=== PATIENT | female | born 1940 | race Two or more races ===

== ENCOUNTER 2023-06-12 10:10 | Emergency (ER) | payer OTHER ==
[~2023-06-12] VITALS: Ht 162.6 cm; Wt 44.0 kg
[2023-06-12 10:46] LABS: Basophils # (auto) 0 10 ^3/uL (0-0.2); Basophils % (auto) 0.6 % (0.0-2.0); Eosinophils # (auto) 0.2 10 ^3/uL (0-0.8); Eosinophils % (auto) 3.2 % (0.0-7.0); Hematocrit 37.7 % (36.0-46.0); Hemoglobin 12.4 g/dL (12.2-16.2); Lymphocytes # (auto) 1.5 10 ^3/uL (0.4-5.4); Lymphocytes % (auto) 26.4 % (10.0-50.0); Mean Corpuscular Hemoglobin 28.2 pg (28.0-32.0); Mean Corpuscular Hgb Conc. 32.8 g/dL (32.0-36.0); Mean Corpuscular Volume 86.1 fL (80.0-100.0); Monocytes # (auto) 0.7 10 ^3/uL (0-1.3); Monocytes % (auto) 12.5 % (0.0-12.0); Neutrophils # (auto) 3.3 10 ^3/uL (1.6-8.6); Neutrophils % (auto) 57.3 % (37.0-80.0); Red Blood Cells 4.38 10^6/uL (4.0-5.20); Red Cell Distribution Width 15.2 % (11.8-14.3); White Blood Cell 5.7 10^3/uL (4.4-10.8)
[2023-06-12] MEDS ORDERED: hydrALAZINE HCL 20 MG/ML VL IV ONE (11:00)
[2023-06-12 11:13] VITALS: TEMP 97.2; O2SAT 98
[2023-06-12 11:19] LABS: Alanine Aminotransferase 11 U/L (7-40); Albumin 4.5 g/dL (3.2-4.8); Alkaline Phosphatase 78 U/L (46-116); Aspartate Aminotransferase 15 U/L (13-40); BUN/Creatinine Ratio 20.5 (10.0-20.0); Bilirubin, Total 0.5 mg/dL (0.2-1.0); Blood Urea Nitrogen 15 mg/dL (9-23); Calcium 9.5 mg/dL (8.5-10.1); Carbon Dioxide 30 mmol/L (20-30); Glucose 81 mg/dL (74-106); Total Protein 7.2 g/dL (5.7-8.2)
[2023-06-12] MEDS ORDERED: cloNIDine 0.1 mg/24hr 7 DAY PATCH TD ONE (11:30)
[2023-06-12] MEDS ORDERED: ACETAMINOPHEN 500 MG TAB PO ONE (11:30)
[2023-06-12 11:31] LABS: Urine Bacteria FEW /hpf (None Seen); Urine Blood Negative /uL (Negative); Urine Clarity Clear (Clear); Urine Color Colorless (Yellow); Urine Hyaline Cast FEW /lpf (0 - 2); Urine Protein, UAD TRACE (Negative); Urine Specific Gravity 1.009 (1.001-1.035); Urine Urobilinogen Normal (Negative); Urine WBC <1 /hpf (0 - 5); Urine pH 6.5 (5.0-8.0)
[2023-06-12] MEDS ORDERED: VANCOMYCIN HCL 1000 MG VL ONE (11:43)
[2023-06-12] MEDS ORDERED: cloNIDine HCL 0.1 MG TAB PO ONE (11:45)
[2023-06-12 11:57] LABS: Anion Gap 5 (5-15); Chloride 103 mmol/L (98-107); Potassium 4.2 mmol/L (3.5-5.1); Sodium 138 mmol/L (136-145)
[2023-06-12 12:37] VITALS: BP 176/75; PULSE 50; RESP 17
== END 2023-06-12 17:28 | disposition home or self-care (01) ==
LOC: ER 10:10
DX: S22.32XA Fracture of one rib, left side, initial encounter for closed fracture (principal); J44.9 Chronic obstructive pulmonary disease, unspecified; I11.0 Hypertensive heart disease with heart failure; I50.9 Heart failure, unspecified; F17.210 Nicotine dependence, cigarettes, uncomplicated; W19.XXXA Unspecified fall, initial encounter; Y93.89 Activity, other specified; Y92.89 Other specified places as the place of occurrence of the external cause; Y99.8 Other external cause status
CPT/HCPCS: 36415; 71045; 73030; 80053; 81001; 83735; 83880; 84484; 85025; 93005; 99285; J3370

== ENCOUNTER 2023-06-27 12:03 | Inpatient (IN) | payer OTHER ==
[~2023-06-27] VITALS: Ht 162.6 cm; Wt 41.0 kg
[2023-06-27] MEDS ORDERED: LABETALOL HCL 5 MG/ML 4ML SYRINGE IV ONE ×4 (12:30→23:00)
[2023-06-27 12:45] VITALS: PULSE 55; RESP 22; O2SAT 98
[2023-06-27 13:06] LABS: Basophils # (auto) 0 10 ^3/uL (0-0.2); Basophils % (auto) 0.5 % (0.0-2.0); Eosinophils # (auto) 0.1 10 ^3/uL (0-0.8); Eosinophils % (auto) 2.1 % (0.0-7.0); Hematocrit 39.1 % (36.0-46.0); Hemoglobin 12.8 g/dL (12.2-16.2); Lymphocytes # (auto) 1.7 10 ^3/uL (0.4-5.4); Lymphocytes % (auto) 25.1 % (10.0-50.0); Mean Corpuscular Hemoglobin 28.3 pg (28.0-32.0); Mean Corpuscular Hgb Conc. 32.8 g/dL (32.0-36.0); Mean Corpuscular Volume 86.5 fL (80.0-100.0); Monocytes # (auto) 0.7 10 ^3/uL (0-1.3); Monocytes % (auto) 9.9 % (0.0-12.0); Neutrophils # (auto) 4.2 10 ^3/uL (1.6-8.6); Neutrophils % (auto) 62.4 % (37.0-80.0); Nucleated Red Blood Cells % 0.1 %; Red Blood Cells 4.52 10^6/uL (4.0-5.20); Red Cell Distribution Width 15.3 % (11.8-14.3); White Blood Cell 6.7 10^3/uL (4.4-10.8)
[2023-06-27 13:30] LABS: Alanine Aminotransferase 14 U/L (7-40); Albumin 4.8 g/dL (3.2-4.8); Alkaline Phosphatase 81 U/L (46-116); Anion Gap 7 (5-15); Aspartate Aminotransferase 27 U/L (13-40); BUN/Creatinine Ratio 15.9 (10.0-20.0); Bilirubin, Total 0.7 mg/dL (0.2-1.0); Blood Urea Nitrogen 10 mg/dL (9-23); Calcium 9.5 mg/dL (8.5-10.1); Carbon Dioxide 26 mmol/L (20-30); Chloride 101 mmol/L (98-107); Glucose 90 mg/dL (74-106); Potassium 4.1 mmol/L (3.5-5.1); Sodium 134 mmol/L (136-145); Total Protein 7.8 g/dL (5.7-8.2)
[2023-06-27] MEDS ORDERED: HYDROcodone-ACET 5/325MG TAB PO ONE ×2 (13:45→21:45)
[2023-06-27 19:21] LABS: Urine Bacteria NONE SEEN /hpf (None Seen); Urine Blood Negative /uL (Negative); Urine Clarity Clear (Clear); Urine Color Colorless (Yellow); Urine Protein, UAD Negative (Negative); Urine Specific Gravity 1.008 (1.001-1.035); Urine Urobilinogen Normal (Negative); Urine WBC <1 /hpf (0 - 5)
[2023-06-27 22:10] VITALS: PULSE 59; RESP 16; O2SAT 96
[2023-06-28] MEDS ORDERED: ACETAMINOPHEN 325 MG TAB PO PRN
[2023-06-28] MEDS ORDERED: ONDANSETRON HCL 4 MG/2 ML VIAL IV PRN
[2023-06-28 05:48] LABS: Basophils # (auto) 0 10 ^3/uL (0-0.2); Basophils % (auto) 0.6 % (0.0-2.0); Eosinophils # (auto) 0.2 10 ^3/uL (0-0.8); Eosinophils % (auto) 3.7 % (0.0-7.0); Hematocrit 36.9 % (36.0-46.0); Hemoglobin 12.3 g/dL (12.2-16.2); Lymphocytes # (auto) 1.5 10 ^3/uL (0.4-5.4); Lymphocytes % (auto) 27.8 % (10.0-50.0); Mean Corpuscular Hemoglobin 28.7 pg (28.0-32.0); Mean Corpuscular Hgb Conc. 33.5 g/dL (32.0-36.0); Mean Corpuscular Volume 85.6 fL (80.0-100.0); Monocytes # (auto) 0.7 10 ^3/uL (0-1.3); Monocytes % (auto) 13.1 % (0.0-12.0); Neutrophils % (auto) 54.8 % (37.0-80.0); Red Cell Distribution Width 15.2 % (11.8-14.3); White Blood Cell 5.4 10^3/uL (4.4-10.8)
[2023-06-28] MEDS: hydrALAZINE HCL 20 MG/ML VL IV PRN (06:02)
[2023-06-28 06:03] LABS: Alanine Aminotransferase 12 U/L (7-40); Albumin 4.3 g/dL (3.2-4.8); Alkaline Phosphatase 69 U/L (46-116); Anion Gap 8 (5-15); Aspartate Aminotransferase 20 U/L (13-40); BUN/Creatinine Ratio 13.6 (10.0-20.0); Blood Urea Nitrogen 9 mg/dL (9-23); Calcium 9.5 mg/dL (8.5-10.1); Carbon Dioxide 28 mmol/L (20-30); Chloride 104 mmol/L (98-107); Glucose 89 mg/dL (74-106); Sodium 140 mmol/L (136-145)
[2023-06-28 06:04] LABS: Bilirubin, Total 0.7 mg/dL (0.2-1.0); Total Protein 7.1 g/dL (5.7-8.2)
[2023-06-28 07:38] VITALS: RESP 16; O2SAT 96
[2023-06-28] MEDS: LISINOPRIL 20 MG TAB PO SCH (09:52)
[2023-06-28] MEDS: CLOPIDOGREL BISULFATE 75 MG TAB PO SCH (09:52)
[2023-06-28] MEDS: ENOXAPARIN SOD 40 MG/0.4 ML SYRINGE SC SCH (09:53)
[2023-06-28] MEDS: ASPirin 81 mg TAB PO SCH (09:56)
[2023-06-28] MEDS: HYDROcodone-ACET 5/325MG TAB PO PRN (10:05)
[2023-06-28] MEDS ORDERED: IOHEXOL 350 MG/ML 100ML IJ ONE (14:40)
[2023-06-28] MEDS ORDERED: PANT40T PO (16:22)
[2023-06-28] MEDS ORDERED: CLOP75TA70 PO (16:22)
[2023-06-28 16:30] VITALS: PULSE 75; RESP 17; O2SAT 98
[2023-06-28 17:29] VITALS: BP 121/60; PULSE 76; RESP 20; TEMP 98.4; O2SAT 99
[2023-06-28 20:00] VITALS: PULSE 102; PULSE 68; RESP 17; O2SAT 89
[2023-06-28 21:49] VITALS: BP 112/67; PULSE 75; RESP 17; TEMP 98.2; O2SAT 98
[2023-06-29 04:56] VITALS: BP 160/64; PULSE 75; RESP 19; TEMP 97.7; O2SAT 95
[2023-06-29] MEDS: HYDROcodone-ACET 5/325MG TAB PO PRN ×2 (05:08→09:58)
[2023-06-29] MEDS: hydrALAZINE HCL 20 MG/ML VL IV PRN (05:26)
[2023-06-29 05:55] LABS: Basophils # (auto) 0 10 ^3/uL (0-0.2); Basophils % (auto) 0.5 % (0.0-2.0); Eosinophils # (auto) 0.1 10 ^3/uL (0-0.8); Hematocrit 35.8 % (36.0-46.0); Hemoglobin 11.9 g/dL (12.2-16.2); Lymphocytes # (auto) 1.2 10 ^3/uL (0.4-5.4); Lymphocytes % (auto) 21.5 % (10.0-50.0); Mean Corpuscular Hemoglobin 28.7 pg (28.0-32.0); Mean Corpuscular Hgb Conc. 33.2 g/dL (32.0-36.0); Mean Corpuscular Volume 86.4 fL (80.0-100.0); Monocytes # (auto) 0.7 10 ^3/uL (0-1.3); Monocytes % (auto) 11.7 % (0.0-12.0); Neutrophils # (auto) 3.7 10 ^3/uL (1.6-8.6); Neutrophils % (auto) 64.3 % (37.0-80.0); Red Blood Cells 4.14 10^6/uL (4.0-5.20); Red Cell Distribution Width 15.4 % (11.8-14.3); White Blood Cell 5.8 10^3/uL (4.4-10.8)
[2023-06-29 06:04] LABS: Anion Gap 7 (5-15); Carbon Dioxide 25 mmol/L (20-30); Chloride 106 mmol/L (98-107); Potassium 3.8 mmol/L (3.5-5.1); Sodium 138 mmol/L (136-145)
[2023-06-29 06:05] LABS: Calcium 9.2 mg/dL (8.7-10.4)
[2023-06-29 06:10] LABS: BUN/Creatinine Ratio 14.8 (10.0-20.0); Blood Urea Nitrogen 9 mg/dL (9-23); Glucose 104 mg/dL (74-106)
[2023-06-29 08:00] VITALS: BP 116/51; PULSE 77; PULSE 84; RESP 19; O2SAT 98
[2023-06-29 09:00] VITALS: BP 104/39; PULSE 82; RESP 17; TEMP 97.7; O2SAT 99
[2023-06-29] MEDS: CLOPIDOGREL BISULFATE 75 MG TAB PO SCH (09:57)
[2023-06-29] MEDS: LISINOPRIL 20 MG TAB PO SCH (09:57)
[2023-06-29] MEDS: ASPirin 81 mg TAB PO SCH (09:58)
[2023-06-29] MEDS: ENOXAPARIN SOD 40 MG/0.4 ML SYRINGE SC SCH (09:59)
[2023-06-29 13:00] VITALS: BP 142/67; PULSE 81; RESP 18; TEMP 97.4; O2SAT 97
[2023-06-29 16:17] VITALS: BP 116/51; PULSE 70; TEMP 36.3
== END 2023-06-29 18:20 | disposition home or self-care (01) | DRG 305 ==
LOC: ER 12:03 → TELE 23:50 → TELE-WESTW 06-28 16:16
PROVIDERS: ADMIT Nurse Practitioner; ATTEND Nurse Practitioner Acute Care
DX: I16.1 Hypertensive emergency (principal); Z68.1 Body mass index [BMI] 19.9 or less, adult; R64 Cachexia; I73.9 Peripheral vascular disease, unspecified; I25.10 Atherosclerotic heart disease of native coronary artery without angina pectoris; E78.5 Hyperlipidemia, unspecified; F17.210 Nicotine dependence, cigarettes, uncomplicated; I11.0 Hypertensive heart disease with heart failure; I50.9 Heart failure, unspecified; I65.23 Occlusion and stenosis of bilateral carotid arteries; J44.9 Chronic obstructive pulmonary disease, unspecified; R29.6 Repeated falls; Z95.5 Presence of coronary angioplasty implant and graft; Z95.1 Presence of aortocoronary bypass graft
CPT/HCPCS: 36415; 70450; 71045; 75635; 80048; 80053; 81001; 84484; 85025; 87081; 93005; 93306; 93886; 96374; 96376; G0378; J3490

== ENCOUNTER 2024-04-05 16:29 | Emergency (ER) | payer OTHER ==
[~2024-04-05] VITALS: Ht 162.6 cm; Wt 45.4 kg
[~2024-04-05 16:29] MED LIST: CLOP75TA70 PO; PANT40T PO
[2024-04-05 16:38] VITALS: BP 118/71; RESP 15; O2SAT 96
[2024-04-05 16:58] VITALS: PULSE 61
[2024-04-05 17:02] LABS: Basophils # (auto) 0.1 10 ^3/uL (0-0.2); Basophils % (auto) 0.8 % (0.0-2.0); Eosinophils # (auto) 0.2 10 ^3/uL (0-0.8); Eosinophils % (auto) 2.6 % (0.0-7.0); Hematocrit 36.2 % (36.0-46.0); Hemoglobin 11.9 g/dL (12.2-16.2); Lymphocytes # (auto) 1.7 10 ^3/uL (0.4-5.4); Lymphocytes % (auto) 21.2 % (10.0-50.0); Mean Corpuscular Hemoglobin 28.8 pg (28.0-32.0); Mean Corpuscular Hgb Conc. 32.9 g/dL (32.0-36.0); Mean Corpuscular Volume 87.5 fL (80.0-100.0); Monocytes # (auto) 0.7 10 ^3/uL (0-1.3); Neutrophils # (auto) 5.2 10 ^3/uL (1.6-8.6); Neutrophils % (auto) 66.4 % (37.0-80.0); Nucleated Red Blood Cells % 0.1 %; Red Blood Cells 4.14 10^6/uL (4.0-5.20); Red Cell Distribution Width 15.4 % (11.8-14.3); White Blood Cell 7.8 10^3/uL (4.4-10.8)
[2024-04-05 17:25] LABS: Alanine Aminotransferase 11 U/L (7-40); Alkaline Phosphatase 101 U/L (46-116); Calcium 9.6 mg/dL (8.7-10.4); Carbon Dioxide 25 mmol/L (20-30); Chloride 107 mmol/L (98-107); Glucose 117 mg/dL (74-106); Potassium 3.8 mmol/L (3.5-5.1)
[2024-04-05 17:26] LABS: Anion Gap 8 (5-15); Aspartate Aminotransferase 18 U/L (13-40); BUN/Creatinine Ratio 13.6 (10.0-20.0); Bilirubin, Total 0.2 mg/dL (0.2-1.0); Blood Urea Nitrogen 11 mg/dL (9-23); Sodium 140 mmol/L (136-145); Total Protein 6.3 g/dL (5.7-8.2)
== END 2024-04-05 19:04 | disposition left against medical advice (07) ==
LOC: ER 16:29
DX: R51.9 Headache, unspecified (principal); R42 Dizziness and giddiness; M54.2 Cervicalgia; F17.210 Nicotine dependence, cigarettes, uncomplicated
CPT/HCPCS: 36415; 70450; 80053; 82962; 84484; 85025; 93005

== ENCOUNTER 2024-07-19 19:25 | Inpatient (IN) | payer OTHER ==
[~2024-07-19] VITALS: Ht 157.5 cm; Wt 44.4 kg
[2024-07-19 20:40] VITALS: BP 114/64; PULSE 77; RESP 18; TEMP 97.8; O2SAT 99
[2024-07-19 20:48] VITALS: BP 114/64; PULSE 77; RESP 18; TEMP 97.8; O2SAT 98
[2024-07-19 21:00] VITALS: BP 114/64; PULSE 77; RESP 18; TEMP 97.8; O2SAT 98
[2024-07-19] MEDS ORDERED: NITROGLYCERIN 0.4 MG SL TAB SL PRN (23:45)
[2024-07-19] MEDS ORDERED: HYDROcodone-ACET 5/325MG TAB PO PRN (23:45)
[2024-07-19] MEDS ORDERED: MORPHINE SULFATE INJ 2 MG/ml SYRG IV PRN (23:45)
[2024-07-19] MEDS ORDERED: DOCUSATE SOD 100 MG CAP PO PRN (23:45)
[2024-07-19] MEDS ORDERED: ACETAMINOPHEN 325 MG TAB PO PRN (23:45)
[2024-07-19] MEDS ORDERED: ONDANSETRON HCL 4 MG/2 ML VIAL IV PRN (23:45)
[2024-07-19] MEDS ORDERED: METO25TA93 PO (23:55)
[2024-07-19] MEDS ORDERED: AMLO1TAB23 PO (23:55)
[2024-07-19] MEDS ORDERED: AMLO1TAB22 PO (23:55)
[2024-07-19] MEDS ORDERED: LISI10TA34 PO (23:55)
[2024-07-19] MEDS ORDERED: MET25T PO (23:55)
[2024-07-19] MEDS ORDERED: ASPI-628 PO (23:55)
[2024-07-20] VITALS (8 sets, daily range): BP systolic 125–168; BP diastolic 52–76; PULSE 61–79; RESP 17–18; TEMP 97.7–98.2; O2SAT 96–98
[2024-07-20] MEDS: D5W/SOD CHLO 0.9% 1,000 ML IV SCH (00:08)
[2024-07-20] MEDS: LEVOTHYROXINE SODIUM 50 MCG TAB PO SCH (05:54)
[2024-07-20 07:29] LABS: Basophils # (auto) 0.1 10 ^3/uL (0-0.2); Basophils % (auto) 0.9 % (0.0-2.0); Eosinophils # (auto) 0.2 10 ^3/uL (0-0.8); Eosinophils % (auto) 4.1 % (0.0-7.0); Hematocrit 30.1 % (36.0-46.0); Lymphocytes # (auto) 1.5 10 ^3/uL (0.4-5.4); Lymphocytes % (auto) 24.5 % (10.0-50.0); Mean Corpuscular Hemoglobin 29.3 pg (28.0-32.0); Mean Corpuscular Hgb Conc. 33.3 g/dL (32.0-36.0); Mean Corpuscular Volume 87.9 fL (80.0-100.0); Monocytes # (auto) 0.5 10 ^3/uL (0-1.3); Monocytes % (auto) 7.6 % (0.0-12.0); Neutrophils # (auto) 3.8 10 ^3/uL (1.6-8.6); Neutrophils % (auto) 62.9 % (37.0-80.0); Nucleated Red Blood Cells % 0.2 %; Platelet Count (auto) 384 10^3/uL (140-450); Red Blood Cells 3.42 10^6/uL (4.0-5.20); Red Cell Distribution Width 14.7 % (11.8-14.3)
[2024-07-20 07:38] LABS: Albumin 3.9 g/dL (3.2-4.8); Alkaline Phosphatase 69 U/L (46-116); Anion Gap 8 (5-15); Aspartate Aminotransferase 12 U/L (13-40); Bilirubin, Total 0.4 mg/dL (0.2-1.0); Blood Urea Nitrogen 8 mg/dL (9-23); Calcium 9.2 mg/dL (8.7-10.4); Carbon Dioxide 24 mmol/L (20-31); Chloride 107 mmol/L (98-107); Glucose 105 mg/dL (74-106); Potassium 3.9 mmol/L (3.5-5.1); Sodium 139 mmol/L (136-145)
[2024-07-20 07:39] LABS: Total Protein 6.3 g/dL (5.7-8.2)
[2024-07-20 07:45] LABS: Alanine Aminotransferase < 9 U/L (7-40)
[2024-07-20] MEDS: PANTOPRAZOLE 40 MG/10 ML VIAL INJ IV SCH (12:08)
[2024-07-20] MEDS: METOPROLOL TARTRATE 25 MG TAB PO SCH (12:08)
[2024-07-20] MEDS: TAMSULOSIN HYDROCHLORIDE 0.4 MG CAP PO SCH (18:00)
[2024-07-20] MEDS: hydrALAZINE HCL 20 MG/ML VL IV PRN (18:16)
[2024-07-20] MEDS: ATORVASTATIN 20 MG TAB PO SCH (21:48)
[2024-07-20] MEDS: amLODIPine BESYLATE 5 MG TAB PO SCH (21:48)
[2024-07-21] VITALS (8 sets, daily range): BP systolic 114–150; BP diastolic 54–71; PULSE 62–97; RESP 17–18; TEMP 97.4–98.4; O2SAT 96–99
[2024-07-21 07:51] LABS: Basophils # (auto) 0 10 ^3/uL (0-0.2); Basophils % (auto) 0.3 % (0.0-2.0); Eosinophils # (auto) 0 10 ^3/uL (0-0.8); Eosinophils % (auto) 0.5 % (0.0-7.0); Hematocrit 32.7 % (36.0-46.0); Hemoglobin 10.7 g/dL (12.2-16.2); Lymphocytes # (auto) 1.3 10 ^3/uL (0.4-5.4); Lymphocytes % (auto) 15.6 % (10.0-50.0); Mean Corpuscular Hemoglobin 29.1 pg (28.0-32.0); Mean Corpuscular Hgb Conc. 32.8 g/dL (32.0-36.0); Mean Corpuscular Volume 88.7 fL (80.0-100.0); Monocytes # (auto) 0.5 10 ^3/uL (0-1.3); Monocytes % (auto) 6.3 % (0.0-12.0); Neutrophils # (auto) 6.3 10 ^3/uL (1.6-8.6); Neutrophils % (auto) 77.3 % (37.0-80.0); Nucleated Red Blood Cells % 0.1 %; Platelet Count (auto) 391 10^3/uL (140-450); Red Blood Cells 3.69 10^6/uL (4.0-5.20); Red Cell Distribution Width 15.1 % (11.8-14.3); White Blood Cell 8.1 10^3/uL (4.4-10.8)
[2024-07-21 08:03] LABS: Alkaline Phosphatase 73 U/L (46-116); Anion Gap 9 (5-15); Calcium 9.7 mg/dL (8.7-10.4); Carbon Dioxide 23 mmol/L (20-31); Chloride 105 mmol/L (98-107); Glucose 110 mg/dL (74-106); Potassium 3.6 mmol/L (3.5-5.1); Sodium 137 mmol/L (136-145)
[2024-07-21 08:04] LABS: Albumin 4.2 g/dL (3.2-4.8); Aspartate Aminotransferase 16 U/L (13-40); Bilirubin, Total 0.4 mg/dL (0.2-1.0); Total Protein 6.8 g/dL (5.7-8.2)
[2024-07-21 08:14] LABS: Alanine Aminotransferase < 9 U/L (7-40); BUN/Creatinine Ratio 9.4 (10.0-20.0); Blood Urea Nitrogen < 5 mg/dL (9-23)
[2024-07-21 08:26] LABS: INR 1.05 (0.9-1.15); Partial Thromboplastin Time 26.1 SEC (24.5-34.5); Prothrombin Time 11.1 sec (9.3-11.8)
[2024-07-22 05:00] VITALS: BP 150/67; PULSE 69; RESP 18; TEMP 98.4; O2SAT 98
[2024-07-22 06:59] LABS: Chloride 106 mmol/L (98-107); Potassium 3.7 mmol/L (3.5-5.1); Sodium 138 mmol/L (136-145)
[2024-07-22 07:00] LABS: Anion Gap 7 (5-15); Carbon Dioxide 25 mmol/L (20-31)
[2024-07-22 07:01] LABS: Calcium 9.4 mg/dL (8.7-10.4)
[2024-07-22 07:05] LABS: BUN/Creatinine Ratio 10.3 (10.0-20.0); Blood Urea Nitrogen 7 mg/dL (9-23); Glucose 103 mg/dL (74-106)
[2024-07-22 07:09] LABS: Basophils # (auto) 0 10 ^3/uL (0-0.2); Basophils % (auto) 0.5 % (0.0-2.0); Eosinophils # (auto) 0.1 10 ^3/uL (0-0.8); Eosinophils % (auto) 2.1 % (0.0-7.0); Hematocrit 29.8 % (36.0-46.0); Lymphocytes # (auto) 1.5 10 ^3/uL (0.4-5.4); Mean Corpuscular Hgb Conc. 33.6 g/dL (32.0-36.0); Mean Corpuscular Volume 86.4 fL (80.0-100.0); Monocytes # (auto) 0.6 10 ^3/uL (0-1.3); Monocytes % (auto) 9.3 % (0.0-12.0); Neutrophils # (auto) 4.6 10 ^3/uL (1.6-8.6); Neutrophils % (auto) 67.1 % (37.0-80.0); Nucleated Red Blood Cells % 0.1 %; Platelet Count (auto) 387 10^3/uL (140-450); Red Blood Cells 3.45 10^6/uL (4.0-5.20); Red Cell Distribution Width 14.8 % (11.8-14.3); White Blood Cell 6.9 10^3/uL (4.4-10.8)
[2024-07-22 08:30] VITALS: PULSE 91; RESP 18; O2SAT 99
[2024-07-22 09:00] VITALS: BP 124/57; PULSE 85; RESP 16; TEMP 98; O2SAT 93
[2024-07-22] MEDS: PANTOPRAZOLE 40 MG TAB PO SCH (10:06)
[2024-07-22] MEDS ORDERED: PANT40T PO (10:44)
[2024-07-22 13:00] VITALS: BP 127/67; PULSE 75; RESP 18; TEMP 97.6; O2SAT 98
[2024-07-22 13:59] VITALS: BP 134/91; PULSE 91; RESP 18; TEMP 98.1; O2SAT 99
== END 2024-07-22 15:52 | disposition home or self-care (01) | DRG 377 ==
LOC: TELE-CENTR 20:40 → CENTRAL 07-21 03:36
PROVIDERS: ADMIT Internal Medicine; ATTEND Internal Medicine
DX: K92.2 Gastrointestinal hemorrhage, unspecified (principal); E43 Unspecified severe protein-calorie malnutrition; Z68.1 Body mass index [BMI] 19.9 or less, adult; I50.30 Unspecified diastolic (congestive) heart failure; D64.9 Anemia, unspecified; I11.0 Hypertensive heart disease with heart failure; I25.10 Atherosclerotic heart disease of native coronary artery without angina pectoris; E78.5 Hyperlipidemia, unspecified; I73.9 Peripheral vascular disease, unspecified; K21.9 Gastro-esophageal reflux disease without esophagitis; E03.9 Hypothyroidism, unspecified; H91.93 Unspecified hearing loss, bilateral; F17.210 Nicotine dependence, cigarettes, uncomplicated; I65.23 Occlusion and stenosis of bilateral carotid arteries; Z98.61 Coronary angioplasty status; T39.015A Adverse effect of aspirin, initial encounter; T45.525A Adverse effect of antithrombotic drugs, initial encounter
CPT/HCPCS: 36415; 80048; 80053; 82270; 84443; 85025; 85610; 85730; 97110; 97116; 97163; 97530; G0378; J2470

== ENCOUNTER 2024-10-31 11:42 | Emergency (ER) | payer OTHER ==
[~2024-10-31] VITALS: Ht 162.6 cm; Wt 47.5 kg
[~2024-10-31 11:42] MED LIST changes: +AMLO1TAB23 PO; -CLOP75TA70 PO; +LISI10TA34 PO; +MET25T PO; +METO25TA93 PO
[2024-10-31] MEDS: CLINDAMYCIN 600MG IV 50 ML IV ONE (12:00)
--- NOTE | 2024-10-31 12:10 | ED.PDOC ---
Musculoskeletal HPI Comments 84y F who presents to the ED for chief complaint of lower extremity swelling. Per pt son, pt has been having R lower extremity swelling for the past 1 month. Pt son states pt does not like hospitals and did not want to been evaluated for her symptoms. Pt for the past 1 week has noted L lower extremity swelling and pain with noted multiple sores and states the pain became severe pt son brought pt to the local urgent. Urgent care staff referred pt to the ED due to pt history of CHF for further evaluation. Pt now in the ED, otherwise denies fever, cough, chills, shortness of breath or chest pain. Pt denies any other symptoms at this time. Chief Complaint: Lower Extremity Time Seen by MD: 12:04 Primary Care Provider: ADRIANA Reviewed Notes: Nurses Notes, Clinic Receptionist Notes, Medications, Allergies (NKDA ) Allergies: Coded Allergies: No Known Drug Allergy (Verified Allergy, Unknown, 09/28/23) Home Meds Active Scripts Pantoprazole Sodium Sesquihydr (Pantoprazole Sodium) 40 Mg Tab, 1 TAB PO BID for 14 Days, #28 TAB Prov:CASSI PHAM RESIDENT 07/22/24 Reported Medications Metoprolol Tartrate (Lopressor) 25 Mg Tb, 1 TAB PO BID 07/19/24 Lisinopril (Lisinopril) 10 Mg Tab, 1 TAB PO DAILY 07/19/24 Amlodipine Besylate (Amlodipine Besylate) 10 Mg Tab, 1 TAB PO DAILY 07/19/24 Metoprolol Succinate (Metoprolol Succinate Er) 25 Mg Tab, 1 TAB PO DAILY 07/19/24 Information Source: Patient, Relative Mode of Arrival: Ambulatory Brought in by: pt son Location: Bilateral Extremity Location: Foot, Leg Timing: Weeks, Months Prehospital treatment: None Severity: Moderate Able to Move Extremity: Yes Bear Weight: Limited Pain: Moderate Mechanism: Spontaneous Circumstances: Spontaneous Onset of Symptoms: Spontaneous Symptoms: Swelling, Pain DVT Risk Factors: CHF Last Tetanus: Unknown Associated signs and symptoms: Swelling, Leg pain, Foot pain Past Medical History PAST MEDICAL HISTORY: CHF, High Lipids, HTN Surgical History: PTCA Surgical History (Other): L leg surgery PETROLEUM ENGINEER History: Denies all PETROLEUM ENGINEER Hx Family History Family History: Reviewed,noncontributory to illness Social History Smoker: Cigarettes Alcohol: Occasionally Drugs: Denies Drug Use Lives In: Home Constitutional: denies: chills, diaphoresis, fatigue, fever, malaise, sweats, weakness, others EENTM: denies: blurred vision, double vision, ear bleeding, ear discharge, ear drainage, ear pain, ear ringing, eye pain, eye redness, hearing loss, mouth pain, mouth swelling, nasal discharge, nose bleeding, nose congestion, nose pa in, photophobia, tearing, throat pain, throat swelling, voice changes, others Respiratory: denies: cough, hemoptysis, orthopnea, SOB at rest, shortness of breath, SOB with excertion, stridor, wheezing, others Cardiovascular: denies: chest pain, dizzy spells, diaphoresis, Dyspnea on exertion, edema, irregular heart beat, left arm pain, lightheadedness, palpitations, PND, syncope, others Gastrointestinal: denies: abdomen distended, abdominal pain, blood streaked bowels, constipated, diarrhea, dysphagia, difficulty swallowing, hematemesis, melena, nausea, poor appetite, poor fluid intake, rectal bleeding, rectal pain, vomiting, others Genitourinary: denies: abnormal vagina bleeding, burning, dyspareunia, dysuria, flank pain, frequency, hematuria, incontinence, pain, , vagina discharge, urgency, others Neurological: denies: dizziness, fainting, headache, left sided numbness, left sided weakness, numbness, paresthesia, pre-existing deficit, right sided numbness, right sided weakness, seizure, speech problems, tingling, tremors, weakness, others Musculoskeletal: reports: joint pain (b/l), joint swelling (b/l); denies: back pain, gout, muscle pain, muscle stiffness, neck pain, others Integumetry: denies: bruises, change in color, change in hair/nails, dryness, laceration, lesions, lumps, rash, wounds, others Allergic/Immunocompromised: denies: Difficulty Healing, Frequent Infections, Hives, Itching, others Hematologic/Lymphatic: denies: anemia, blood clots, easy bleeding, easy bruising, swollen glands, others Endocrine: denies: excessive hunger, excessive sweating, excessive thirst, excessive urination, flushing, intolerance to cold, intolerance to heat, unexplained weight gain, unexplained weight loss, others Psychiatric: denies: anxiety, bipolar disorder, depression, hopeless, panic disorder, schizophrenia, sleepless, suicidal, others All Other Systems: Reviewed and Negative Physical Exam General Appearance: Moderate Distress HEENT: Normal ENT Inspection, Pharynx Normal, TMs Normal Neck: Full Range of Motion, Non-Tender, Normal, Normal Inspection Respiratory: Chest Non-Tender, Lungs Clear, No Accessory Muscle Use, No Respiratory Distress, Normal Breath Sounds Cardiovascular: No Edema, No JVD, No Murmur, No Gallop, Normal Peripheral Pulses, Regular Rate/Rhythm Breast Exam: Deferred Gastrointestinal: No Organomegaly, Non Tender, No Pulsatile Mass, Normal Bowel Sounds, Soft Genitalia: Deferred Pelvic: Deferred Rectal: Deferred Extremities: No calf tenderness, Normal capillary refill, Normal inspection, Normal range of motion, Non-tender, No pedal edema Musculoskeletal : Apperance: Normal Neurologic: Alert, wafer machine operator II-XII nml as Tested, No Motor Deficits, Normal Affect, Normal Mood, No Sensory Deficits Cerebellar Function: Normal Reflexes: Normal Skin: Dry, Normal Color, Warm Lymphatic: No Adenopathy Was a procedure done? Was a procedure done?: No Differential Diagnosis EXT Differential Diagnosis: Cellulitis, CHF, Deep Vein Thrombosis, Gout, Arthritis Other Differential Diagnosis cellulitis, X-Ray, Labs, Meds, VS Vital Signs Date Time Temp Pulse Resp B/P (MAP) Pulse Ox O2 Delivery O2 Flow Rate FiO2 10/31/24 14:18 98.3 65 18 135/42 (73) 95 98.3 10/31/24 12:30 69 16 95 Room Air 10/31/24 12:30 69 18 140/53 (82) 95 10/31/24 12:02 65 10/31/24 11:55 97.6 65 18 155/60 (91) 93 Lab Test 10/31/24 12:12 Range/Units White Blood Count 7.0 4.4-10.8 10^3/uL Red Blood Count 4.27 4.0-5.20 10^6/uL Hemoglobin 9.8 L 12.2-16.2 g/dL Hematocrit 31.1 L 36.0-46.0 % Mean Corpuscular Volume 72.9 L 80.0-100.0 fL Mean Corpuscular Hemoglobin 23.0 L 28.0-32.0 pg Mean Corpuscular Hemoglobin Concent 31.5 L 32.0-36.0 g/dL Red Cell Distribution Width 16.9 H 11.8-14.3 % Platelet Count 477 H 140-450 10^3/uL Mean Platelet Volume 7.1 6.9-10.8 fL Neutrophils (%) (Auto) 64.5 37.0-80.0 % Lymphocytes (%) (Auto) 21.7 10.0-50.0 % Monocytes (%) (Auto) 11.6 0.0-12.0 % Eosinophils (%) (Auto) 1.2 0.0-7.0 % Basophils (%) (Auto) 1.0 0.0-2.0 % Neutrophils # (Auto) 4.5 1.6-8.6 10 ^3/uL Lymphocytes # (Auto) 1.5 0.4-5.4 10 ^3/uL Monocytes # (Auto) 0.8 0-1.3 10 ^3/uL Eosinophils # (Auto) 0.1 0-0.8 10 ^3/uL Basophils # (Auto) 0.1 0-0.2 10 ^3/uL Nucleated Red Blood Cells 0.0 % Erythrocyte Sedimentation Rate 17 0-20 mm/hr Sodium Level 131 L 136-145 mmol/L Potassium Level 4.4 3.5-5.1 mmol/L Chloride Level 100 98-107 mmol/L Carbon Dioxide Level 22 20-31 mmol/L Anion Gap 9 5-15 Blood Urea Nitrogen 9 9-23 mg/dL Creatinine 0.73 0.550-1.02 mg/dL Glomerular Filtration Rate Calc 82 >90 mL/min BUN/Creatinine Ratio 12.3 10.0-20.0 Serum Glucose 107 H 74-106 mg/dL Uric Acid 5.6 3.1-7.8 mg/dL Calcium Level 10.1 8.7-10.4 mg/dL B-Type Natriuretic Peptide 541.09 0-100 pg/mL Current Medications Medications (Trade) Dose Ordered Sig/Felipe Route Start Time Stop Time Status Last Admin Clindamycin Phosphate 50 ml @ 50 mls/hr ONCE ONCE IV 10/31/24 12:00 10/31/24 12:59 DC 10/31/24 13:26 The patient's CBC shows anemia with a hemoglobin of 9.8 hematocrit of 31.1 The patient's platelets are within normal limits The uric acid is within normal limits The BNP is 541 The patient was started on clindamycin IV piggyback The patient was being admitted with a diagnosis of bilateral lower extremity cellulitis The patient understands and agrees with the management. Images Reviewed?: Images reviewed and evaluated by me Time of 1ST Reevaluation: 12:35 Reevaluation 1ST: Unchanged Patient Education/Counseling: Diagnosis, Treatment, Prognosis Family Education/Counseling: Diagnosis, Treatment, Prognosis Additional Information - I reviewed the following notes from patient's past medical encounters: - The following tests were ordered, and results were reviewed by me: (Labs, X- Ray, EKG): cbc, cmp, ESR, uric acid, b/l lower extremity US, BNP - Additional information was gathered from interviewing the following independen t Historian: (Family, Other Providers, EMT): pt son, - I reviewed and agreed with the following test results read by other provider: (X-ray, CT, US): radiologist - I discussed treatments and results with medical personnel and: (consultants, family): none Departure 1 Departure Time of Disposition: 14:28 Impression: Primary Impression: Bilateral lower leg cellulitis Disposition: ADMITTED INPATIENT Admit to: Med Surg Condition: Fair Critical Care Note Critical Care Time?: No Stability Stability form required: Yes Unstable for transfer: ED Physician Assesment (Clinical assesment) Heart Score Heart Score: Heart Score Response (Comments) Value History N/A 0 EKG N/A 0 Age N/A 0 Risk Factors N/A 0 Troponin N/A 0 Total 0 I personally scribed for FAMILIA JAMES MD ([email or web address]) on 10/31/24 at 12:10. Electronically submitted by Carl Robbins ([email or web address]). FAMILIA JAMES MD Oct 31, 2024 12:10
[2024-10-31 12:29] LABS: Basophils # (auto) 0.1 10 ^3/uL (0-0.2); Eosinophils # (auto) 0.1 10 ^3/uL (0-0.8); Hemoglobin 9.8 g/dL (12.2-16.2); Lymphocytes # (auto) 1.5 10 ^3/uL (0.4-5.4); Monocytes # (auto) 0.8 10 ^3/uL (0-1.3); Neutrophils # (auto) 4.5 10 ^3/uL (1.6-8.6)
[2024-10-31 12:30] LABS: Eosinophils % (auto) 1.2 % (0.0-7.0); Hematocrit 31.1 % (36.0-46.0); Lymphocytes % (auto) 21.7 % (10.0-50.0); Mean Corpuscular Hgb Conc. 31.5 g/dL (32.0-36.0); Mean Corpuscular Volume 72.9 fL (80.0-100.0); Monocytes % (auto) 11.6 % (0.0-12.0); Neutrophils % (auto) 64.5 % (37.0-80.0); Platelet Count (auto) 477 10^3/uL (140-450); Red Blood Cells 4.27 10^6/uL (4.0-5.20); Red Cell Distribution Width 16.9 % (11.8-14.3)
[2024-10-31 12:33] LABS: Chloride 100 mmol/L (98-107); Potassium 4.4 mmol/L (3.5-5.1)
[2024-10-31 12:34] LABS: Anion Gap 9 (5-15); Carbon Dioxide 22 mmol/L (20-31)
[2024-10-31 12:35] LABS: Calcium 10.1 mg/dL (8.7-10.4); Sodium 131 mmol/L (136-145)
[2024-10-31 12:38] LABS: Uric Acid 5.6 mg/dL (3.1-7.8)
[2024-10-31 12:39] LABS: BUN/Creatinine Ratio 12.3 (10.0-20.0)
[2024-10-31 12:40] LABS: Blood Urea Nitrogen 9 mg/dL (9-23); Glucose 107 mg/dL (74-106)
[2024-10-31 13:07] LABS: Erythrocyte Sedimentation Rate 17 mm/hr (0-20)
--- NOTE | 2024-10-31 13:40 | DVH ---
BILATERAL LOWER EXTREMITY VENOUS DOPPLER CLINICAL HISTORY: swelling Technique: Duplex Doppler evaluation of the deep venous systems of both lower extremities from the co mmon femoral veins to the popliteal veins including color Doppler and spectral/pulsed waveform analys is was performed. COMPARISON: None FINDINGS: The right and left common femoral, superficial femoral, popliteal, posterior tibial veins and trifur cations appear patent with normal augmentation, phasicity, compressibility and color-flow. There is a 3.4 cm umanzor's cyst in the left popliteal fossa. IMPRESSION: 1. There is no sonographic evidence for DVT in the lower extremities. HS:Y
[2024-10-31 14:18] VITALS: BP 135/42; PULSE 65; RESP 18; TEMP 98.3; O2SAT 95
== END 2024-10-31 17:20 | disposition left against medical advice (07) ==
LOC: ER 11:49
DX: L03.115 Cellulitis of right lower limb (principal); L03.116 Cellulitis of left lower limb; I11.0 Hypertensive heart disease with heart failure; I50.9 Heart failure, unspecified; E78.5 Hyperlipidemia, unspecified; F17.210 Nicotine dependence, cigarettes, uncomplicated; Z79.899 Other long term (current) drug therapy; Z98.890 Other specified postprocedural states
CPT/HCPCS: 36415; 80048; 83880; 84550; 85025; 85652; 93970; 96365; 99285; J3490

== ENCOUNTER 2024-12-05 00:23 | Inpatient (IN) | payer OTHER ==
[~2024-12-05] VITALS: Ht 162.6 cm; Wt 44.2 kg
[~2024-12-05 00:23] MED LIST changes: +CLOP75TA70 PO; +FURO20TA3 PO; +HYDR-4798 PO; +MECL-126 PO; +PANT40TA2 PO; +POTA-228 PO
--- NOTE | 2024-12-05 00:33 | ED.PDOC ---
History of Present Illness HPI Comments 84 year old female brought in by EMS presents to the ED with a chief complaint of a-fib/RVR onset yesterday (12/04/24). Patient was transferred from [facility] due to A-fib/RVR, sepsis secondary to Pneumonia, patient is currently on Cardizem. Per EMS, patient was treated with IV fluids, Azithromycin, Rocephin, O2 sat 91% on 5L. Patient is a poor historian, complains of LT shoulder pain. PMHx a-fib, CHF, HLD, HTN. No other symptoms or modifying factors present at this time. Time Seen by MD: 01:35 Primary Care Provider: WRIGHT Reviewed Notes: Medications, Allergies Allergies: Coded Allergies: No Known Drug Allergy (Verified Allergy, Unknown, 09/28/23) Home Meds Active Scripts Pantoprazole Sodium Sesquihydr (Pantoprazole Sodium) 40 Mg Tab, 1 TAB PO BID for 14 Days, #28 TAB Prov:CASSI PHAM RESIDENT 07/22/24 Reported Medications Metoprolol Tartrate (Lopressor) 25 Mg Tb, 1 TAB PO BID 07/19/24 Lisinopril (Lisinopril) 10 Mg Tab, 1 TAB PO DAILY 07/19/24 Amlodipine Besylate (Amlodipine Besylate) 10 Mg Tab, 1 TAB PO DAILY 07/19/24 Metoprolol Succinate (Metoprolol Succinate Er) 25 Mg Tab, 1 TAB PO DAILY 07/19/24 Information Source: Patient, Emergency Med Personnel Mode of Arrival: EMS Severity: Moderate Timing: Days Duration: Since onset Prehospital treatment: None Vital Signs Vital Signs Date Time Temp Pulse Resp B/P (MAP) Pulse Ox O2 Delivery O2 Flow Rate FiO2 12/05/24 01:00 82 12/05/24 00:49 98.3 16 105/45 (65) 30 98.3 Physical Exam General: Awake, alert and oriented. No acute distress. Skin: Skin in warm, dry and intact. Appropriate color for ethnicity. HEENT: The head is normocephalic and atraumatic. Conjunctivae are clear without exudates or hemorrhage. Sclera is non-icteric. EOM are intact. No signs of nystagmus. Eyelids are normal in appearance without swelling or lesions. Oral mucosa is pink and moist Neck: The neck is supple with normal range of motion. No JVD. Cardiac: Heart rate and rhythm are normal. No murmurs, gallops, or rubs are auscultated. Respiratory: No signs of respiratory distress. Lung sounds are clear in all lobes bilaterally without rales, ronchi, or wheezes. Abdominal: Abdomen is soft, non-tender without distention. Bowel sounds are present and normoactive in all four quadrants. Extremities: Upper and lower extremities are atraumatic in appearance without deformity or edema. Neurological: The patient is awake, alert and oriented to person, place, and time with normal speech. Speech is clear. There is no facial asymmetry. Psychiatric: Appropriate mood and affect. Good judgement and insight. No visual or auditory hallucinations. Review of Systems: REVIEW OF SYSTEMS: No fever, no chills, or fatigue HEENT: No sore throat, no earache, no congestion, no neck pain. Cardiac: No chest pain. No palpitations. Lungs: No shortness of breath, no cough. GI: No nausea, no vomiting, no diarrhea, no constipation, no abdominal pain : No dysuria, frequency, or urgency. No hematuria. Musculoskeletal: No joint pain , no joint swelling, no extremity edema. Skin: No rash, no itching. Neuro: No headache, no dizziness, no weakness Past Medical History PAST MEDICAL HISTORY: AFIB, CHF, High Lipids, HTN Surgical History: PTCA CLOTH HAND History: Denies all CLOTH HAND Hx Family History Family History: Reviewed,noncontributory to illness Social History Smoker: Cigarettes Alcohol: Occasionally Drugs: Denies Drug Use Lives In: Home Was a procedure done? Was a procedure done?: No Differential Dx Considerations may include: Sepsis, urinary tract infection, atrial fibrillation, ACS, pneumonia, pulmonary edema, he will congestive heart failure with X-Ray, Labs, Meds, VS Vital Signs Date Time Temp Pulse Resp B/P (MAP) Pulse Ox O2 Delivery O2 Flow Rate FiO2 12/05/24 01:00 82 12/05/24 00:49 98.3 111 16 105/45 (65) 30 98.3 12/05/24 00:44 109 12/05/24 00:41 98.3 102 16 115/82 (93) 100 Lab Test 12/05/24 02:30 12/05/24 00:35 Range/Units Haptoglobin Pending Lactic Acid Level Pending 5.4 *H 0.4-2.0 mmol/L White Blood Count 14.1 H 4.4-10.8 10^3/uL Red Blood Count 3.86 L 4.0-5.20 10^6/uL Hemoglobin 8.9 L 12.2-16.2 g/dL Hematocrit 29.0 L 36.0-46.0 % Mean Corpuscular Volume 75.2 L 80.0-100.0 fL Mean Corpuscular Hemoglobin 23.2 L 28.0-32.0 pg Mean Corpuscular Hemoglobin Concent 30.8 L 32.0-36.0 g/dL Red Cell Distribution Width 19.0 H 11.8-14.3 % Platelet Count 300 140-450 10^3/uL Mean Platelet Volume 7.7 6.9-10.8 fL Neutrophils (%) (Auto) 37.0-80.0 % Lymphocytes (%) (Auto) 10.0-50.0 % Monocytes (%) (Auto) 0.0-12.0 % Basophils (%) (Auto) 0.0-2.0 % Neutrophils # (Auto) 1.6-8.6 10 ^3/uL Lymphocytes # (Auto) 0.4-5.4 10 ^3/uL Monocytes # (Auto) 0-1.3 10 ^3/uL Differential Total Cells Counted Pending Neutrophils % (Manual) Pending Band Neutrophils % (Manual) Pending Lymphocytes % (Manual) Pending Monocytes % (Manual) Pending Eosinophils % (Manual) Pending Basophils % (Manual) Pending Metamyelocytes % (manual) Pending Myelocytes % (Manual) Pending Promyelocytes % (Manual) Pending Blast Cells % (Manual) Pending Reactive Lymphocytes Pending Platelet Estimate Pending Reticulocyte Count (auto) 0.82 0.5-1.5 % Sodium Level 137 136-145 mmol/L Potassium Level 4.0 3.5-5.1 mmol/L Chloride Level 103 98-107 mmol/L Carbon Dioxide Level 20 20-31 mmol/L Anion Gap 14 5-15 Blood Urea Nitrogen 36 H 9-23 mg/dL Creatinine 1.41 H 0.550-1.02 mg/dL Glomerular Filtration Rate Calc 37 >90 mL/min BUN/Creatinine Ratio 25.5 H 10.0-20.0 Serum Glucose 109 H 74-106 mg/dL Calcium Level 9.6 8.7-10.4 mg/dL Iron Level Pending Total Iron Binding Capacity Pending Percent Iron Saturation Pending Ferritin Pending Total Bilirubin 0.3 0.2-1.0 mg/dL Aspartate Amino Transferase (AST) 37 13-40 U/L Alanine Aminotransferase (ALT) 15 7-40 U/L Alkaline Phosphatase 72 46-116 U/L Troponin I High Sensitivity 148 *H </=34 ng/L B-Type Natriuretic Peptide 651.16 0-100 pg/mL Total Protein 6.4 5.7-8.2 g/dL Albumin 3.9 3.2-4.8 g/dL Folic Acid Pending Current Medications Medications (Trade) Dose Ordered Sig/Felipe Route Start Time Stop Time Status Last Admin Pantoprazole Sodium (Protonix) 40 mg ONCE ONCE IV 12/05/24 02:15 12/05/24 02:16 DC 12/05/24 02:23 Sodium Chloride 500 ml @ 500 mls/hr Q1H ONCE IV 12/05/24 02:15 12/05/24 03:14 12/05/24 02:16 Time of 1ST Reevaluation: 02:05 Reevaluation 1ST: Unchanged Patient Education/Counseling: Diagnosis, Treatment, Prognosis Family Education/Counseling: No Family Present Departure 1 Departure Time of Disposition: 00:54 Impression: Primary Impression: Sepsis Additional Impressions: Pneumonia Atrial fibrillation with RVR Hypoxia Chronic HFrEF (heart failure with reduced ejection fraction) Disposition: ADMITTED INPATIENT Condition: Serious Comments 84-year-old female transferred from [facility] for admission for sepsis se condary to urinary tract infection, AFib with RVR. Patient currently remains on Cardizem drip. IV fluids administered carefully secondary to history of heart failure with reduced ejection fraction. Extensive evaluation was performed in attempt to identify or rule out: (See differential diagnosis section) The following tests were ordered, and results were reviewed by me: (See diagnostic results section) The following test were independently interpreted by me: N/A I reviewed and agreed with the following test results read by other providers: N/A I reviewed the following notes from the pt's past medical encounters: N/A Additional information was gathered from interviewing the following independent historians: N/A Discussion of management or test interpretation with external physician/other qualified health property caretaker: Dr. Echeverria, ED Physician [facility] @ 2037 Addressed an acute or chronic illness that poses a threat to life or bodily function: Sepsis, atrial fibrillation with RVR Decision regarding hospitalization or escalation of hospital level of care: Risk and benefits of admission for further treatment of patient's condition was considered. Due to patient's current clinical condition, high risk of decline and poor outcome if discharged and need for further inpatient management and monitoring, patient will be admitted to the hospital. Drug therapy requiring intensive monitoring for toxicity: IV Cardizem Parenteral controlled substances: N/A Decision regarding elective major surgery with identified patient or procedure risk factors: N/A Decision regarding emergency major surgery: N/A Decision not to resuscitate or to de-escalate care because of poor prognosis: N/A Diagnosis or treatment significantly limited by social determinants of health: N/A Critical Care Note Critical Care Time?: No Stability Stability form required: No I personally scribed for NARINDER MARTINEZ MD ([email or web address]) on 12/05/24 at 00:33. Electronically submitted by Brenda Wang ([email or web address]). I personally scribed for NARINDER MARTINEZ MD ([email or web address]) on 12/05/24 at 01:17. Electronically submitted by Brenda Wang ([email or web address]). NARINDER MARTINEZ MD Dec 05, 2024 00:33
[2024-12-05 01:00] VITALS: RESP 20; O2SAT 96
[2024-12-05] MEDS ORDERED: dilTIAZem 125mg/125ml BAG KIT 100 ML IV SCH (01:15)
--- NOTE | 2024-12-05 01:26 | DVH ---
CHEST RADIOGRAPH Indication: Sepsis Technique: Single frontal view of the chest was obtained Comparison: XY CHEST PORTABLE on DOS: 06/27/23, XY CHEST PORTABLE on DOS: 06/12/23 Findings/ IMPRESSION: Left lower lung zone opacification concerning for pneumonia. Small left-sided pleural effusion. Mil d cardiomegaly. Recommend follow-up until resolution
[2024-12-05 01:35] LABS: Alanine Aminotransferase 15 U/L (7-40); Albumin 3.9 g/dL (3.2-4.8); Alkaline Phosphatase 72 U/L (46-116); Anion Gap 14 (5-15); Aspartate Aminotransferase 37 U/L (13-40); BUN/Creatinine Ratio 25.5 (10.0-20.0); Bilirubin, Total 0.3 mg/dL (0.2-1.0); Calcium 9.6 mg/dL (8.7-10.4); Carbon Dioxide 20 mmol/L (20-31); Chloride 103 mmol/L (98-107); Sodium 137 mmol/L (136-145); Total Protein 6.4 g/dL (5.7-8.2)
[2024-12-05 01:39] LABS: Blood Urea Nitrogen 36 mg/dL (9-23); Glucose 109 mg/dL (74-106)
[2024-12-05 01:40] LABS: Lactic Acid w/Reflex 5.4 mmol/L (0.4-2.0)
[2024-12-05] MEDS ORDERED: VANCOMYCIN PER PHARMACY 0 MG IV SCH (02:00)
[2024-12-05 02:11] LABS: Hemoglobin 8.9 g/dL (12.2-16.2); White Blood Cell 14.1 10^3/uL (4.4-10.8)
[2024-12-05 02:13] LABS: Mean Corpuscular Hemoglobin 23.2 pg (28.0-32.0); Mean Corpuscular Hgb Conc. 30.8 g/dL (32.0-36.0); Mean Corpuscular Volume 75.2 fL (80.0-100.0); Platelet Count (auto) 300 10^3/uL (140-450); Red Blood Cells 3.86 10^6/uL (4.0-5.20)
[2024-12-05] MEDS: SODIUM CHLORIDE 0.9% 500 ML IV ONE (02:16)
[2024-12-05 02:19] LABS: Basophils % (manual) 0 (0.0-2.0); Blast Cells 0; Eosinophils % (manual) 0 (0-7); Metamyelocytes % 0; Myelocytes % 0; Promyelocytes % 0; Reactive Lymphocytes 0
[2024-12-05] MEDS: PANTOPRAZOLE 40 MG/10 ML VIAL INJ IV ONE (02:23)
--- NOTE | 2024-12-05 02:27 | DVHHPRES ---
History of Present Illness Resident Creating Document: FARRAH SUH Reason for Visit: pneumonia History of Present Illness Patient is a 84-year-old female transferred from [facility]. Patient is a poor history. Patient presented to [facility] due to left sided pleuritic chest pain. At [facility] she was noted to be Afib RVR and septic. Patient was stabilized and transferred to [facility] on Cardizem. At [facility], patient continued to have low blood pressure. She denied nausea, vomiting, fever or cough, but has leukocytosis and elevated lactic acid. Chest x-ray showed Left lower lung zone opacification concerning for pneumonia. Small left-sided pleural effusion. Given her recent hospital admission(06/2024), antibiotics switched to Cefepime and vancomycin, fluid resuscitation, and Diltazem stopped. Recent Echo on Nov 12 shows EF 60%. PMHx: hypertension, hyperlipidemia, coronary artery disease, peripheral vascular disease, chronic smoker, History of vascular bypass and femoral artery, history of GERD, hypothyroidism, recent GI bleed for which Plavix was discontinued PShx: Stent placement x3, most recent in 2022, Femoral bypass, AV fistula repair. FHx: Noncontributory Social Hx: lives at home with daughter and grandson Past Medical History See HPI Family History see HPI Review of Systems Constitutional: Yes: Chills Eyes: No: Pain, Vision change, Conjunctivae inflammation, Eyelid inflammation, Other, Redness ENT: Other (difficulty hearing); No: Ear pain, Ear discharge, Nose pain, Nose discharge, Nose congestion, Mouth pain, Mouth swelling, Throat pain, Throat swelling Respiratory: No: Cough, Dry, Shortness of breath, SOB with excertion, Wheezing, Hemoptysis, Pleuritic Pain, Sputum, Wheezing, Other Gastrointestinal: No: Nausea, Vomiting, Abdominal Pain, Diarrhea, Constipation, Melena, Hematochezia, Other Genitourinary: No Dysuria, No Frequency, No Incontinence, No Hematuria, No Retention, No Other Musculoskeletal: back pain Skin: No: Rash, Lesions, Jaundice, Bruising, Other Neurological: Weakness Allergies: Coded Allergies: No Known Drug Allergy (Verified Allergy, Unknown, 09/28/23) Medications Current Medications Medications Dose Ordered Sig/Felipe Route Start Time Stop Time Status Last Admin Dose Admin Cefepime HCl 50 ml @ 12.5 mls/hr Q12HR IV 12/05/24 10:00 UNV Vancomycin HCl 0 ml @ 0 mls/hr UD IV 12/05/24 02:00 UNV Lactated Ringer's 500 ml @ 125 mls/hr Q4H IV 12/05/24 02:00 UNV Morphine Sulfate 1 mg Q6HP PRN IV 12/05/24 02:15 UNV Enoxaparin Sodium 40 mg DAILY SC 12/05/24 10:00 UNV Pantoprazole Sodium 40 mg BID IV 12/05/24 10:00 UNV Exam Vital Signs Vital Signs Date Time Temp Pulse Resp B/P (MAP) Pulse Ox O2 Delivery O2 Flow Rate FiO2 12/05/24 01:00 82 12/05/24 00:49 98.3 16 105/45 (65) 30 98.3 Exam General Appearance: Alert, Oriented X3, Cooperative, Moderate acute distress, cachetic HEENT: Atraumatic, PERRLA, EOMI, Mucous membrane moist/pink Respiratory: Reduced air entry left lung Cardiovascular: Irregular irregular rate, No murmurs, no chest wall tenderness Abdominal: NO distention, no tenderness, bowel sounds present, no scars noted Extremities: Cold upper and lower, No clubbing, No cyanosis, No edema, Normal pulses, No tenderness/swelling Skin: No rashes, No breakdown, No significant lesion Neuro: Normal speech, Strength at 5/5 X4 ext, Normal tone, Sensation intact, Cranial nerves 3-12 NL, Reflexes 2+ Psych/Mental Status: Mental status NL, Mood NL Labs/Xrays Labs Test 12/05/24 00:35 Range/Units Sodium Level 137 136-145 mmol/L Potassium Level 4.0 3.5-5.1 mmol/L Chloride Level 103 98-107 mmol/L Carbon Dioxide Level 20 20-31 mmol/L Anion Gap 14 5-15 Blood Urea Nitrogen 36 H 9-23 mg/dL Creatinine 1.41 H 0.550-1.02 mg/dL Glomerular Filtration Rate Calc 37 >90 mL/min BUN/Creatinine Ratio 25.5 H 10.0-20.0 Serum Glucose 109 H 74-106 mg/dL Lactic Acid Level 5.4 *H 0.4-2.0 mmol/L Calcium Level 9.6 8.7-10.4 mg/dL Total Bilirubin 0.3 0.2-1.0 mg/dL Aspartate Amino Transferase (AST) 37 13-40 U/L Alanine Aminotransferase (ALT) 15 7-40 U/L Alkaline Phosphatase 72 46-116 U/L Troponin I High Sensitivity 148 *H </=34 ng/L B-Type Natriuretic Peptide 651.16 0-100 pg/mL Total Protein 6.4 5.7-8.2 g/dL Albumin 3.9 3.2-4.8 g/dL Assessment/Plan Assessment/Plan Assessment Septic shock Sepsis due to pneumonia Pneumonia AFib with RVR Cachexia, BMI: 18.9 CKD Severe malnutrition, NSTEMI type 2 Microcytic anemia Recent GI bleed for which Plavix was discontinued (06/2024) History of hypertension Hyperlipidemia Coronary artery disease S/P PCI X3 Peripheral vascular disease, History of vascular bypass and femoral artery History of GERD Hypothyroidism Plan Antibiotic: Cefepime and Vancomycin IV fluid bolus, judicious use of fluid Iron panel Pain control: Morphine and Tylenol Lovenox therapeutic Continue home medications Monitor closely PUD prophylaxis: pantoprazole Diet: clear liquid diet, ensure as she can tolerate Goal of care discussed for more than 30 minute, full code Case and plan discussed with Dr. Judd Plan discussed with: Patient My Orders Orders - FARRAH SUH Procedure Category Date Status Time Complete Blood Count LAB 12/05/24 In Process 01:[address] 12/05/24 Taken 01:55 Cefepime 1gm/ 50ml PHA 12/05/24 Logged (Maxipime 1gm/50ml) 02:00 Cefepime 1gm/ 50ml PHA 12/05/24 Logged (Maxipime 1gm/50ml) 10:00 Vancomycin Per PHA 12/05/24 Logged Pharmacy 02:00 Lactated Ringer's PHA 12/05/24 Logged 02:00 Acetaminophen Tablet PHA 12/05/24 Logged (Tylenol Tablet) 02:15 Morphine Sulfate PHA 12/05/24 Logged Injection 02:15 Morphine Sulfate PHA 12/05/24 Logged Injection 02:15 Date of Service: Dec 05, 2024 Billing Provider: DAISY JUDD MD Common Visit Codes: [id number] INP/OBS CARE (HIGH) Secondary Visit Codes: [id number] CARE PLAN 30 MINUTES FARRAH SUH RESIDENT Dec 05, 2024 02:27 DAISY JUDD MD Dec 05, 2024 11:30
[2024-12-05 02:41] LABS: % Iron Saturation 3.1 % (15-50)
[2024-12-05] MEDS: CEFEPIME 1GM/ 50ML 50 ML IV ONE (02:55)
[2024-12-05] MEDS: MORPHINE SULFATE INJ 2 MG/ml SYRG IM ONE (02:56)
[2024-12-05] MEDS: ACETAMINOPHEN 325 MG TAB PO ONE (02:57)
[2024-12-05 02:59] LABS: Ferritin 56.2 ng/mL (10-291); Folate (Folic Acid) 6.04 ng/mL (>5.38)
[2024-12-05] MEDS ORDERED: VANCOMYCIN 1GM/250ML KIT 250 ML IV ONE (03:00)
[2024-12-05] MEDS ORDERED: NITROGLYCERIN 0.4 MG SL TAB SL PRN (03:15)
--- NOTE | 2024-12-05 03:22 | DVH ---
Procedure: CT CHEST WITHOUT CONTRAST Reason for study/Clinical History: RULE OUT PNEUMONIA Comparison Study: Chest x-ray 12/05/2024 Exam Date: 12/05/2024 02:07 AM TECHNIQUE: Multidetector CT of the chest was performed from the lung apices to the upper abdomen with out the use of intravenous contract. Axial, coronal and sagittal multiplanar reformats were performed . Radiation optimization: All CT scans at this facility use at least one of these dose optimization t echniques: automated exposure control mA and/or kV adjustment per patient size (includes targeted ex ams where dose is matched to clinical indication) or iterative reconstruction. Radiation Dose Information: CT Dose: CTDI volume is 5.3 mGy. Dose-length product is 209.3 mGy*cm The dose indicators for CT are the volume Computed Tomography (CT) Dose Index (CTDIvol) and the Dose Length Product (DLP), and are measured in units of mGy and mGy-cm, respectively. These indicators are not patient dose, but values generated from the CT scanner acquisition factors. The report includes radiation exposure data for exposures received during this examination. FINDINGS: Proximal airway appears patent. There is dense consolidation and near complete opacification of the l ower left upper lobe and left lower lobe. Small bilateral pleural effusions. Prominent mediastinal ly mph nodes. There is biatrial enlargement more pronounced on the right. Severe coronary artery calcifi cations. The esophagus is mildly distended with debris in the distal portion. Visualized portions of the upper abdomen appear unremarkable. No suspicious osseous lesion. IMPRESSION: 1. Dense consolidation and near complete opacification of the inferior left upper lobe and entire lef t lower lobe, favors infectious process 2. Given mildly dilated esophagus with debris distally, findings may be on the basis of aspiration 3. Small bilateral pleural effusions.
[2024-12-05 03:36] LABS: Band Neutrophils % (manual) 22; Lymphocytes % (manual) 6 (10.0-50.0); Monocytes % (manual) 5 (0-12)
[2024-12-05 03:37] LABS: Platelet Estimate Adequate
[2024-12-05] MEDS: DOXYCYCLINE 100MG/100ML 100 ML IV ONE (03:55)
[2024-12-05 04:30] LABS: COVID19 ANTIGEN SOFIA FIA NEGATIVE (NEGATIVE); Rapid Influenza A Negative (Negative); Rapid Influenza B Negative (Negative)
[2024-12-05] MEDS: LACTATED RINGER'S 500 ML IV SCH (05:00)
[2024-12-05 07:36] LABS: Lactic Acid w/Reflex 3.6 mmol/L (0.4-2.0)
[2024-12-05] MEDS: Ensure HIGH Protein Chocolate 8oz Bottle PO SCH (08:00)
[2024-12-05 08:40] VITALS: PULSE 107; RESP 21; O2SAT 93
[2024-12-05] MEDS: ENOXAPARIN SOD 100 MG/1 ML SYRINGE SC SCH (09:50)
[2024-12-05] MEDS: CEFEPIME 1GM/ 50ML 50 ML IV SCH (09:50)
[2024-12-05] MEDS: PANTOPRAZOLE 40 MG/10 ML VIAL INJ IV SCH (09:50)
[2024-12-05] MEDS: METOPROLOL TARTRATE 1MG/1ML-5ML VIAL IV ONE (10:19)
[2024-12-05 11:17] LABS: Hematocrit 26.3 % (36.0-46.0); Hemoglobin 8.4 g/dL (12.2-16.2)
[2024-12-05 11:32] LABS: Alanine Aminotransferase 17 U/L (7-40); Albumin 3.7 g/dL (3.2-4.8); Alkaline Phosphatase 77 U/L (46-116); Anion Gap 11 (5-15); Calcium 9.7 mg/dL (8.7-10.4); Carbon Dioxide 23 mmol/L (20-31); Chloride 104 mmol/L (98-107); Glucose 100 mg/dL (74-106); Potassium 4.1 mmol/L (3.5-5.1); Sodium 138 mmol/L (136-145); Total Protein 6.2 g/dL (5.7-8.2)
[2024-12-05 11:34] LABS: Bilirubin, Total 0.3 mg/dL (0.2-1.0)
[2024-12-05 11:35] LABS: BUN/Creatinine Ratio 27.8 (10.0-20.0)
[2024-12-05 11:38] LABS: Aspartate Aminotransferase 42 U/L (13-40); Blood Urea Nitrogen 40 mg/dL (9-23)
[2024-12-05 11:49] LABS: INR 1.19 (0.9-1.15); Prothrombin Time 12.4 sec (9.3-11.8)
[2024-12-05 12:08] LABS: Lactic Acid w/Reflex 2.8 mmol/L (0.4-2.0)
--- NOTE | 2024-12-05 13:27 | ECG ---
[facility] Test Date: 2024-12-05 Test Time: 00:44:15 Pat Name: JAVIER KOHLI Department: ER Room: 0265D Gender: F Credit Underwriter: ER : 1940 Requested By: NARINDER MARTINEZ Order Number: [id number] Reading MD: Reuben Alanis Measurements Intervals [place] Rate: 109 P: 0 DC: 0 QRS: 84 QRSD: 103 T: 85 QT: 388 QTc: 523 Interpretive Statements Atrial fibrillation Borderline right axis deviation Nonspecific T abnormalities, anterior leads Prolonged QT interval Electronically Signed On 12-07-2024 19:05:31 PDT by Reuben Alanis Please click the below link to view image of tracing.
[2024-12-05] MEDS: AMIODARONE BOLUS KIT 100 ML IV ONE (13:35)
[2024-12-05] MEDS: AMIODARONE 360mg/200mL PREMIX 200 ML IV ONE ×2 (13:56→20:00)
[2024-12-05] MEDS: ERGOCALCIFEROL 50,000 UNIT(1.25MG) CAP PO SCH (14:34)
[2024-12-05] MEDS: IRON SUCROSE COMPLEX 110 ML IV SCH (14:34)
[2024-12-05] MEDS: MORPHINE SULFATE INJ 2 MG/ml SYRG IV PRN (14:58)
[2024-12-05] MEDS: DOXYCYCLINE 100MG/100ML 100 ML IV SCH (17:45)
--- NOTE | 2024-12-05 20:30 | DVHPNRES ---
Progress Note Date Seen: Dec 05, 2024 Resident Creating Document: MELIZA GUZMÁN RESIDENT Medical Necessity Reason Pt with a Central, PICC or Fol: Yes The following are medically ne: Issa Catheter Subjective Review of Systems This is a 84-year-old female transferred from [facility]. Patient is a poor historian. She presented to [place] due to left sided pleuritic chest pain. PMHx: hypertension, hyperlipidemia, coronary artery disease, peripheral vascular disease, chronic smoker, History of vascular bypass and femoral artery, history of GERD, hypothyroidism, recent GI bleed for which Plavix was discontinued PShx: Stent placement x3, most recent in 2022, Femoral bypass, AV fistula repair. FHx: Noncontributory Social Hx: lives at home with daughter and grandson At [facility] she was noted to be Afib RVR and septic shock. Patient was stabilized and transferred to [facility] on Cardizem drip. At [facility], patient continued to have low blood pressure. She denied nausea, vomiting, fever or cough, but has leukocytosis and elevated lactic acid. Chest x-ray showed Left lower lung zone opacification concerning for pneumonia. Small left-sided pleural effusion. She was given fluid resuscitation, and Diltazem stopped. Recent Echo on Nov 12 shows EF 60%. On my assessment, patient only complain of shortness of breath. We had a discussion with her daughter and grandson, they stated that the patient began having left-sided chest pain most prominent on deep inspiration, she was also having cough, chills, having low appetite, and they noted that she was having altered mental status. In the ED, patient was placed on board spectrum antibiotics, she was given IV fluids, blood pressure responded to the fluids. Objective vital signs Vital Sign Date Time Temp Pulse Resp B/P (MAP) Pulse Ox O2 Delivery O2 Flow Rate FiO2 12/05/24 19:30 98.1 109 21 126/60 (82) 94 98.1 12/05/24 08:40 Room Air* 0 21 Total Intake and Output 12/04/24 12/04/24 12/05/24 15:00 23:00 07:00 Intake Total 387.5 ml Balance 387.5 ml medications Current Medications Medications Dose Ordered Sig/Felipe Route Start Time Stop Time Status Last Admin Dose Admin Lactated Ringer's 500 ml @ 125 mls/hr Q4H IV 12/05/24 02:00 12/05/24 18:00 125 MLS/HR Morphine Sulfate 1 mg Q6HP PRN IV 12/05/24 02:15 12/05/24 14:58 1 MG Enoxaparin Sodium 40 mg DAILY SC 12/05/24 10:00 12/05/24 09:50 40 MG Pantoprazole Sodium 40 mg BID IV 12/05/24 10:00 12/05/24 09:50 40 MG Enteral Nutritional Formula 240 ml BIDWM PO 12/05/24 08:00 Nitroglycerin 0.4 mg Q5MINP PRN SL 12/05/24 03:15 Doxycycline Hyclate 100 ml @ 50 mls/hr Q12H IV 12/05/24 16:00 12/05/24 17:45 50 MLS/HR Iron Sucrose 110 ml @ 110 mls/hr DAILY@1200 IV 12/05/24 12:00 12/09/24 12:59 12/05/24 14:34 110 MLS/HR Piperacillin Sod/ Tazobactam Sod 100 ml @ 25 mls/hr Q12HR IV 12/05/24 22:00 Ergocalciferol 50,000 unit Q7D PO 12/05/24 11:00 12/05/24 14:34 50,000 UNIT Enoxaparin Sodium 30 mg DAILY SC 12/06/24 10:00 Examination General: Awake, A&Ox2 in moderate distress due to SOB HEENT: Head is normocephalic and atraumatic. Pupils are equal, round, and reactive to light. Neck: Supple with no cervical lymphadenopathy Heart: iregular rate without murmur, rub, or gallop. Lungs: diffuse crackles Abdomen: No external sign of injury. Bowel sounds are present. Abdomen is soft, nontender. No rebound, no guarding, no rigidity. There are no palpable masses. There is no flank pain on exam. Extremities: Strong peripheral pulses. There is no clubbing, no cyanosis, and no edema. Skin: No rash. Neurologic: Cranial nerves II-XII intact without motor, sensory, deficits. laboratory and microbiology Laboratory Tests 12/05/24 06:40 12/05/24 00:35 Test 12/05/24 06:40 Range/Units Serum Glucose 100 74-106 mg/dL Microbiology Date/Time Source Procedure Growth Status 12/05/24 02:35 Nose MRSA Screen - Final Complete Labs and/or images reviewed: Labs reviewed by me, Image(s) reviewed by me Problem List/Assessment/Plan Problem List/Assessment/Plan #Sepsis due to pneumonia gram (+) vs gram (-), vs atypicals #Lactic acidosis #AFib with RVR #MARQUISE due to VMN #NSTEMI type 2 #Microcytic anemia #Recent GI bleed for which Plavix was discontinued (06/2024) #History of hypertension #Hyperlipidemia #Coronary artery disease S/P PCI X3 #Peripheral vascular disease, History of vascular bypass and femoral artery #History of GERD #Hypothyroidism #Cachexia, BMI: 18.9 #Current smoker #Vitamin D deficiency Plan: Continue Zosyn and doxycycline IV IV fluid given Therapeutic Lovenox Started amiodarone drip with bolus Started vitamin D 50,000 qweek Ordered am labs, CXR pending urine cx, blood cx, sputum cx PUD prophylaxis: pantoprazole Goal of care discussed for more than 30 minute, full code Case and plan discussed with Dr. Judd critical care time 45 mins Plan discussed with: Patient, Daughter, Other (Grandson, RN) My Orders My Orders Orders - MELIZA GUZMÁN Procedure Category Date Status Time Insert Issa Catheter ELIA 12/05/24 In Process 10:51 Piperacillin-Tazob PHA 12/05/24 In Process 3.375gm (Zosyn 3.375g 22:00 Ergocalciferol PHA 12/05/24 In Process (Vitamin D 50,000 11:00 Enoxaparin Sodium PHA 12/06/24 In Process (Lovenox) 10:00 Complete Blood Count LAB 12/06/24 Verified 04:00 Comprehensive LAB 12/06/24 Verified Metabolic Panel 04:00 Magnesium LAB 12/06/24 Verified 04:00 Lactic Acid W/ Reflex LAB 12/06/24 Verified Order 04:00 Date of Service: Dec 05, 2024 Billing Provider: DAISY JUDD MD Common Visit Codes: [id number] CARE 30-74 MIN MELIZA GUZMÁN RESIDENT Dec 05, 2024 20:30 DAISY JUDD MD Dec 06, 2024 12:31
[2024-12-05 20:53] LABS: Urine Bacteria None Seen /hpf (None Seen)
--- NOTE | 2024-12-05 21:32 | DVH ---
CHEST RADIOGRAPH Indication: REASSESS Technique: Single frontal view of the chest was obtained COMPARISON: XY CHEST XRAY 1 VIEW on DOS: 12/05/24, XY CHEST PORTABLE on DOS: 06/27/23, XY CHEST PORTABL E on DOS: 06/12/23 FINDINGS: Lines and Tubes: None Lungs: Unchanged mid lung airspace disease Pleura: Small left pleural effusion. No pneumothorax. Cardiomediastinal contours: Unremarkable Bones: Unremarkable IMPRESSION: Unchanged left mid and lower lung airspace disease and small left pleural effusion.
[2024-12-05 21:46] LABS: Mean Corpuscular Volume 71.3 fL (80.0-100.0)
[2024-12-05 21:47] LABS: Hematocrit 28.4 % (36.0-46.0); Hemoglobin 9.1 g/dL (12.2-16.2); Mean Corpuscular Hemoglobin 22.8 pg (28.0-32.0); Platelet Count (auto) 250 10^3/uL (140-450); Red Blood Cells 3.99 10^6/uL (4.0-5.20); Red Cell Distribution Width 18.9 % (11.8-14.3); White Blood Cell 14.9 10^3/uL (4.4-10.8)
[2024-12-05 21:48] LABS: Cocaine Screen, Urine Neg (NEGATIVE); Opiate Scree,Urine Neg (NEGATIVE)
[2024-12-05 21:49] LABS: Urine Blood 1+ /uL (Negative); Urine Clarity Ex.Turbid (Clear); Urine Hyaline Cast MANY /lpf (0 - 2); Urine Protein, UAD 1+ (Negative); Urine Specific Gravity 1.019 (1.001-1.035); Urine Squamous Epithelial Cell FEW /hpf (<5); Urine Urobilinogen Normal (Negative); Urine WBC 694 /HPF (0-5); Urine WBC Clumps PRESENT /hpf (None Seen); Urine pH 5.5 (5.0-9.0)
[2024-12-05 21:49] LABS: Basophils % (manual) 0 (0.0-2.0); Blast Cells 0; Eosinophils % (manual) 0 (0-7); Metamyelocytes % 0; Myelocytes % 0; Promyelocytes % 0; Reactive Lymphocytes 0
[2024-12-05 21:52] LABS: Urine Color DARK YELLOW (Yellow)
[2024-12-05] MEDS: PIPERACILLIN-TAZOB 3.375GM 100 ML IV SCH (21:52)
[2024-12-05 22:12] LABS: Amphetamine Screen, Urine Neg (NEGATIVE); Barbiturate Scree,Urine Neg (NEGATIVE); Benzodiazephine Screen, Urine Neg (NEGATIVE); Cannabinoid Screen, Urine Neg (NEGATIVE); Phencyclidine Screen, Urine Neg (NEGATIVE)
[2024-12-05 22:30] LABS: Band Neutrophils % (manual) 34; Hypochromia Moderate; Large Platelets FEW; Lymphocytes % (manual) 2 (10.0-50.0); Monocytes % (manual) 6 (0-12); Platelet Estimate Adequate
[2024-12-05 23:00] VITALS: BP 137/57; PULSE 130; RESP 26; TEMP 98.6; O2SAT 89
[2024-12-05 23:35] VITALS: BP 137/57; PULSE 130; RESP 26; TEMP 98.6; O2SAT 89; O2SAT 90
[2024-12-06] VITALS (48 sets, daily range): BP systolic 99–137; BP diastolic 45–74; PULSE 110–139; RESP 16–30; TEMP 97.8–98.6; O2SAT 91–99
[2024-12-06] MEDS ORDERED: AMIODARONE 360mg/200mL PREMIX 200 ML IV SCH (01:45)
[2024-12-06] MEDS: methylPREDNISolone SOD SUCC 40 MG/ML VL IV ONE (03:37)
[2024-12-06 05:11] LABS: Hematocrit 28.7 % (36.0-46.0); Mean Corpuscular Hemoglobin 22.3 pg (28.0-32.0); Mean Corpuscular Hgb Conc. 31.3 g/dL (32.0-36.0); Mean Corpuscular Volume 71.3 fL (80.0-100.0); Platelet Count (auto) 253 10^3/uL (140-450); Red Blood Cells 4.03 10^6/uL (4.0-5.20); Red Cell Distribution Width 18.5 % (11.8-14.3); White Blood Cell 13.3 10^3/uL (4.4-10.8)
[2024-12-06 05:13] LABS: Basophils % (manual) 0 (0.0-2.0); Blast Cells 0; Eosinophils % (manual) 0 (0-7); Metamyelocytes % 0; Myelocytes % 0; Promyelocytes % 0; Reactive Lymphocytes 0
[2024-12-06 05:31] LABS: Alanine Aminotransferase 20 U/L (7-40); Albumin 3.6 g/dL (3.2-4.8); Alkaline Phosphatase 79 U/L (46-116); Anion Gap 10 (5-15); Aspartate Aminotransferase 38 U/L (13-40); BUN/Creatinine Ratio 31.4 (10.0-20.0); Bilirubin, Total 0.4 mg/dL (0.2-1.0); Calcium 9.5 mg/dL (8.7-10.4); Carbon Dioxide 23 mmol/L (20-31); Chloride 104 mmol/L (98-107); Potassium 3.7 mmol/L (3.5-5.1); Sodium 137 mmol/L (136-145); Total Protein 6.1 g/dL (5.7-8.2)
[2024-12-06 05:34] LABS: Blood Urea Nitrogen 38 mg/dL (9-23); Glucose 107 mg/dL (74-106)
--- NOTE | 2024-12-06 05:52 | DVH ---
CHEST RADIOGRAPH Indication: sob Technique: Single frontal view of the chest was obtained COMPARISON: XY CHEST XRAY 1 VIEW on DOS: 12/05/24, XY CHEST XRAY 1 VIEW on DOS: 12/05/24, XY CHEST PORT ABLE on DOS: 06/27/23, XY CHEST PORTABLE on DOS: 06/12/23, XY CHEST XRAY 1 VIEW on DOS: 12/05/24 FINDINGS: Lines and Tubes: None Lungs: Unchanged mid lung airspace disease Pleura: Small left pleural effusion. No pneumothorax. Cardiomediastinal contours: Unremarkable Bones: Unremarkable IMPRESSION: Unchanged left mid and lower lung airspace disease and small left pleural effusion.
[2024-12-06 06:31] LABS: Band Neutrophils % (manual) 14; Hypochromia Slight; Lymphocytes % (manual) 3 (10.0-50.0); Monocytes % (manual) 5 (0-12); Platelet Estimate Adequate
[2024-12-06] MEDS: LEVALBUTEROL HCL 1.25 MG/3 ML NEB NEB SCH (06:31)
[2024-12-06] MEDS: IPRATROPIUM BROM 0.5 MG/2.5ML INH SOL NEB SCH (06:31)
--- NOTE | 2024-12-06 07:38 | DVHPNRES ---
Progress Note Date Seen: Dec 06, 2024 Resident Creating Document: MELIZA GUZMÁN RESIDENT Medical Necessity Reason Pt with a Central, PICC or Fol: Yes The following are medically ne: Issa Catheter Subjective Review of Systems On my assessment, patient only complain of shortness of breath. He is currently on Oxymizer 12 L saturating at 91%. She is in atrial fibrillation with RVR less than 130s. Objective vital signs Vital Sign Date Time Temp Pulse Resp B/P (MAP) Pulse Ox O2 Delivery O2 Flow Rate FiO2 12/06/24 06:53 123 20 117/61 12/06/24 06:38 91 Oxymizer 12 N/A 12/06/24 04:00 97.8 97.8 Total Intake and Output 12/05/24 12/05/24 12/06/24 15:00 23:00 07:00 Intake Total 150 ml 100 ml 250 ml Output Total 1000 ml Balance 150 ml 100 ml -750 ml medications Current Medications Medications Dose Ordered Sig/Felipe Route Start Time Stop Time Status Last Admin Dose Admin Morphine Sulfate 1 mg Q6HP PRN IV 12/05/24 02:15 12/06/24 06:23 1 MG Enoxaparin Sodium 40 mg DAILY SC 12/05/24 10:00 12/05/24 09:50 40 MG Pantoprazole Sodium 40 mg BID IV 12/05/24 10:00 12/05/24 21:52 40 MG Enteral Nutritional Formula 240 ml BIDWM PO 12/05/24 08:00 Nitroglycerin 0.4 mg Q5MINP PRN SL 12/05/24 03:15 Doxycycline Hyclate 100 ml @ 50 mls/hr Q12H IV 12/05/24 16:00 12/06/24 03:39 50 MLS/HR Iron Sucrose 110 ml @ 110 mls/hr DAILY@1200 IV 12/05/24 12:00 12/09/24 12:59 12/05/24 14:34 110 MLS/HR Piperacillin Sod/ Tazobactam Sod 100 ml @ 25 mls/hr Q12HR IV 12/05/24 22:00 12/05/24 21:52 25 MLS/HR Ergocalciferol 50,000 unit Q7D PO 12/05/24 11:00 12/05/24 14:34 50,000 UNIT Enoxaparin Sodium 30 mg DAILY SC 12/06/24 10:00 Levalbuterol HCl 0.625 mg Q4HWA [facility] 12/06/24 06:00 12/06/24 06:31 0.625 MG Ipratropium [place] 0.5 mg Q4HWA [facility] 12/06/24 06:00 12/06/24 06:31 0.5 MG Methylprednisolone Sodium Succinate 40 mg BID IV 12/06/24 10:00 Examination General: Awake, A&Ox2 in moderate distress due to SOB HEENT: Head is normocephalic and atraumatic. Pupils are equal, round, and reactive to light. Neck: Supple with no cervical lymphadenopathy Heart: iregular rate without murmur, rub, or gallop. Lungs: diffuse crackles Abdomen: No external sign of injury. Bowel sounds are present. Abdomen is soft, nontender. No rebound, no guarding, no rigidity. There are no palpable masses. There is no flank pain on exam. Extremities: Strong peripheral pulses. There is no clubbing, no cyanosis, and no edema. Skin: No rash. Neurologic: Cranial nerves II-XII intact without motor, sensory, deficits. laboratory and microbiology Laboratory Tests 12/06/24 04:50 Test 12/06/24 04:50 Range/Units Serum Glucose 107 H 74-106 mg/dL Microbiology Date/Time Source Procedure Growth Status 12/05/24 02:35 Nose MRSA Screen - Final Complete 12/05/24 00:35 Blood Blood Culture - Preliminary NO GROWTH AFTER 24 HOURS OF INCUBATION. Resulted Labs and/or images reviewed: Labs reviewed by me, Image(s) reviewed by me Problem List/Assessment/Plan Problem List/Assessment/Plan #Sepsis due to pneumonia gram (+) vs gram (-), vs atypicals #Pleural effusion #Lactic acidosis #AFib with RVR #MARQUISE due to VMN #NSTEMI type 2 #Microcytic anemia # COPD exacerbation #Recent GI bleed for which Plavix was discontinued (06/2024) #History of hypertension #Hyperlipidemia #Coronary artery disease S/P PCI X3 #Peripheral vascular disease, History of vascular bypass and femoral artery #History of GERD #Hypothyroidism #Cachexia, BMI: 18.9 #Current smoker #Vitamin D deficiency Plan: Continue Zosyn and doxycycline IV Therapeutic Lovenox Continue vitamin D 50,000 qweek pending urine cx, blood cx, sputum cx lasix 40mg iv qd ordered chest us and thoracentesis metoprolol 5mg iv given 2 times start metoprolol 25mg po bid PUD prophylaxis: pantoprazole Goal of care discussed for more than 30 minute, full code Case and plan discussed with Dr. Judd critical care time 45 mins Plan discussed with: Patient, Other (RN) My Orders My Orders Orders - MELIZA GUZMÁN Procedure Category Date Status Time Insert Issa Catheter ELIA 12/05/24 In Process 10:51 Piperacillin-Tazob PHA 12/05/24 In Process 3.375gm (Zosyn 3.375g 22:00 Ergocalciferol PHA 12/05/24 In Process (Vitamin D 50,000 11:00 Enoxaparin Sodium PHA 12/06/24 In Process (Lovenox) 10:00 Chest Portable XY 12/06/24 Resulted 04:00 Communication Order ORDERS 12/05/24 Transmitted 20:25 Furosemide Injection PHA 12/06/24 Logged (Lasix Injection) 07:30 Chest Ultrasound US 12/06/24 Logged 07:28 Date of Service: Dec 06, 2024 Billing Provider: DAISY JUDD MD Common Visit Codes: [id number] CARE 30-74 MIN MELIZA GUZMÁN RESIDENT Dec 06, 2024 07:38 DAISY JUDD MD Dec 06, 2024 17:24
--- NOTE | 2024-12-06 08:19 | DVH ---
US CHEST ULTRASOUND, HISTORY: pleural eff COMPARISON(S): None TECHNICAL DATA: Transverse and longitudinal images are obtained of the chest. FINDING: IMPRESSION(S): Mild to moderate left pleural effusion. Small right pleural effusion.
[2024-12-06] MEDS: METOPROLOL TARTRATE 1MG/1ML-5ML VIAL IV ONE ×4 (08:31→10:24)
[2024-12-06] MEDS: FUROSEMIDE 40 MG/4 ML VIAL IV ONE (08:49)
[2024-12-06 09:54] LABS: Base Excess -3.9 mmol/L (-2.0-3.0)
[2024-12-06] MEDS ORDERED: methylPREDNISolone SOD SUCC 40 MG/ML VL IV SCH (10:00)
[2024-12-06] MEDS ORDERED: ENOXAPARIN SOD 30 MG/0.3 ML SYRINGE SC SCH (10:00)
[2024-12-06] MEDS: HYDROCORTISONE SOD SUCC 100 MG/2ML INJ VIAL IV ONE (12:46)
--- NOTE | 2024-12-06 13:07 | DVH ---
INDICATION: THORACENTESIS TECHNIQUE: Single frontal view of the chest was obtained COMPARISON: XY CHEST PORTABLE on DOS: 12/06/24, XY CHEST XRAY 1 VIEW on DOS: 12/05/24, XY CHEST XRAY 1 VIEW on DOS: 12/05/24, XY CHEST PORTABLE on DOS: 06/27/23, XY CHEST PORTABLE on DOS: 06/12/23, XY CHEST PORTABLE on DOS: 12/06/24 FINDINGS: Lines and Tubes: None Lungs: Unchanged mid lung airspace disease Pleura: Small left pleural effusion. No pneumothorax. Cardiomediastinal contours: Unremarkable Bones: Unremarkable IMPRESSION: Unchanged left mid and lower lung airspace disease and small left pleural effusion.
--- NOTE | 2024-12-06 13:19 | DVH ---
US THORACENTESIS, HISTORY: RT PLEURAL EFFUSION PROCEDURE: Informed consent was obtained. The patient was decubitus on the bed. A limited localizatio n ultrasound of the right thorax was obtained, and the optimal approach was marked on the skin. The a new was prepped with chlorhexidine which was allowed to dry and draped in the usual sterile fashion. Time out was performed. The skin and the soft tissues were infiltrated with 1% lidocaine. A 5.5 Frenc h centesis needle catheter was advanced into right pleural space. Following aspiration of fluid, the catheter was advanced and the needle removed. About 200 cc of fluid was drained. Specimen/s was/were sent for appropriate cultures/cytology/cultures and cytology. No immediate complication was identifie d. FINDINGS: Small right pleural effusion. Aspirated fluid is clear and serous. IMPRESSION: Right thoracentesis with 200 mL removed.
[2024-12-06] MEDS: NICOTINE 14 MG/24HR TOPICAL PATCH TD ONE (13:45)
[2024-12-06] MEDS: AMIODARONE BOLUS KIT 100 ML IV ONE (15:50)
[2024-12-06] MEDS: AMIODARONE 360mg/200mL PREMIX 200 ML IV ONE (16:37)
[2024-12-06 21:09] LABS: Body Fluid Polymorphonuclear 93 % (0-25); Body Fluid Red Blood Cells 40 CUMM (0-2000); Body Fluid White Blood Cells 10412 CUMM (0-200)
[2024-12-06] MEDS: HYDROCORTISONE SOD SUCC 100 MG/2ML INJ VIAL IV SCH (21:34)
[2024-12-06] MEDS: AMIODARONE 360mg/200mL PREMIX 200 ML IV SCH (21:36)
[2024-12-06] MEDS: ENOXAPARIN SOD 100 MG/1 ML SYRINGE SC SCH (21:36)
[2024-12-06] MEDS ORDERED: METOPROLOL TARTRATE 25 MG TAB PO SCH (22:00)
[2024-12-07] VITALS (33 sets, daily range): BP systolic 106–147; BP diastolic 44–78; PULSE 103–138; RESP 15–35; TEMP 97.7–99.2; O2SAT 90–98
--- NOTE | 2024-12-07 05:50 | DVH ---
CHEST RADIOGRAPH Indication: sob Technique: Single frontal view of the chest was obtained COMPARISON: XY CHEST PORTABLE on DOS: 12/06/24, XY CHEST PORTABLE on DOS: 12/06/24, XY CHEST XRAY 1 VIE W on DOS: 12/05/24, XY CHEST XRAY 1 VIEW on DOS: 12/05/24, XY CHEST PORTABLE on DOS: 06/27/23 FINDINGS: Lines and Tubes: None Lungs: Left mid and lower lung consolidation. Pleura: No effusion. No pneumothorax. Cardiomediastinal contours: Cardiomegaly Bones: Unremarkable IMPRESSION: No significant interval change
[2024-12-07 06:09] LABS: Mean Corpuscular Volume 71.5 fL (80.0-100.0)
[2024-12-07 06:12] LABS: Hematocrit 28.9 % (36.0-46.0); Hemoglobin 9.2 g/dL (12.2-16.2); Mean Corpuscular Hemoglobin 22.8 pg (28.0-32.0); Mean Corpuscular Hgb Conc. 31.8 g/dL (32.0-36.0); Platelet Count (auto) 241 10^3/uL (140-450); Red Blood Cells 4.04 10^6/uL (4.0-5.20); White Blood Cell 17.6 10^3/uL (4.4-10.8)
[2024-12-07 06:21] LABS: Basophils % (manual) 0 (0.0-2.0); Blast Cells 0; Eosinophils % (manual) 0 (0-7); Metamyelocytes % 0; Myelocytes % 0; Promyelocytes % 0; Reactive Lymphocytes 0
[2024-12-07 06:33] LABS: Alanine Aminotransferase 19 U/L (7-40); Albumin 3.8 g/dL (3.2-4.8); Alkaline Phosphatase 78 U/L (46-116); Anion Gap 12 (5-15); Aspartate Aminotransferase 27 U/L (13-40); BUN/Creatinine Ratio 31.7 (10.0-20.0); Bilirubin, Total 0.3 mg/dL (0.2-1.0); Calcium 9.7 mg/dL (8.7-10.4); Carbon Dioxide 21 mmol/L (20-31); Chloride 106 mmol/L (98-107); Magnesium 2.2 mg/dL (1.6-2.6); Sodium 139 mmol/L (136-145); Total Protein 6.7 g/dL (5.7-8.2)
[2024-12-07 06:55] LABS: Blood Urea Nitrogen 38 mg/dL (9-23); Glucose 128 mg/dL (74-106)
[2024-12-07] MEDS ORDERED: POTASSIUM CHL 20MEQ/100ML 100 ML IV SCH ×2 (07:30→08:30)
[2024-12-07] MEDS ORDERED: AMIODARONE 360mg/200mL PREMIX 200 ML IV SCH (08:30)
[2024-12-07] MEDS: AMIODARONE 360mg/200mL PREMIX 200 ML IV SCH (08:30)
[2024-12-07 09:05] LABS: Band Neutrophils % (manual) 8; Hypochromia Slight; Lymphocytes % (manual) 7 (10.0-50.0); Monocytes % (manual) 7 (0-12); Platelet Estimate Adequate
[2024-12-07] MEDS: POTASSIUM CHL 20MEQ/50ML 50 ML IV ONE (09:45)
[2024-12-07] MEDS ORDERED: POTASSIUM CHL 20MEQ/100ML 50 ML IV SCH (09:45)
[2024-12-07] MEDS: SODIUM CHL 0.9% 100 ML IV SCH (10:00)
[2024-12-07] MEDS: FUROSEMIDE 40 MG/4 ML VIAL IV SCH (10:31)
[2024-12-07] MEDS: METOPROLOL TARTRATE 25 MG TAB PO SCH (10:32)
[2024-12-07] MEDS: POTASSIUM EFFERVESENT TAB 25 MEQ PO ONE (10:35)
[2024-12-07] MEDS: NICOTINE 14 MG/24HR TOPICAL PATCH TD SCH (10:39)
--- NOTE | 2024-12-07 11:11 | DVHPNRES ---
Progress Note Date Seen: Dec 07, 2024 Resident Creating Document: MELIZA GUZMÁN RESIDENT Medical Necessity Reason Pt with a Central, PICC or Fol: Yes The following are medically ne: Issa Catheter Subjective Review of Systems On my assessment, patient only complain of shortness of breath. He is currently on Oxymizer 7 L saturating at 91%. She is in atrial fibrillation with RVR less than 130s. Family was at bedside, debrief with them on patient's current status. Objective vital signs Vital Sign Date Time Temp Pulse Resp B/P (MAP) Pulse Ox O2 Delivery O2 Flow Rate FiO2 12/07/24 10:32 114 125/63 12/07/24 10:00 16 94 12/07/24 09:39 Oxymizer 7 N/A 12/07/24 04:00 97.7 97.7 Total Intake and Output 12/06/24 12/06/24 12/07/24 15:00 23:00 07:00 Intake Total 176.65 ml 341.62 ml Output Total 300 ml 550 ml Balance -123.35 ml -208.38 ml medications Current Medications Medications Dose Ordered Sig/Felipe Route Start Time Stop Time Status Last Admin Dose Admin Morphine Sulfate 1 mg Q6HP PRN IV 12/05/24 02:15 12/07/24 01:18 1 MG Pantoprazole Sodium 40 mg BID IV 12/05/24 10:00 12/07/24 10:32 40 MG Enteral Nutritional Formula 240 ml BIDWM PO 12/05/24 08:00 12/07/24 08:00 240 ML Nitroglycerin 0.4 mg Q5MINP PRN SL 12/05/24 03:15 Doxycycline Hyclate 100 ml @ 50 mls/hr Q12H IV 12/05/24 16:00 12/07/24 03:39 50 MLS/HR Iron Sucrose 110 ml @ 110 mls/hr DAILY@1200 IV 12/05/24 12:00 12/09/24 12:59 12/06/24 12:46 110 MLS/HR Piperacillin Sod/ Tazobactam Sod 100 ml @ 25 mls/hr Q12HR IV 12/05/24 22:00 12/07/24 10:33 25 MLS/HR Ergocalciferol 50,000 unit Q7D PO 12/05/24 11:00 12/05/24 14:34 50,000 UNIT Levalbuterol HCl 0.625 mg Q4HWA [facility] 12/06/24 06:00 12/07/24 09:39 0.625 MG Ipratropium [place] 0.5 mg Q4HWA NEB 12/06/24 06:00 12/07/24 09:39 0.5 MG Hydrocortisone Sodium Succinate 100 mg Q12HR IV 12/06/24 22:00 12/07/24 10:32 100 MG Furosemide 40 mg DAILY IV 12/07/24 10:00 12/07/24 10:31 40 MG Nicotine 1 patch DAILY TD 12/07/24 10:00 12/07/24 10:39 1 PATCH Enoxaparin Sodium 50 mg Q12HR SC 12/06/24 22:00 12/07/24 10:34 50 MG Metoprolol Tartrate 25 mg BID PO 12/07/24 10:00 12/07/24 10:32 25 MG Sodium Chloride 100 ml @ 50 mls/hr Q2HR IV 12/07/24 10:00 12/07/24 13:59 Examination General: Awake, A&Ox1 in moderate distress due to SOB HEENT: Head is normocephalic and atraumatic. Pupils are equal, round, and reactive to light. Neck: Supple with no cervical lymphadenopathy Heart: irregular rate without murmur, rub, or gallop. Lungs: diffuse crackles Abdomen: No external sign of injury. Bowel sounds are present. Abdomen is soft, nontender. No rebound, no guarding, no rigidity. There are no palpable masses. There is no flank pain on exam. Extremities: Strong peripheral pulses. There is no clubbing, no cyanosis, and no edema. Skin: No rash. Neurologic: Cranial nerves II-XII intact without motor, sensory, deficits. laboratory and microbiology Laboratory Tests 12/07/24 05:54 Test 12/07/24 05:54 Range/Units Serum Glucose 128 H 74-106 mg/dL Microbiology Date/Time Source Procedure Growth Status 12/05/24 23:14 Nose MRSA Screen - Final Complete 12/05/24 20:48 Voided Urine Urine Culture - Preliminary Resulted 12/05/24 00:35 Blood Blood Culture - Preliminary NO GROWTH AFTER 48 HOURS OF INCUBATION. Resulted Labs and/or images reviewed: Labs reviewed by me, Image(s) reviewed by me Problem List/Assessment/Plan Problem List/Assessment/Plan #Sepsis due to pneumonia gram (+) vs gram (-), vs atypicals #Pleural effusion, bilateral #Lactic acidosis #AFib with RVR #MARQUISE due to VMN #NSTEMI type 2 #Microcytic anemia # COPD exacerbation #Recent GI bleed for which Plavix was discontinued (06/2024) #History of hypertension #Hyperlipidemia #Coronary artery disease S/P PCI X3 #Peripheral vascular disease, History of vascular bypass and femoral artery #History of GERD #Hypothyroidism #Cachexia, BMI: 18.9 #Current smoker #Vitamin D deficiency Plan: Continue Zosyn and doxycycline IV Therapeutic Lovenox Continue vitamin D 50,000 qweek pending urine cx so far no growth, blood cx so far no growth, sputum cx lasix 40mg iv qd Continue amiodarone IV start metoprolol 25mg po bid Continue on Oxymizer, maintain an oxygen saturation between 88-92% PUD prophylaxis: pantoprazole Goal of care discussed for more than 30 minute, full code Case and plan discussed with Dr. Judd critical care time 45 mins Plan discussed with: Patient, Other (RN) My Orders My Orders Orders - MELIZA GUZMÁN RESIDENT Procedure Category Date Status Time Chest Portable XY 12/07/24 Resulted 04:00 Furosemide Injection PHA 12/07/24 In Process (Lasix Injection) 10:00 Nicotine 14mg/24hr PHA 12/07/24 In Process (Nicoderm 14mg/24hr) 10:00 Enoxaparin Sodium PHA 12/06/24 In Process (Lovenox) 22:00 * Picc Line Consult CONS 12/07/24 Transmitted 08:20 Amiodarone PHA 12/07/24 In Process 360mg/200ml Premix 08:30 Metoprolol Tartrate PHA 12/07/24 In Process Tablet (Lopressor Ta 10:00 Potassium Chl PHA 12/07/24 In Process 20meq/50ml (Potassium 09:45 Sodium Chl 0.9% PHA 12/07/24 In Process (Sodium Chloride) 10:00 Complete Blood Count LAB 12/08/24 Verified 04:00 Comprehensive LAB 12/08/24 Verified Metabolic Panel 04:00 Magnesium LAB 12/08/24 Verified 04:00 Date of Service: Dec 07, 2024 Billing Provider: DAISY JUDD MD Common Visit Codes: [id number] CARE 30-74 MIN MELIZA GUZMÁN RESIDENT Dec 07, 2024 11:11 DAISY JUDD MD Dec 07, 2024 16:57
[2024-12-07 16:14] LABS: Potassium 3.7 mmol/L (3.5-5.1); Sodium 142 mmol/L (136-145)
[2024-12-07 16:15] LABS: Anion Gap 9 (5-15); Calcium 9.6 mg/dL (8.7-10.4); Carbon Dioxide 25 mmol/L (20-31)
--- NOTE | 2024-12-07 16:16 | DVHPN2 ---
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* Patient seen and examined Overnight events reviewed vital signs Vital Sign Date Time Temp Pulse Resp B/P (MAP) Pulse Ox O2 Delivery O2 Flow Rate FiO2 12/07/24 16:00 27 94 Oxymizer 10 N/A 12/07/24 15:00 119 108/44 (65) 12/07/24 04:00 97.7 97.7 Total Intake and Output 12/06/24 12/06/24 12/07/24 15:00 23:00 07:00 Intake Total 176.65 ml 358.28 ml Output Total 300 ml 550 ml Balance -123.35 ml -191.72 ml medications Current Medications Medications Dose Ordered Sig/Felipe Route Start Time Stop Time Status Last Admin Dose Admin Morphine Sulfate 1 mg Q6HP PRN IV 12/05/24 02:15 12/07/24 01:18 1 MG Pantoprazole Sodium 40 mg BID IV 12/05/24 10:00 12/07/24 10:32 40 MG Enteral Nutritional Formula 240 ml BIDWM PO 12/05/24 08:00 12/07/24 08:00 240 ML Nitroglycerin 0.4 mg Q5MINP PRN SL 12/05/24 03:15 Doxycycline Hyclate 100 ml @ 50 mls/hr Q12H IV 12/05/24 16:00 12/07/24 03:39 50 MLS/HR Iron Sucrose 110 ml @ 110 mls/hr DAILY@1200 IV 12/05/24 12:00 12/09/24 12:59 12/07/24 15:10 110 MLS/HR Piperacillin Sod/ Tazobactam Sod 100 ml @ 25 mls/hr Q12HR IV 12/05/24 22:00 12/07/24 10:33 25 MLS/HR Ergocalciferol 50,000 unit Q7D PO 12/05/24 11:00 12/05/24 14:34 50,000 UNIT Levalbuterol HCl 0.625 mg Q4HWA NEB 12/06/24 06:00 12/07/24 13:53 0.625 MG Ipratropium [place] 0.5 mg Q4HWA NEB 12/06/24 06:00 12/07/24 13:52 0.5 MG Hydrocortisone Sodium Succinate 100 mg Q12HR IV 12/06/24 22:00 12/07/24 10:32 100 MG Furosemide 40 mg DAILY IV 12/07/24 10:00 12/07/24 10:31 40 MG Nicotine 1 patch DAILY TD 12/07/24 10:00 12/07/24 10:39 1 PATCH Metoprolol Tartrate 25 mg BID PO 12/07/24 10:00 12/07/24 10:32 25 MG Enoxaparin Sodium 50 mg DAILY SC 12/08/24 10:00 laboratory and microbiology Laboratory Tests 12/07/24 05:54 Test 12/07/24 15:45 Range/Units Serum Glucose Pending Assessment/Plan Impression Acute hypoxemic respiratory failure Right pleural effusions Afib with RVR Pneumonia COPD Patient seen and examined in ICU Events Improving oxygen requirements On 4 liters nasal cannula Family at the bedside S/p right thoracentesis Labs and imaging reviewed Management Supplemental oxygen Titrate to maintain sats 90% or above Incentive spirometry Continue antibiotics F/u cultures Bronchodilators Monitor renal function Monitor electrolytes Supplement as needed Will consider left thoracentesis DVT prophylaxis Critical care time 35 minutes Plan discussed with: Patient KARLOS GURROLA MD Dec 07, 2024 16:16
[2024-12-07 16:20] LABS: BUN/Creatinine Ratio 38.5 (10.0-20.0); Magnesium 1.9 mg/dL (1.6-2.6)
[2024-12-07 16:23] LABS: Blood Urea Nitrogen 42 mg/dL (9-23); Chloride 108 mmol/L (98-107); Glucose 139 mg/dL (74-106)
[2024-12-07] MEDS: DIGOXIN (250MCG/ML) 2 ML AMPULE IV ONE (17:12)
[2024-12-07] MEDS: LIDOCAINE 1% (LOCAL ANESTH.) PF 5ml SDV ID ONE (18:28)
--- NOTE | 2024-12-07 19:10 | DVH ---
EXAM: XY CHEST PORTABLE TECHNIQUE: Single frontal chest radiograph CLINICAL HISTORY: PICC LINE PLACEMENT. COMPARISON: XY CHEST PORTABLE on DOS: 12/07/24, XY CHEST PORTABLE on DOS: 12/06/24, XY CHEST PORTABLE o n DOS: 12/06/24 Findings/Impression: Frontal chest radiograph demonstrates no acute osseous or superficial soft tissue abnormalities. Right upper extremity PICC terminates near the superior cavoatrial junction. The trachea is midline. Cardiomegaly with pulmonary vascular congestion. [id number] left pleural effusion with compressive atelectasis. A superimposed infectious proce ss is not excluded. Right lateral mid lung field airspace opacity. No pneumothorax.
[2024-12-07] MEDS: SODIUM CHLOR 0.9% PF (SALINE LOCK) 10ML VIAL/SYR IV SCH (22:00)
[2024-12-08] VITALS (40 sets, daily range): BP systolic 97–142; BP diastolic 55–85; PULSE 92–136; RESP 16–33; TEMP 97.5–98.8; O2SAT 77–100
[2024-12-08 06:14] LABS: Hematocrit 24.2 % (36.0-46.0); Hemoglobin 7.9 g/dL (12.2-16.2); Mean Corpuscular Hgb Conc. 32.8 g/dL (32.0-36.0); Mean Corpuscular Volume 70.1 fL (80.0-100.0); Platelet Count (auto) 227 10^3/uL (140-450); Red Blood Cells 3.45 10^6/uL (4.0-5.20); Red Cell Distribution Width 18.4 % (11.8-14.3)
[2024-12-08 06:22] LABS: Alanine Aminotransferase 19 U/L (7-40); Albumin 3.5 g/dL (3.2-4.8); Alkaline Phosphatase 85 U/L (46-116); Anion Gap 12 (5-15); Aspartate Aminotransferase 22 U/L (13-40); BUN/Creatinine Ratio 33.7 (10.0-20.0); Calcium 9.1 mg/dL (8.7-10.4); Carbon Dioxide 27 mmol/L (20-31); Chloride 103 mmol/L (98-107); Magnesium 1.9 mg/dL (1.6-2.6); Sodium 142 mmol/L (136-145)
[2024-12-08 06:23] LABS: Bilirubin, Total 0.3 mg/dL (0.2-1.0)
[2024-12-08 06:36] LABS: Blood Urea Nitrogen 34 mg/dL (9-23); Glucose 223 mg/dL (74-106); Potassium 2.9 mmol/L (3.5-5.1)
[2024-12-08 06:43] LABS: Band Neutrophils % (manual) 0; Basophils % (manual) 0 (0.0-2.0); Blast Cells 0; Eosinophils % (manual) 0 (0-7); Metamyelocytes % 0; Myelocytes % 0; Promyelocytes % 0; Reactive Lymphocytes 0
[2024-12-08] MEDS ORDERED: DEXTROSE (50%) 50ML SYRG IV PRN (08:15)
--- NOTE | 2024-12-08 08:16 | DVHPNRES ---
Progress Note Date Seen: Dec 08, 2024 Resident Creating Document: MELIZA GUZMÁN RESIDENT Medical Necessity Reason Pt with a Central, PICC or Fol: Yes The following are medically ne: Issa Catheter Subjective Review of Systems On my assessment, patient only complain of shortness of breath. He is currently on Oxymizer 7 L saturating at 91%. She is in atrial fibrillation with RVR less than 130s. Family was at bedside, debrief with them on patient's current status. Blood pressure is holding on between 130/60. she has a negative [place]-800[place] [address], hemoglobin dropped at 7.9. Objective vital signs Vital Sign Date Time Temp Pulse Resp B/P (MAP) Pulse Ox O2 Delivery O2 Flow Rate FiO2 12/08/24 07:16 120 20 96 12/08/24 07:10 Oxymizer 6.0 12/08/24 07:10 N/A 12/08/24 07:00 132/62 (85) 12/08/24 04:01 98.8 98.8 Total Intake and Output 12/07/24 12/07/24 12/08/24 15:00 23:00 07:00 Intake Total 499.97 ml 591.64 ml 391.64 ml Output Total 900 ml 950 ml Balance 499.97 ml -308.36 ml -558.36 ml medications Current Medications Medications Dose Ordered Sig/Felipe Route Start Time Stop Time Status Last Admin Dose Admin Morphine Sulfate 1 mg Q6HP PRN IV 12/05/24 02:15 12/08/24 01:10 1 MG Pantoprazole Sodium 40 mg BID IV 12/05/24 10:00 12/07/24 22:00 40 MG Enteral Nutritional Formula 240 ml BIDWM PO 12/05/24 08:00 12/07/24 18:00 240 ML Nitroglycerin 0.4 mg Q5MINP PRN SL 12/05/24 03:15 Doxycycline Hyclate 100 ml @ 50 mls/hr Q12H IV 12/05/24 16:00 12/08/24 07:02 50 MLS/HR Iron Sucrose 110 ml @ 110 mls/hr DAILY@1200 IV 12/05/24 12:00 12/09/24 12:59 12/07/24 15:10 110 MLS/HR Piperacillin Sod/ Tazobactam Sod 100 ml @ 25 mls/hr Q12HR IV 12/05/24 22:00 12/07/24 22:00 25 MLS/HR Ergocalciferol 50,000 unit Q7D PO 12/05/24 11:00 12/05/24 14:34 50,000 UNIT Levalbuterol HCl 0.625 mg Q4HWA NEB 12/06/24 06:00 12/08/24 07:10 0.625 MG Ipratropium [place] 0.5 mg Q4HWA NEB 12/06/24 06:00 12/08/24 07:09 0.5 MG Hydrocortisone Sodium Succinate 100 mg Q12HR IV 12/06/24 22:00 12/07/24 22:00 100 MG Furosemide 40 mg DAILY IV 12/07/24 10:00 12/07/24 10:31 40 MG Nicotine 1 patch DAILY TD 12/07/24 10:00 12/07/24 10:39 1 PATCH Metoprolol Tartrate 25 mg BID PO 12/07/24 10:00 12/07/24 22:00 25 MG Enoxaparin Sodium 50 mg DAILY SC 12/08/24 10:00 Sodium Chloride 10 ml QSHIFT@10,22 IV 12/07/24 22:00 12/07/24 22:00 10 ML Potassium Chloride 100 ml @ 50 mls/hr Q2H IV 12/08/24 08:15 12/08/24 16:14 UNV Diagnostic Test (Pha) 1 strip ACHS 12/08/24 11:30 UNV Insulin Human Regular ACHS SC 12/08/24 11:30 UNV Dextrose 50 ml UD PRN IV 12/08/24 08:15 UNV Examination General: Awake, A&Ox1 in moderate distress due to SOB HEENT: Head is normocephalic and atraumatic. Pupils are equal, round, and reactive to light. Neck: Supple with no cervical lymphadenopathy Heart: irregular rate without murmur, rub, or gallop. Lungs: diffuse crackles Abdomen: No external sign of injury. Bowel sounds are present. Abdomen is soft, nontender. No rebound, no guarding, no rigidity. There are no palpable masses. There is no flank pain on exam. Extremities: Strong peripheral pulses. There is no clubbing, no cyanosis, and no edema. Skin: No rash. Neurologic: Cranial nerves II-XII intact without motor, sensory, deficits. laboratory and microbiology Laboratory Tests 12/08/24 05:20 Test 12/08/24 05:20 Range/Units Serum Glucose 223 H 74-106 mg/dL Microbiology Date/Time Source Procedure Growth Status 12/05/24 23:14 Nose MRSA Screen - Final Complete 12/05/24 20:48 Voided Urine Urine Culture - Preliminary Resulted 12/05/24 00:35 Blood Blood Culture - Preliminary NO GROWTH AFTER 72 HOURS OF INCUBATION. Resulted Labs and/or images reviewed: Labs reviewed by me, Image(s) reviewed by me Problem List/Assessment/Plan Problem List/Assessment/Plan #Sepsis due to pneumonia gram (+) vs gram (-), vs atypicals #Pleural effusion, bilateral status post left thoracentesis #Lactic acidosis #AFib with RVR #MARQUISE due to VMN #NSTEMI type 2 #Microcytic anemia # COPD exacerbation #Recent GI bleed for which Plavix was discontinued (06/2024) #History of hypertension #Hyperlipidemia #Coronary artery disease S/P PCI X3 #Peripheral vascular disease, History of vascular bypass and femoral artery #History of GERD #Hypothyroidism #Cachexia, BMI: 18.9 #Current smoker #Vitamin D deficiency Plan: Continue Zosyn and doxycycline IV Therapeutic Lovenox Continue vitamin D 50,000 qweek pending urine cx so far no growth, blood cx so far no growth, sputum cx lasix 40mg iv qd Continue amiodarone IV, we will try to titrate down Continue metoprolol 50mg po bid Continue on Oxymizer, maintain an oxygen saturation between 88-92% PUD prophylaxis: pantoprazole Goal of care discussed for more than 30 minute, full code Has a family meeting which we discussed patient current status, hospice discussion was done, as well as code status. Patient remains full code. Critical care time spent over 90 minutes Case and plan discussed with Dr. Judd Plan discussed with: Patient, Other (RN) My Orders My Orders Orders - MELIZA GUZMÁN RESIDENT Procedure Category Date Status Time * Picc Line Consult CONS 12/07/24 Transmitted 08:20 Amiodarone PHA 12/07/24 In Process 360mg/200ml Premix 08:30 Metoprolol Tartrate PHA 12/07/24 In Process Tablet (Lopressor Ta 10:00 Complete Blood Count LAB 12/08/24 In Process 04:00 Enoxaparin Sodium PHA 12/08/24 In Process (Lovenox) 10:00 Nursing Protocol Picc ELIA 12/07/24 In Process 18:10 Change Dressing Prn [facility] 12/07/24 In Process 18:10 PICC BD 12/07/24 Transmitted 18:10 Sodium Chloride Lock PHA 12/07/24 In Process (Saline Lock Ns) 22:00 Do Not Use Picc For [facility] 12/07/24 In Process Blood Cult 18:10 May Draw Blood From [facility] 12/07/24 In Process Picc 18:10 Chest Portable XY 12/07/24 Resulted 18:10 Ok To Use Picc ELIA 12/07/24 In Process 18:10 Change Picc Dressing [facility] 12/07/24 In Process Q7 Days 18:10 Manual Differential LAB 12/08/24 In Process 05:20 Potassium Chl PHA 12/08/24 Logged 20meq/100ml 08:15 Stool Occult Blood LAB 12/08/24 Logged 08:04 Glucose Blood PHA 12/08/24 Logged (Accu-Chek Comfort 11:30 Insulin R (Human) PHA 12/08/24 Logged (Insulin R) 11:30 Dextrose 50% Syringe PHA 12/08/24 Logged 08:15 Magnesium Sulfate PHA 12/08/24 Logged 1gm/100ml 08:15 Dietary Evaluation Review Recommendations by RD: Increase Calorie Intake, Protein Supplementation Comments: 1) Initiate Ensure clear tid. Promote optimal PO intake 2) Advance to 60g [facility] cardiac diet when medically feasible, pending [employer] approval. When diet advances, switch Ensure Clear to Ensure Enlive tid 3) Refer to outpatient RD/CDCES for weight gain 4) F/u with pulmonology, cardiology, and gastroenterology Expected Outcomes/Goals: 1) appetite and labs to improve 2) diet to advance 3) f/u in 3 days Date of Service: Dec 08, 2024 Billing Provider: DAISY JUDD MD Common Visit Codes: [id number] CARE 30-74 MIN MELIZA GUZMÁN RESIDENT Dec 08, 2024 08:16 DAISY JUDD MD Dec 08, 2024 14:49
[2024-12-08] MEDS: POTASSIUM CHL 20MEQ/50ML 50 ML IV SCH (08:30)
[2024-12-08 08:39] LABS: Hypochromia Slight; Lymphocytes % (manual) 8 (10.0-50.0); Monocytes % (manual) 1 (0-12); Platelet Estimate Adequate
[2024-12-08] MEDS: MAGNESIUM SULFATE 1GM/100ML 100 ML IV ONE (10:26)
[2024-12-08] MEDS: ENOXAPARIN SOD 60 MG/0.6 ML SYRINGE SC SCH (10:28)
[2024-12-08] MEDS: METOPROLOL TARTRATE 25 MG TAB PO SCH (10:30)
[2024-12-08] MEDS: ACCU-CHEK COMFORT CURVE STRIP VI SCH (11:30)
[2024-12-08] MEDS: LIDOCAINE 1% HCL (LOCAL ANESTH.) INJ 20ML MDV ID ONE (11:45)
--- NOTE | 2024-12-08 12:41 | DVHNC2 ---
Other Procedure Procedure Thoracentesis Indication Left pleural effusion Anesthetic Lidocaine Prep A time-out was completed verifying correct patient, procedure, site, positioning, and special equipment if applicable. The patients left side was prepped and draped in a sterile manner after the appropriate infiltration level was confirmed by ultrasound. 1% lidocaine was used anesthetize the surrounding skin. A finder needle was then used to locate fluid and clear yellow fluid was obtained. A 10-blade scalpel used to make the incision. The thoracentesis catheter was then threaded without difficulty. The patient had 500mL of clear yellow fluid removed. Dr. Garvin was present for the entire procedure. A post-procedure chest x-ray was ordered and the fluid will be sent for several studies. Estimated Blood Loss: 5mL The patient tolerated the procedure well and there were no complications. Informed consent obtained: Yes Risks, benefits, and alternati: Yes Date of Service: Dec 08, 2024 Billing Provider: KARLOS GARVIN MD Common Visit Codes: PROCEDURE ONLY MELIZA GUZMÁN RESIDENT Dec 08, 2024 12:41
[2024-12-08] MEDS: ENSURE CLEAR Mixed Berry 8oz Carton PO SCH (12:43)
[2024-12-08] MEDS: InsuLIN REG 1unit/0.01ml Soln (100units/ml) SC SCH (12:45)
--- NOTE | 2024-12-08 13:10 | DVHPN2 ---
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* pneumonia acute hypoxemic resp failure altered MS atelectases Patient seen and examined on [place] Overnight events reviewed confused on 5 lpm s/p right thora 200 cc fluid CXR reviewed management plan cont abx consider left paracent aspiration precautions alb/atr nutrition monitor daily labs/renal function gi and dvt proph family contemplating comfort measures/hospice crit care time 35min vital signs Vital Sign Date Time Temp Pulse Resp B/P (MAP) Pulse Ox O2 Delivery O2 Flow Rate FiO2 12/08/24 12:00 16 100 Oxymizer 5 N/A 12/08/24 12:00 98.1 104 131/56 (81) 98.1 Total Intake and Output 12/07/24 12/07/24 12/08/24 15:00 23:00 07:00 Intake Total 499.97 ml 591.64 ml 391.64 ml Output Total 900 ml 950 ml Balance 499.97 ml -308.36 ml -558.36 ml medications Current Medications Medications Dose Ordered Sig/Felipe Route Start Time Stop Time Status Last Admin Dose Admin Morphine Sulfate 1 mg Q6HP PRN IV 12/05/24 02:15 12/08/24 01:10 1 MG Pantoprazole Sodium 40 mg BID IV 12/05/24 10:00 12/08/24 10:26 40 MG Nitroglycerin 0.4 mg Q5MINP PRN SL 12/05/24 03:15 Doxycycline Hyclate 100 ml @ 50 mls/hr Q12H IV 12/05/24 16:00 12/08/24 07:02 50 MLS/HR Iron Sucrose 110 ml @ 110 mls/hr DAILY@1200 IV 12/05/24 12:00 12/09/24 12:59 12/07/24 15:10 110 MLS/HR Piperacillin Sod/ Tazobactam Sod 100 ml @ 25 mls/hr Q12HR IV 12/05/24 22:00 12/08/24 12:31 25 MLS/HR Ergocalciferol 50,000 unit Q7D PO 12/05/24 11:00 12/05/24 14:34 50,000 UNIT Levalbuterol HCl 0.625 mg Q4HWA NEB 12/06/24 06:00 12/08/24 09:53 0.625 MG Ipratropium [place] 0.5 mg Q4HWA NEB 12/06/24 06:00 12/08/24 07:09 0.5 MG Hydrocortisone Sodium Succinate 100 mg Q12HR IV 12/06/24 22:00 12/08/24 10:26 100 MG Furosemide 40 mg DAILY IV 12/07/24 10:00 12/08/24 10:28 40 MG Nicotine 1 patch DAILY TD 12/07/24 10:00 12/08/24 10:31 1 PATCH Enoxaparin Sodium 50 mg DAILY SC 12/08/24 10:00 12/08/24 10:28 50 MG Sodium Chloride 10 ml QSHIFT@10,22 IV 12/07/24 22:00 12/08/24 10:27 10 ML Potassium Chloride 50 ml @ 25 mls/hr Q2H IV 12/08/24 08:30 12/08/24 16:29 12/08/24 10:30 25 MLS/HR Diagnostic Test (Pha) 1 strip ACHS 12/08/24 11:30 12/08/24 11:30 1 STRIP Insulin Human Regular ACHS SC 12/08/24 11:30 12/08/24 12:45 2 UNITS Dextrose 50 ml UD PRN IV 12/08/24 08:15 Enteral Nutritional Formula 240 ml TIDWM PO 12/08/24 12:00 12/08/24 12:43 240 ML Metoprolol Tartrate 50 mg BID PO 12/08/24 10:15 12/08/24 10:30 50 MG laboratory and microbiology Laboratory Tests 12/08/24 05:20 Test 12/08/24 05:20 Range/Units Serum Glucose 223 H 74-106 mg/dL Assessment/Plan Impression Acute hypoxemic respiratory failure Right pleural effusions Afib with RVR Pneumonia COPD Patient seen and examined in ICU Events Improving oxygen requirements On 4 liters nasal cannula Family at the bedside S/p right thoracentesis Labs and imaging reviewed Management Supplemental oxygen Titrate to maintain sats 90% or above Incentive spirometry Continue antibiotics F/u cultures Bronchodilators Monitor renal function Monitor electrolytes Supplement as needed Will consider left thoracentesis DVT prophylaxis Critical care time 35 minutes Dietary Evaluation Review Recommendations by RD: Increase Calorie Intake, Protein Supplementation Comments: 1) Initiate Ensure clear tid. Promote optimal PO intake 2) Advance to 60g [facility] cardiac diet when medically feasible, pending [employer] approval. When diet advances, switch Ensure Clear to Ensure Enlive tid 3) Refer to outpatient RD/CDCES for weight gain 4) F/u with pulmonology, cardiology, and gastroenterology Expected Outcomes/Goals: 1) appetite and labs to improve 2) diet to advance 3) f/u in 3 days Plan discussed with: Other (rn) KARLOS GURROLA MD Dec 08, 2024 13:10
--- NOTE | 2024-12-08 13:12 | DVHPN2 ---
Progress Note - Dictate Date Seen: Dec 08, 2024 Medical Necessity Reason Pt with a Central, PICC or Fol: Yes The following are medically ne: Issa Catheter Subjective *Document Control Manager rounds* pneumonia acute hypoxemic resp failure altered MS atelectases Patient seen and examined on moriah Overnight events reviewed confused on 5 lpm s/p right thora 200 cc fluid CXR reviewed management plan cont abx consider left paracent aspiration precautions alb/atr nutrition monitor daily labs/renal function gi and dvt proph family contemplating comfort measures/hospice crit care time 35min vital signs Vital Sign Date Time Temp Pulse Resp B/P (MAP) Pulse Ox O2 Delivery O2 Flow Rate FiO2 12/08/24 12:00 16 100 Oxymizer 5 N/A 12/08/24 12:00 98.1 104 131/56 (81) 98.1 Total Intake and Output 12/07/24 12/07/24 12/08/24 15:00 23:00 07:00 Intake Total 499.97 ml 591.64 ml 391.64 ml Output Total 900 ml 950 ml Balance 499.97 ml -308.36 ml -558.36 ml medications Current Medications Medications Dose Ordered Sig/Felipe Route Start Time Stop Time Status Last Admin Dose Admin Morphine Sulfate 1 mg Q6HP PRN IV 12/05/24 02:15 12/08/24 01:10 1 MG Pantoprazole Sodium 40 mg BID IV 12/05/24 10:00 12/08/24 10:26 40 MG Nitroglycerin 0.4 mg Q5MINP PRN SL 12/05/24 03:15 Doxycycline Hyclate 100 ml @ 50 mls/hr Q12H IV 12/05/24 16:00 12/08/24 07:02 50 MLS/HR Iron Sucrose 110 ml @ 110 mls/hr DAILY@1200 IV 12/05/24 12:00 12/09/24 12:59 12/07/24 15:10 110 MLS/HR Piperacillin Sod/ Tazobactam Sod 100 ml @ 25 mls/hr Q12HR IV 12/05/24 22:00 12/08/24 12:31 25 MLS/HR Ergocalciferol 50,000 unit Q7D PO 12/05/24 11:00 12/05/24 14:34 50,000 UNIT Levalbuterol HCl 0.625 mg Q4HWA NEB 12/06/24 06:00 12/08/24 09:53 0.625 MG Ipratropium [place] 0.5 mg Q4HWA NEB 12/06/24 06:00 12/08/24 07:09 0.5 MG Hydrocortisone Sodium Succinate 100 mg Q12HR IV 12/06/24 22:00 12/08/24 10:26 100 MG Furosemide 40 mg DAILY IV 12/07/24 10:00 12/08/24 10:28 40 MG Nicotine 1 patch DAILY TD 12/07/24 10:00 12/08/24 10:31 1 PATCH Enoxaparin Sodium 50 mg DAILY SC 12/08/24 10:00 12/08/24 10:28 50 MG Sodium Chloride 10 ml QSHIFT@10,22 IV 12/07/24 22:00 12/08/24 10:27 10 ML Potassium Chloride 50 ml @ 25 mls/hr Q2H IV 12/08/24 08:30 12/08/24 16:29 12/08/24 10:30 25 MLS/HR Diagnostic Test (Pha) 1 strip ACHS 12/08/24 11:30 12/08/24 11:30 1 STRIP Insulin Human Regular ACHS SC 12/08/24 11:30 12/08/24 12:45 2 UNITS Dextrose 50 ml UD PRN IV 12/08/24 08:15 Enteral Nutritional Formula 240 ml TIDWM PO 12/08/24 12:00 12/08/24 12:43 240 ML Metoprolol Tartrate 50 mg BID PO 12/08/24 10:15 12/08/24 10:30 50 MG laboratory and microbiology Laboratory Tests 12/08/24 05:20 Test 12/08/24 05:20 Range/Units Serum Glucose 223 H 74-106 mg/dL Assessment/Plan Impression Acute hypoxemic respiratory failure Right pleural effusions Afib with RVR Pneumonia COPD Patient seen and examined in ICU Events s/p left thora today 500 cc (see resident's note for procedure detail) fluid turbid ?parapneumonic Labs and imaging reviewed Management Supplemental oxygen Titrate to maintain sats 90% or above Incentive spirometry Continue antibiotics F/u cultures Bronchodilators Monitor renal function Monitor electrolytes Supplement as needed DVT prophylaxis Critical care time 35 minutes Dietary Evaluation Review Recommendations by RD: Increase Calorie Intake, Protein Supplementation Comments: 1) Initiate Ensure clear tid. Promote optimal PO intake 2) Advance to 60g CCHO cardiac diet when medically feasible, pending POOL TABLE OPERATOR approval. When diet advances, switch Ensure Clear to Ensure Enlive tid 3) Refer to outpatient RD/CDCES for weight gain 4) F/u with pulmonology, cardiology, and gastroenterology Expected Outcomes/Goals: 1) appetite and labs to improve 2) diet to advance 3) f/u in 3 days Plan discussed with: Other (rn) KARLOS GURROLA MD Dec 08, 2024 13:12
[2024-12-08 13:51] LABS: Body Fluid Polymorphonuclear 84 % (0-25); Body Fluid Red Blood Cells 1653 CUMM (0-2000); Body Fluid White Blood Cells 19443 CUMM (0-200)
--- NOTE | 2024-12-08 14:07 | DVH ---
CHEST RADIOGRAPH Indication: s/p thoracentesis Technique: Single frontal view of the chest was obtained COMPARISON: XY CHEST PORTABLE on DOS: 12/07/24, FINDINGS: Lines and Tubes: Similar right upper extremity PICC. Lungs: Improving consolidation in the left lung. Improving opacification in the right mid lung. No pl eural effusion identified. No pneumothorax. Cardiomediastinal contours: Stable. Bones: Unremarkable IMPRESSION: 1. Improving consolidation in the left lung. Improving airspace disease in the right mid lung. No def inite pleural effusion identified.
[2024-12-08 17:07] LABS: Chloride 106 mmol/L (98-107); Potassium 3.7 mmol/L (3.5-5.1); Sodium 145 mmol/L (136-145)
[2024-12-08 17:08] LABS: Anion Gap 11 (5-15); Calcium 9.1 mg/dL (8.7-10.4); Carbon Dioxide 28 mmol/L (20-31)
[2024-12-08 17:13] LABS: BUN/Creatinine Ratio 31.2 (10.0-20.0); Magnesium 2.2 mg/dL (1.6-2.6)
[2024-12-08 17:48] LABS: Blood Urea Nitrogen 29 mg/dL (9-23); Glucose 230 mg/dL (74-106)
[2024-12-09] VITALS (43 sets, daily range): BP systolic 108–139; BP diastolic 56–90; PULSE 95–170; RESP 14–30; TEMP 97.9–99.1; O2SAT 93–100
--- NOTE | 2024-12-09 05:19 | DVH ---
Exam: US US GUIDED VASCULAR ACCESS Clinical History: PICC LINE PLACEMENT Comparison: None Findings: Targeted sonographic evaluation of the right upper arm veinwas obtained utilizing grayscale and color Doppler imaging. IMPRESSION: Sonographic assistance for central line placement. Please refer to procedural report for detailed fin dings.
--- NOTE | 2024-12-09 05:22 | DVH ---
EXAM: XR Chest, 1 View CLINICAL INDICATION: sob TECHNIQUE: Frontal view of the chest. COMPARISON: XY CHEST PORTABLE on DOS: 12/08/24, XY CHEST PORTABLE on DOS: 12/07/24, XY CHEST PORTABLE on DOS: 12/07/24, XY CHEST PORTABLE on DOS: 12/06/24, XY CHEST PORTABLE on DOS: 12/06/24 FINDINGS: LUNGS AND PLEURAL SPACES: Mild CHF. Left perihilar airspace disease, likely pneumonia and/or with pleural effusion. No pneumothorax. HEART: Unremarkable. No cardiomegaly. MEDIASTINUM: Unremarkable. Normal mediastinal contour. BONES/JOINTS: Unremarkable. No acute fracture. TUBES, LINES AND DEVICES: Stable right-sided PICC line. OTHER FINDINGS: No significant change from the prior exam. . IMPRESSION: No significant change from the prior exam.
[2024-12-09 05:34] LABS: Hemoglobin 8.7 g/dL (12.2-16.2)
[2024-12-09 05:36] LABS: Hematocrit 27.2 % (36.0-46.0); Mean Corpuscular Hemoglobin 22.5 pg (28.0-32.0); Mean Corpuscular Hgb Conc. 31.9 g/dL (32.0-36.0); Mean Corpuscular Volume 70.6 fL (80.0-100.0); Platelet Count (auto) 235 10^3/uL (140-450); Red Blood Cells 3.85 10^6/uL (4.0-5.20); Red Cell Distribution Width 18.8 % (11.8-14.3); White Blood Cell 17.5 10^3/uL (4.4-10.8)
[2024-12-09 05:42] LABS: Basophils % (manual) 0 (0.0-2.0); Blast Cells 0; Eosinophils % (manual) 0 (0-7); Myelocytes % 0; Promyelocytes % 0; Reactive Lymphocytes 0
[2024-12-09 06:02] LABS: Alanine Aminotransferase 20 U/L (7-40); Albumin 3.7 g/dL (3.2-4.8); Alkaline Phosphatase 88 U/L (46-116); Anion Gap 10 (5-15); Aspartate Aminotransferase 12 U/L (13-40); Blood Urea Nitrogen 24 mg/dL (9-23); Calcium 9.1 mg/dL (8.7-10.4); Carbon Dioxide 31 mmol/L (20-31); Chloride 109 mmol/L (98-107); Glucose 117 mg/dL (74-106); Magnesium 2.1 mg/dL (1.6-2.6); Potassium 2.7 mmol/L (3.5-5.1); Sodium 150 mmol/L (136-145); Total Protein 6.3 g/dL (5.7-8.2)
[2024-12-09 06:03] LABS: Bilirubin, Total 0.3 mg/dL (0.2-1.0)
[2024-12-09 06:21] LABS: Band Neutrophils % (manual) 1; Lymphocytes % (manual) 4 (10.0-50.0); Metamyelocytes % 2; Monocytes % (manual) 1 (0-12)
[2024-12-09 06:22] LABS: Hypochromia Slight
[2024-12-09 06:23] LABS: Platelet Estimate Adequate
[2024-12-09] MEDS: POTASSIUM CHL 20MEQ/50ML 50 ML IV SCH (06:55)
--- NOTE | 2024-12-09 07:18 | DVHPNRES ---
Progress Note Date Seen: Dec 09, 2024 Resident Creating Document: MELIZA GUZMÁN RESIDENT Medical Necessity Reason Pt with a Central, PICC or Fol: No The following are medically ne: Issa Catheter Subjective Review of Systems On my assessment, patient only complain of shortness of breath. He is currently on NC 5 L saturating at 91%.Afib HR 100-110s Family was at bedside, debrief with them on patient's current status. Blood pressure is holding on between 130/60. Objective vital signs Vital Sign Date Time Temp Pulse Resp B/P (MAP) Pulse Ox O2 Delivery O2 Flow Rate FiO2 12/09/24 07:00 113 27 139/69 (92) 96 12/09/24 06:13 Nasal Cannula* 5 40 12/09/24 04:00 98.2 98.2 Total Intake and Output 12/08/24 12/08/24 12/09/24 15:00 23:00 07:00 Intake Total 616.64 ml 509.14 ml 484.14 ml Output Total 1750 ml 1150 ml Balance 616.64 ml -1240.86 ml -665.86 ml medications Current Medications Medications Dose Ordered Sig/Felipe Route Start Time Stop Time Status Last Admin Dose Admin Morphine Sulfate 1 mg Q6HP PRN IV 12/05/24 02:15 12/08/24 01:10 1 MG Nitroglycerin 0.4 mg Q5MINP PRN SL 12/05/24 03:15 Doxycycline Hyclate 100 ml @ 50 mls/hr Q12H IV 12/05/24 16:00 12/09/24 03:52 50 MLS/HR Iron Sucrose 110 ml @ 110 mls/hr DAILY@1200 IV 12/05/24 12:00 12/09/24 12:59 12/08/24 12:00 110 MLS/HR Piperacillin Sod/ Tazobactam Sod 100 ml @ 25 mls/hr Q12HR IV 12/05/24 22:00 12/08/24 21:45 25 MLS/HR Ergocalciferol 50,000 unit Q7D PO 12/05/24 11:00 12/05/24 14:34 50,000 UNIT Levalbuterol HCl 0.625 mg Q4HWA NEB 12/06/24 06:00 12/09/24 06:13 0.625 MG Ipratropium [place] 0.5 mg Q4HWA NEB 12/06/24 06:00 12/09/24 06:13 0.5 MG Nicotine 1 patch DAILY TD 12/07/24 10:00 12/08/24 10:31 1 PATCH Enoxaparin Sodium 50 mg DAILY SC 12/08/24 10:00 12/08/24 10:28 50 MG Sodium Chloride 10 ml QSHIFT@10,22 IV 12/07/24 22:00 12/08/24 21:45 10 ML Diagnostic Test (Pha) 1 strip ACHS 12/08/24 11:30 12/09/24 06:40 1 STRIP Insulin Human Regular ACHS SC 12/08/24 11:30 12/08/24 22:02 2 UNITS Dextrose 50 ml UD PRN IV 12/08/24 08:15 Enteral Nutritional Formula 240 ml TIDWM PO 12/08/24 12:00 12/08/24 18:19 240 ML Metoprolol Tartrate 50 mg BID PO 12/08/24 10:15 12/08/24 21:46 50 MG Potassium Chloride 50 ml @ 25 mls/hr Q2H IV 12/09/24 06:45 12/09/24 14:44 12/09/24 06:55 25 MLS/HR Furosemide 20 mg DAILY IV 12/09/24 10:00 UNV Hydrocortisone Sodium Succinate 100 mg DAILY IV 12/09/24 10:00 UNV Pantoprazole Sodium 40 mg DAILY IV 12/09/24 10:00 UNV Examination General: Awake, A&Ox1 in moderate distress due to SOB HEENT: Head is normocephalic and atraumatic. Pupils are equal, round, and reactive to light. Neck: Supple with no cervical lymphadenopathy Heart: irregular rate without murmur, rub, or gallop. Lungs: diffuse crackles Abdomen: No external sign of injury. Bowel sounds are present. Abdomen is soft, nontender. No rebound, no guarding, no rigidity. There are no palpable masses. There is no flank pain on exam. Extremities: Strong peripheral pulses. There is no clubbing, no cyanosis, and no edema. Skin: No rash. Neurologic: Cranial nerves II-XII intact without motor, sensory, deficits. laboratory and microbiology Laboratory Tests 12/09/24 04:56 Test 12/09/24 04:56 Range/Units Serum Glucose 117 H 74-106 mg/dL Microbiology Date/Time Source Procedure Growth Status 12/05/24 23:14 Nose MRSA Screen - Final Complete 12/05/24 20:48 Voided Urine Urine Culture - Final Complete 12/05/24 00:35 Blood Blood Culture - Preliminary NO GROWTH AFTER 72 HOURS OF INCUBATION. Resulted Labs and/or images reviewed: Labs reviewed by me, Image(s) reviewed by me Problem List/Assessment/Plan Problem List/Assessment/Plan #Sepsis due to pneumonia gram (+) vs gram (-), vs atypicals #Pleural effusion, bilateral status post left thoracentesis #Lactic acidosis #AFib with RVR #MARQUISE due to VMN #NSTEMI type 2 #Microcytic anemia # COPD exacerbation #Recent GI bleed for which Plavix was discontinued (06/2024) #History of hypertension #Hyperlipidemia #Coronary artery disease S/P PCI X3 #Peripheral vascular disease, History of vascular bypass and femoral artery #History of GERD #Hypothyroidism #Cachexia, BMI: 18.9 #Current smoker #Vitamin D deficiency Plan: Continue Zosyn and doxycycline IV Therapeutic Lovenox Continue vitamin D 50,000 qweek pending urine cx so far no growth, blood cx so far no growth, sputum cx lasix 20mg iv qd Continue amiodarone IV, we will try to titrate down Continue metoprolol 50mg po bid Continue on NC, maintain an oxygen saturation between 88-92% head ct was unremarkable swallow eval passed, puree diet ordered bilateral hip xray PUD prophylaxis: pantoprazole Goal of care discussed for more than 30 minute, full code Has a family meeting which we discussed patient current status, hospice discussion was done, as well as code status. Patient remains full code. Critical care time spent over 90 minutes Case and plan discussed with Dr. Judd Plan discussed with: Patient, Other (RN) My Orders My Orders Orders - MELIZA GUZMÁN RESIDENT Procedure Category Date Status Time Stool Occult Blood LAB 12/08/24 Logged 08:04 Glucose Blood PHA 12/08/24 In Process (Accu-Chek Comfort 11:30 Insulin R (Human) PHA 12/08/24 In Process (Insulin R) 11:30 Dextrose 50% Syringe PHA 12/08/24 In Process 08:15 Nutritional PHA 3/16/25 In Process Supplements (Ensure 12:00 Metoprolol Tartrate PHA 12/08/24 In Process Tablet (Lopressor Ta 10:15 Chest Portable XY 12/09/24 Resulted 04:00 Full Code ELIA 12/08/24 In Process 10:20 Code Status CODE 12/08/24 Transmitted 10:20 Chest Portable XY 12/08/24 Resulted 12:14 Furosemide Injection PHA 12/09/24 Logged (Lasix Injection) 10:00 Hydrocortisone PHA 12/09/24 Logged Succinate Inj 10:00 Pantoprazole PHA 12/09/24 Logged (Protonix) 10:00 Dietary Evaluation Review Recommendations by RD: Increase Calorie Intake, Protein Supplementation Comments: 1) Initiate Ensure clear tid. Promote optimal PO intake 2) Advance to 60g [facility] cardiac diet when medically feasible, pending CORPORATE LAW SPECIALIST approval. When diet advances, switch Ensure Clear to Ensure Enlive tid 3) Refer to outpatient RD/CDCES for weight gain 4) F/u with pulmonology, cardiology, and gastroenterology Expected Outcomes/Goals: 1) appetite and labs to improve 2) diet to advance 3) f/u in 3 days Date of Service: Dec 09, 2024 Billing Provider: DAISY JUDD MD Common Visit Codes: [id number] CARE 30-74 MIN MELIZA GUZMÁN RESIDENT Dec 09, 2024 07:18 DAISY JUDD MD Dec 10, 2024 17:25
[2024-12-09] MEDS: METOPROLOL TARTRATE 25 MG TAB PO SCH (10:00)
[2024-12-09] MEDS: MORPHINE SULFATE INJ 2 MG/ml SYRG IV ONE (10:15)
--- NOTE | 2024-12-09 11:02 | DVH ---
CT HEAD WITHOUT CONTRAST INDICATION: [facility] EXAM DATE: 12/09/2024 10:15 AM COMPARISON: CT HEAD WITHOUT CONTRAST on DOS: 04/05/24, CT HEAD WITHOUT CONTRAST on DOS: 06/27/23 RADIATION DOSE: CTDIvol: 54 mGy, DLP: 863 mGy*cm PROCEDURE: CT scans of the head were obtained from the vertex to the skull base. Sagittal and coronal reconstructions were provided. All CT scans at this medical facility are performed using dose modulation techniques as appropriate t o a performed exam including the following: Automated exposure control was utilized; adjustment of th e MA and/or KV according to patient size; and use of iterative reconstruction technique. FINDINGS: There is sulcal and ventricular prominence. The brain otherwise shows normal morphology an d hare-white matter differentiation, without intracranial hemorrhage, extra-axial fluid collection, m ass effect or acute large vessel infarct. The ventricles are normal in size. The basal cisterns are p atent. The skull and visible facial bones are intact. Right maxillary sinus fluid is seen. The other paranasal sinuses, mastoid air cells and middle ear cavities are well-aerated. The soft tissues of th e scalp are unremarkable. IMPRESSION: Moderate to severe cerebral atrophy with nonspecific white matter changes. No acute intracranial abnormality.
[2024-12-09] MEDS: FUROSEMIDE 20 MG/2 ML VIAL IV SCH (11:07)
[2024-12-09] MEDS: PANTOPRAZOLE 40 MG/10 ML VIAL INJ IV SCH (11:07)
[2024-12-09] MEDS: HYDROCORTISONE SOD SUCC 100 MG/2ML INJ VIAL IV SCH (12:26)
--- NOTE | 2024-12-09 14:41 | ECG ---
[facility] Test Date: 2024-12-08 Test Time: 03:36:46 Pat Name: JAVIER KOHLI Department: Room: 0265D A Gender: F Production Planning Supervisor: JAIME : 1940 Requested By: JANICE NATARAJAN Order Number: [id number] Reading MD: Reuben Alanis Measurements Intervals [place] Rate: 125 P: 0 MN: 0 QRS: 84 QRSD: 88 T: 255 QT: 373 QTc: 538 Interpretive Statements Atrial fibrillation Ventricular premature complex Borderline right axis deviation Repol abnrm suggests ischemia, diffuse leads Prolonged QT interval Electronically Signed On 12-09-2024 19:05:53 PDT by Reuben Alanis Please click the below link to view image of tracing.
[2024-12-09] MEDS ORDERED: HYDROcodone-ACET 5/325MG TAB PO PRN (17:15)
[2024-12-09 18:56] LABS: Alanine Aminotransferase 16 U/L (7-40); Albumin 3.3 g/dL (3.2-4.8); Alkaline Phosphatase 71 U/L (46-116); Anion Gap 7 (5-15); Aspartate Aminotransferase 20 U/L (13-40); BUN/Creatinine Ratio 24.1 (10.0-20.0); Blood Urea Nitrogen 19 mg/dL (9-23); Carbon Dioxide 29 mmol/L (20-31); Potassium 3.8 mmol/L (3.5-5.1); Total Protein 5.8 g/dL (5.7-8.2)
[2024-12-09 18:57] LABS: Bilirubin, Total 0.3 mg/dL (0.2-1.0); Chloride 113 mmol/L (98-107); Glucose 152 mg/dL (74-106); Sodium 149 mmol/L (136-145)
[2024-12-09] MEDS: ENOXAPARIN SOD 60 MG/0.6 ML SYRINGE SC SCH (21:17)
[2024-12-10] VITALS (34 sets, daily range): BP systolic 105–139; BP diastolic 51–75; PULSE 89–142; RESP 14–30; TEMP 98–99.8; O2SAT 91–100
[2024-12-10 05:21] LABS: Anion Gap 10 (5-15); Carbon Dioxide 30 mmol/L (20-31)
[2024-12-10 05:22] LABS: Calcium 9.2 mg/dL (8.7-10.4)
[2024-12-10 05:25] LABS: Hemoglobin 9.1 g/dL (12.2-16.2); Red Blood Cells 4.03 10^6/uL (4.0-5.20)
[2024-12-10 05:27] LABS: BUN/Creatinine Ratio 26.4 (10.0-20.0); Chloride 113 mmol/L (98-107); Glucose 132 mg/dL (74-106); Sodium 153 mmol/L (136-145)
[2024-12-10 05:28] LABS: Hematocrit 28.6 % (36.0-46.0); Magnesium 1.8 mg/dL (1.6-2.6); Mean Corpuscular Hemoglobin 22.6 pg (28.0-32.0); Mean Corpuscular Hgb Conc. 31.9 g/dL (32.0-36.0); Platelet Count (auto) 273 10^3/uL (140-450); Red Cell Distribution Width 18.5 % (11.8-14.3); White Blood Cell 19.5 10^3/uL (4.4-10.8)
[2024-12-10 05:36] LABS: Blood Urea Nitrogen 24 mg/dL (9-23)
[2024-12-10 05:38] LABS: Basophils % (manual) 0 (0.0-2.0); Blast Cells 0; Eosinophils % (manual) 0 (0-7); Promyelocytes % 0; Reactive Lymphocytes 0
[2024-12-10] MEDS: POTASSIUM CHL 20MEQ/50ML 50 ML IV SCH (06:14)
[2024-12-10 06:32] LABS: Band Neutrophils % (manual) 2; Lymphocytes % (manual) 4 (10.0-50.0); Metamyelocytes % 1; Monocytes % (manual) 2 (0-12); Myelocytes % 1
[2024-12-10 06:33] LABS: Hypochromia Slight; Platelet Estimate Adequate
--- NOTE | 2024-12-10 07:35 | DVHPNRES ---
Progress Note Date Seen: Dec 10, 2024 Resident Creating Document: MELIZA GUZMÁN RESIDENT Medical Necessity Reason Pt with a Central, PICC or Fol: No The following are medically ne: Issa Catheter Subjective Review of Systems On my assessment,patient continues to be altered, head ct only shows chronic changes. He is currently on NC 3 L saturating at 91%. Afib HR 100-110s Family at bedside. Objective vital signs Vital Sign Date Time Temp Pulse Resp B/P (MAP) Pulse Ox O2 Delivery O2 Flow Rate FiO2 12/10/24 06:59 99 Nasal Cannula* 3 32 12/10/24 06:59 117 20 12/10/24 06:00 139/66 (90) 12/10/24 04:00 99.2 99.2 Total Intake and Output 12/09/24 12/09/24 12/10/24 15:00 23:00 07:00 Intake Total 601.64 ml 416.64 ml 399.98 ml Output Total 1150 ml 550 ml Balance 601.64 ml -733.36 ml -150.02 ml medications Current Medications Medications Dose Ordered Sig/Felipe Route Start Time Stop Time Status Last Admin Dose Admin Morphine Sulfate 1 mg Q6HP PRN IV 12/05/24 02:15 12/09/24 10:21 1 MG Nitroglycerin 0.4 mg Q5MINP PRN SL 12/05/24 03:15 Doxycycline Hyclate 100 ml @ 50 mls/hr Q12H IV 12/05/24 16:00 12/10/24 03:39 50 MLS/HR Piperacillin Sod/ Tazobactam Sod 100 ml @ 25 mls/hr Q12HR IV 12/05/24 22:00 12/09/24 21:16 25 MLS/HR Ergocalciferol 50,000 unit Q7D PO 12/05/24 11:00 12/05/24 14:34 50,000 UNIT Levalbuterol HCl 0.625 mg Q4HWA NEB 12/06/24 06:00 12/10/24 06:59 0.625 MG Ipratropium [place] 0.5 mg Q4HWA NEB 12/06/24 06:00 12/10/24 06:59 0.5 MG Nicotine 1 patch DAILY TD 12/07/24 10:00 12/09/24 11:10 1 PATCH Sodium Chloride 10 ml QSHIFT@10,22 IV 12/07/24 22:00 12/09/24 20:05 10 ML Diagnostic Test (Pha) 1 strip ACHS 12/08/24 11:30 12/10/24 06:50 1 STRIP Insulin Human Regular ACHS SC 12/08/24 11:30 12/09/24 21:20 2 UNITS Dextrose 50 ml UD PRN IV 12/08/24 08:15 Enteral Nutritional Formula 240 ml TIDWM PO 12/08/24 12:00 12/09/24 10:58 240 ML Furosemide 20 mg DAILY IV 12/09/24 10:00 12/09/24 11:07 20 MG Hydrocortisone Sodium Succinate 100 mg DAILY IV 12/09/24 10:00 12/09/24 12:26 100 MG Pantoprazole Sodium 40 mg DAILY IV 12/09/24 10:00 12/09/24 11:07 40 MG Metoprolol Tartrate 75 mg BID PO 12/09/24 10:00 12/09/24 21:17 75 MG Enoxaparin Sodium 50 mg Q12HR SC 12/09/24 22:00 12/09/24 21:17 50 MG Acetaminophen/ Hydrocodone Bitart 1 tab Q6HPRN PRN PO 12/09/24 17:15 Potassium Chloride 50 ml @ 25 mls/hr Q2H IV 12/10/24 06:30 12/10/24 14:29 12/10/24 06:14 25 MLS/HR Examination General: Awake, A&Ox1 in moderate distress due to SOB HEENT: Head is normocephalic and atraumatic. Pupils are equal, round, and reactive to light. Neck: Supple with no cervical lymphadenopathy Heart: irregular rate without murmur, rub, or gallop. Lungs: diffuse crackles Abdomen: No external sign of injury. Bowel sounds are present. Abdomen is soft, nontender. No rebound, no guarding, no rigidity. There are no palpable masses. There is no flank pain on exam. Extremities: Strong peripheral pulses. There is no clubbing, no cyanosis, and no edema. Skin: No rash. Neurologic: Cranial nerves II-XII intact without motor, sensory, deficits. laboratory and microbiology Laboratory Tests 12/10/24 04:45 Test 12/10/24 04:45 Range/Units Serum Glucose 132 H 74-106 mg/dL Microbiology Date/Time Source Procedure Growth Status 12/08/24 12:00 Pleural Fluid Gram Stain Pending Resulted 12/08/24 12:00 Pleural Fluid Body Fluid Culture - Preliminary Resulted 12/05/24 23:14 Nose MRSA Screen - Final Complete 12/05/24 20:48 Voided Urine Urine Culture - Final Complete 12/05/24 00:35 Blood Blood Culture - Final NO GROWTH AFTER 5 DAYS OF INCUBATION. Complete Labs and/or images reviewed: Labs reviewed by me, Image(s) reviewed by me Problem List/Assessment/Plan Problem List/Assessment/Plan #Metabolic encephalopathy due to Sepsis due to pneumonia gram (+) vs gram (-), vs atypicals #Pleural effusion, bilateral status post left thoracentesis #Lactic acidosis #AFib with RVR #MARQUISE due to VMN #NSTEMI type 2 #Microcytic anemia # COPD exacerbation #Recent GI bleed for which Plavix was discontinued (06/2024) #History of hypertension #Hyperlipidemia #Coronary artery disease S/P PCI X3 #Peripheral vascular disease, History of vascular bypass and femoral artery #History of GERD #Hypothyroidism #Cachexia, BMI: 18.9 #Current smoker #Vitamin D deficiency #hypernatremia # constipation Plan: Continue Zosyn and doxycycline IV Therapeutic Lovenox Continue vitamin D 50,000 qweek pending urine cx so far no growth, blood cx so far no growth, sputum cx Pending culture from thoracentesis lasix 20mg iv qd Continue amiodarone IV, we will try to titrate down, currently at 0.5 Continue metoprolol 100mg po bid Continue on NC, maintain an oxygen saturation between 88-92% head ct was unremarkable Continue puree diet ordered bilateral hip xray, no acute fracture or dislocation ordered kub, show significant stool burden CT of the abdomen revealed significant stool burden, no acute abnormalities d5w 75ml/hr Possible downgrade to telemetry tomorrow PUD prophylaxis: pantoprazole Goal of care discussed for more than 30 minute, full code We had a family meeting which we discussed patient current status, hospice discussion was done, as well as code status. Patient is now DNR/DNI Critical care time spent over 90 minutes Case and plan discussed with Dr. Judd Plan discussed with: Daughter, Other (RN) My Orders My Orders Orders - MELIZA GUZMÁN RESIDENT Procedure Category Date Status Time Head Without Contrast CT 12/09/24 Resulted 09:06 Pureed DIET 12/09/24 Transmitted Breakfast Metoprolol Tartrate PHA 12/09/24 In Process Tablet (Lopressor Ta 10:00 * Swallow Request ST 12/09/24 Transmitted 09:34 Enoxaparin Sodium PHA 12/09/24 In Process (Lovenox) 22:00 Npo (Nothing By DIET 12/09/24 Transmitted Mouth) Diet Dinner Pureed DIET 12/09/24 Transmitted Dinner Hydrocodone-Acet PHA 12/09/24 In Process 5/325mg Tab ([place] 17:15 Electrocardigram EKG 12/09/24 Logged 18:16 L Hip Complete Xray XY 12/10/24 Logged 07:00 R Hip Complete Xray XY 12/10/24 Logged 07:00 D5w 5% (Dextrose 5%) PHA 12/10/24 Logged 07:30 Kub Abdomen Single XY 12/10/24 Logged View 07:29 Dietary Evaluation Review Recommendations by RD: Increase Calorie Intake, Protein Supplementation Comments: 1) Initiate Ensure clear tid. Promote optimal PO intake 2) Advance to 60g CCHO cardiac diet when medically feasible, pending INSERT MOLDING OPERATOR approval. When diet advances, switch Ensure Clear to Ensure Enlive tid 3) Refer to outpatient RD/CDCES for weight gain 4) F/u with pulmonology, cardiology, and gastroenterology Expected Outcomes/Goals: 1) appetite and labs to improve 2) diet to advance 3) f/u in 3 days Date of Service: Dec 10, 2024 Billing Provider: DAISY JUDD MD Common Visit Codes: [id number] CARE 30-74 MIN MELIZA GUZMÁN RESIDENT Dec 10, 2024 07:35 DAISY JUDD MD Dec 10, 2024 17:46
[2024-12-10] MEDS: AMIODARONE 360mg/200mL PREMIX 200 ML IV SCH (09:21)
[2024-12-10] MEDS: METOPROLOL TARTRATE 25 MG TAB PO ONE (09:53)
[2024-12-10] MEDS: MAGNESIUM OXIDE 400 MG TAB PO SCH (09:53)
[2024-12-10 10:56] LABS: Albumin, Body Fluid 1.6 g/dL (Not Estab.); Protein, Body Fluid 1.7 g/dL (.)
[2024-12-10 10:56] LABS: Protein, Body Fluid 2.1 g/dL (.)
--- NOTE | 2024-12-10 11:09 | DVH ---
CLINICAL INDICATION: HIP PAIN TECHNIQUE: XY R HIP COMPLETE XRAY, XY L HIP COMPLETE XRAY Comparison: None FINDINGS/IMPRESSION: : There is no evidence of acute fracture or dislocation. Moderate volume stool in the rectum. Osteopenia. Moderate to severe degenerative changes of bilateral hips.
--- NOTE | 2024-12-10 12:03 | DVH ---
Date: 12/10/2024 10:18 AM Examination: XY KUB ABDOMEN SINGLE VIEW History: abdominal pain, constipation Comparison: None TECHNIQUE: Frontal views of the abdomen was obtained. FINDINGS: Gaseous distended loops of small bowel and colon with significant large stool burden in the colon. The lung bases are unremarkable. No acute osseous abnormality identified. IMPRESSION: Gaseous distended loops of small bowel and colon with significant large stool burden in the colon.
--- NOTE | 2024-12-10 12:53 | DVH ---
Exam: CT CT AB PEL WO CON-NO ORAL OR IV History: abdominal distention, and pain Comparison Study: None Technique: Multidetector spiral CT of the abdomen was performed from lung bases to pubic symphysis. I maging was performed without IV contrast. Axial, coronal and sagittal multiplanar reformats were obta ined from the axial data set by the technologist. Radiation Dose : 1. Abdomen/Pelvis: CTDIvol 5.3 mGy, DLP 289.71 mGy*cm. Findings: Evaluation of solid organs is limited due to lack of intravenous contrast use. Lung Bases: Cardiomegaly. Coronary artery calcifications. Vascular calcifications of the aorta. Multi focal airspace disease. Small bilateral pleural effusions. Liver: The liver is normal in size. No focal lesions. Gallbladder and Biliary Tree: Unremarkable Spleen: Unremarkable Pancreas: The pancreas is grossly normal in appearance. Adrenal Glands: Unremarkable Kidneys: Kidneys are grossly normal without calculi or hydronephrosis. Bladder: Bladder is decompressed with a Issa catheter and cannot be adequately assessed. Bowel: The stomach is grossly normal in appearance. Diverticulosis. Large volume colonic stool. The appendix is not visualized; however, no secondary findings of acute appendicitis identified. Ascites: Absent Lymphadenopathy: No mesenteric, retroperitoneal or periportal lymphadenopathy. Abdominal Wall and Mesentery: Unremarkable. Vasculature: The visualized abdominal aorta is normal in size and caliber. There is extensive athero sclerotic calcification of the aorta and its branches. Evaluation of abdominal and pelvic vessels is limited due to lack of intravenous contrast. Pelvic Organs: Unremarkable Musculoskeletal: No aggressive focal bony lesions, acute fractures or dislocation. IMPRESSION: Large volume colonic stool. Radiation optimization: All CT scans at this facility use at least one of these dose optimization claudia hniques: automated exposure control mA and/or kV adjustment per patient size (includes targeted exam s where dose is matched to clinical indication) or iterative reconstruction.
[2024-12-10] MEDS ORDERED: LACTULOSE 20Gm/30ML SOLN PO ONE (13:15)
[2024-12-10] MEDS ORDERED: BISACODYL 5 MG EC TAB PO ONE (13:15)
--- NOTE | 2024-12-10 14:26 | ECG ---
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
[2024-12-10] MEDS: D5W 5% 1,000 ML IV ONE (17:51)
[2024-12-10 20:18] LABS: Potassium 3.9 mmol/L (3.5-5.1)
[2024-12-10] MEDS: METOPROLOL TARTRATE 50 MG TAB PO SCH (22:15)
[2024-12-11] VITALS (27 sets, daily range): BP systolic 111–154; BP diastolic 51–97; PULSE 86–141; RESP 15–32; TEMP 97.3–99.5; O2SAT 89–100
[2024-12-11 05:11] LABS: Hematocrit 28.6 % (36.0-46.0); Hemoglobin 8.7 g/dL (12.2-16.2); Mean Corpuscular Hemoglobin 22.4 pg (28.0-32.0); Mean Corpuscular Hgb Conc. 30.5 g/dL (32.0-36.0); Mean Corpuscular Volume 73.6 fL (80.0-100.0); Platelet Count (auto) 248 10^3/uL (140-450); Red Blood Cells 3.88 10^6/uL (4.0-5.20); Red Cell Distribution Width 19.3 % (11.8-14.3); White Blood Cell 20.7 10^3/uL (4.4-10.8)
[2024-12-11 05:14] LABS: Potassium 3.8 mmol/L (3.5-5.1)
[2024-12-11 05:15] LABS: Anion Gap 8 (5-15); Carbon Dioxide 29 mmol/L (20-31)
[2024-12-11 05:16] LABS: Band Neutrophils % (manual) 0; Basophils % (manual) 0 (0.0-2.0); Blast Cells 0; Eosinophils % (manual) 0 (0-7); Metamyelocytes % 0; Myelocytes % 0; Promyelocytes % 0; Reactive Lymphocytes 0
--- NOTE | 2024-12-11 05:16 | DVH ---
EXAM: XR Chest, 1 View CLINICAL INDICATION: sob TECHNIQUE: Frontal view of the chest. COMPARISON: XY CHEST PORTABLE on DOS: 12/09/24, XY CHEST PORTABLE on DOS: 12/08/24, XY CHEST PORTABLE on DOS: 12/07/24, XY CHEST PORTABLE on DOS: 12/07/24, XY CHEST PORTABLE on DOS: 12/06/24 FINDINGS: LUNGS AND PLEURAL SPACES: Improving interstitial and patchy airspace disease in both lungs. No con solidation. No pneumothorax. HEART: Unremarkable. No cardiomegaly. MEDIASTINUM: Unremarkable. Normal mediastinal contour. BONES/JOINTS: Unremarkable. No acute fracture. TUBES, LINES AND DEVICES: Right peripherally inserted central catheter (PICC) tip in the superior v zoltan cava. OTHER FINDINGS: . IMPRESSION: Improving interstitial and patchy airspace disease in both lungs.
[2024-12-11 05:20] LABS: BUN/Creatinine Ratio 36.8 (10.0-20.0)
[2024-12-11 05:22] LABS: Blood Urea Nitrogen 28 mg/dL (9-23); Chloride 115 mmol/L (98-107); Glucose 116 mg/dL (74-106); Sodium 152 mmol/L (136-145)
[2024-12-11 06:50] LABS: Hypochromia Moderate; Lymphocytes % (manual) 5 (10.0-50.0); Monocytes % (manual) 2 (0-12); Platelet Estimate Adequate
[2024-12-11] MEDS ORDERED: MEROPENEM 1GM IVPB 50 ML IV SCH (07:45)
[2024-12-11] MEDS: D5W 5% 1,000 ML IV ONE (08:04)
[2024-12-11] MEDS ORDERED: PIPERACILLIN-TAZOB 3.375GM 100 ML IV SCH (08:45)
[2024-12-11] MEDS ORDERED: IRON SUCROSE COMPLEX 110 ML IV SCH (08:45)
[2024-12-11] MEDS ORDERED: Ensure HIGH Protein Chocolate 8oz Bottle PO SCH (08:45)
[2024-12-11] MEDS ORDERED: ENOXAPARIN SOD 100 MG/1 ML SYRINGE SC SCH (08:45)
[2024-12-11] MEDS ORDERED: ENOXAPARIN SOD 30 MG/0.3 ML SYRINGE SC SCH (08:45)
[2024-12-11] MEDS: HYDROCORTISONE SOD SUCC 100 MG/2ML INJ VIAL IV SCH (09:06)
[2024-12-11] MEDS: POTASSIUM EFFERVESENT TAB 25 MEQ PO ONE (09:10)
[2024-12-11] MEDS: MEROPENEM 1GM IVPB 50 ML IV SCH (09:30)
[2024-12-11] MEDS: NICOTINE 14 MG/24HR TOPICAL PATCH TD ONE (09:43)
[2024-12-11] MEDS: POTASSIUM CHL 20 Meq TABLET PO ONE (11:30)
--- NOTE | 2024-12-11 11:31 | DVHPNRES ---
Progress Note Date Seen: Dec 11, 2024 Resident Creating Document: MELIZA GUZMÁN RESIDENT Medical Necessity Reason Pt with a Central, PICC or Fol: No The following are medically ne: Issa Catheter Subjective Review of Systems On my assessment, patient continues to be altered, following commands. She is currently on NC 3 L saturating at 91%. Afib HR 100-120s Family at bedside. Objective vital signs Vital Sign Date Time Temp Pulse Resp B/P (MAP) Pulse Ox O2 Delivery O2 Flow Rate FiO2 12/11/24 10:02 119 18 96 12/11/24 09:07 135/74 12/11/24 06:45 Nasal Cannula* 3 32 12/11/24 04:00 98.4 98.4 Total Intake and Output 12/10/24 12/10/24 12/11/24 15:00 23:00 07:00 Intake Total 366.62 ml 983.28 ml 666.62 ml Output Total 650 ml 550 ml Balance 366.62 ml 333.28 ml 116.62 ml medications Current Medications Medications Dose Ordered Sig/Felipe Route Start Time Stop Time Status Last Admin Dose Admin Morphine Sulfate 1 mg Q6HP PRN IV 12/05/24 02:15 12/11/24 03:03 1 MG Nitroglycerin 0.4 mg Q5MINP PRN SL 12/05/24 03:15 Doxycycline Hyclate 100 ml @ 50 mls/hr Q12H IV 12/05/24 16:00 12/11/24 04:21 50 MLS/HR Ergocalciferol 50,000 unit Q7D PO 12/05/24 11:00 12/05/24 14:34 50,000 UNIT Levalbuterol HCl 0.625 mg Q4HWA NEB 12/06/24 06:00 12/11/24 10:02 0.625 MG Ipratropium [place] 0.5 mg Q4HWA NEB 12/06/24 06:00 12/11/24 10:02 0.5 MG Nicotine 1 patch DAILY TD 12/07/24 10:00 12/11/24 09:43 1 PATCH Sodium Chloride 10 ml QSHIFT@10,22 IV 12/07/24 22:00 12/11/24 09:04 10 ML Diagnostic Test (Pha) 1 strip ACHS 12/08/24 11:30 12/11/24 06:46 1 STRIP Insulin Human Regular ACHS SC 12/08/24 11:30 12/10/24 22:19 3 UNITS Dextrose 50 ml UD PRN IV 12/08/24 08:15 Enteral Nutritional Formula 240 ml TIDWM PO 12/08/24 12:00 12/10/24 18:50 240 ML Furosemide 20 mg DAILY IV 12/09/24 10:00 12/11/24 09:05 20 MG Pantoprazole Sodium 40 mg DAILY IV 12/09/24 10:00 12/11/24 09:04 40 MG Enoxaparin Sodium 50 mg Q12HR SC 12/09/24 22:00 12/11/24 09:05 50 MG Acetaminophen/ Hydrocodone Bitart 1 tab Q6HPRN PRN PO 12/09/24 17:15 Metoprolol Tartrate 100 mg BID PO 12/10/24 22:00 12/11/24 09:07 100 MG Magnesium Oxide 400 mg BID PO 12/10/24 10:00 12/11/24 09:07 400 MG Hydrocortisone Sodium Succinate 50 mg DAILY IV 12/11/24 10:00 12/11/24 09:06 50 MG Meropenem 50 ml @ 17 mls/hr Q12HR IV 12/11/24 10:00 12/11/24 09:30 17 MLS/HR Enoxaparin Sodium 40 mg DAILY SC 12/11/24 08:45 UNV Enteral Nutritional Formula 240 ml BIDWM PO 12/11/24 08:45 UNV Iron Sucrose 110 ml @ 110 mls/hr DAILY@1200 IV 12/11/24 08:45 UNV Piperacillin Sod/ Tazobactam Sod 100 ml @ 25 mls/hr Q12HR IV 12/11/24 08:45 UNV Enoxaparin Sodium 30 mg DAILY SC 12/11/24 08:45 UNV Examination General: Awake, A&Ox1 in moderate distress due to SOB HEENT: Head is normocephalic and atraumatic. Pupils are equal, round, and reactive to light. Neck: Supple with no cervical lymphadenopathy Heart: irregular rate without murmur, rub, or gallop. Lungs: diffuse crackles Abdomen: No external sign of injury. Bowel sounds are present. Abdomen is soft, nontender. No rebound, no guarding, no rigidity. There are no palpable masses. There is no flank pain on exam. Extremities: Strong peripheral pulses. There is no clubbing, no cyanosis, and no edema. Skin: No rash. Neurologic: Cranial nerves II-XII intact without motor, sensory, deficits. laboratory and microbiology Laboratory Tests 12/11/24 04:42 Test 12/11/24 04:42 Range/Units Serum Glucose 116 H 74-106 mg/dL Microbiology Date/Time Source Procedure Growth Status 12/08/24 12:00 Pleural Fluid Gram Stain - Final Resulted 12/08/24 12:00 Pleural Fluid Body Fluid Culture - Preliminary Resulted 12/05/24 23:14 Nose MRSA Screen - Final Complete 12/05/24 20:48 Voided Urine Urine Culture - Final Complete 12/05/24 00:35 Blood Blood Culture - Final NO GROWTH AFTER 5 DAYS OF INCUBATION. Complete Labs and/or images reviewed: Labs reviewed by me, Image(s) reviewed by me Problem List/Assessment/Plan Problem List/Assessment/Plan #Metabolic encephalopathy due to Sepsis due to pneumonia gram (+) vs gram (-), vs atypicals #Pleural effusion, bilateral status post left thoracentesis #Lactic acidosis #AFib with RVR #MARQUISE due to VMN #NSTEMI type 2 #Microcytic anemia # COPD exacerbation #Recent GI bleed for which Plavix was discontinued (06/2024) #History of hypertension #Hyperlipidemia #Coronary artery disease S/P PCI X3 #Peripheral vascular disease, History of vascular bypass and femoral artery #History of GERD #Hypothyroidism #Cachexia, BMI: 18.9 #Current smoker #Vitamin D deficiency #hypernatremia # constipation Plan: Continue Merrem and dc doxycycline IV Therapeutic Lovenox Continue vitamin D 50,000 qweek pending urine cx so far no growth, blood cx so far no growth, sputum cx Pending culture from thoracentesis lasix 20mg iv qd Continue amiodarone IV, we will try to titrate down, currently at 0.5 DC metoprolol 100mg po bid Continue diltiazem IR, 30mg po qid, and titrate up as tolerated Continue on NC, maintain an oxygen saturation between 88-92% head ct was unremarkable Continue puree diet CT of the abdomen revealed significant stool burden, no acute abnormalities. Patient had a BM on 12/11/23 d5w 75ml/hr downgrade to telemetry with sitter today PUD prophylaxis: pantoprazole Goal of care discussed for more than 30 minute, full code We had a family meeting which we discussed patient current status, hospice discussion was done, as well as code status. Patient is now DNR/DNI Critical care time spent over 50 minutes Case and plan discussed with Dr. Judd Plan discussed with: Patient, Other (RN) My Orders My Orders Orders - MELIZA GUZMÁN RESIDENT Procedure Category Date Status Time Chest Portable XY 12/11/24 Resulted 04:00 Code Status CODE 12/10/24 Transmitted 16:51 D5w 5% (Dextrose 5%) PHA 12/11/24 In Process 07:45 Hydrocortisone PHA 12/11/24 In Process Succinate Inj 10:00 Meropenem 1gm Ivpb PHA 12/11/24 In Process (Merrem 1gm/ Ns) 10:00 Urinalysis LAB 12/11/24 Logged 09:21 Urine Bacterial AFSHAN 12/11/24 Logged Culture 09:21 Blood Culture AFSHAN 12/11/24 Logged 09:21 Diltiazem Immediate PHA 12/11/24 Transmitted Releas Tab (Cardizem 16:00 Potassium Er Tablet PHA 12/11/24 Transmitted (Klor-Con Tablet) 11:30 Dietary Evaluation Review Recommendations by RD: Increase Calorie Intake, Protein Supplementation Comments: 1) Initiate Ensure clear tid. Promote optimal PO intake 2) Advance to 60g [facility] cardiac diet when medically feasible, pending S[employer] E[employer] REPAIRER approval. When diet advances, switch Ensure Clear to Ensure Enlive tid 3) Refer to outpatient RD/CDCES for weight gain 4) F/u with pulmonology, cardiology, and gastroenterology Expected Outcomes/Goals: 1) appetite and labs to improve 2) diet to advance 3) f/u in 3 days Date of Service: Dec 11, 2024 Billing Provider: DAISY JUDD MD Common Visit Codes: [id number] INP/OBS CARE(HIGH) MELIZA GUZMÁN RESIDENT Dec 11, 2024 11:31 DAISY JUDD MD Dec 11, 2024 17:28
[2024-12-11 12:27] LABS: Urine Bacteria None Seen /hpf (None Seen)
[2024-12-11] MEDS: MAGNESIUM SULFATE 1GM/100ML 100 ML IV ONE (12:33)
[2024-12-11 12:54] LABS: Urine Blood Negative /uL (Negative); Urine Budding Yeast MODERATE /hpf (None Seen); Urine Clarity Clear (Clear); Urine Color Colorless (Yellow); Urine Protein, UAD Negative (Negative); Urine Specific Gravity 1.009 (1.001-1.035); Urine Squamous Epithelial Cell FEW /hpf (<5); Urine Urobilinogen Normal (Negative); Urine WBC 3 /HPF (0-5)
[2024-12-11] MEDS: POTASSIUM CHLORIDE 20 MEQ in D5W 5% 1,000 ML IV ONE (15:45)
[2024-12-11] MEDS: dilTIAZem HCL 60 MG TAB PO SCH (16:24)
[2024-12-11] MEDS: LEVALBUTEROL HCL 1.25 MG/3 ML NEB NEB SCH (18:01)
[2024-12-11] MEDS: IPRATROPIUM BROM 0.5 MG/2.5ML INH SOL NEB SCH (18:01)
[2024-12-12] VITALS (15 sets, daily range): BP systolic 103–131; BP diastolic 48–73; PULSE 82–126; RESP 18–22; TEMP 97.7–98.9; O2SAT 95–99
[2024-12-12 05:12] LABS: Hemoglobin 9.5 g/dL (12.2-16.2); White Blood Cell 14.2 10^3/uL (4.4-10.8)
[2024-12-12 05:14] LABS: Hematocrit 31.7 % (36.0-46.0); Mean Corpuscular Hemoglobin 22.2 pg (28.0-32.0); Mean Corpuscular Volume 74.1 fL (80.0-100.0); Platelet Count (auto) 297 10^3/uL (140-450); Red Blood Cells 4.28 10^6/uL (4.0-5.20); Red Cell Distribution Width 19.7 % (11.8-14.3)
[2024-12-12 05:19] LABS: Anion Gap 6 (5-15); Potassium 3.8 mmol/L (3.5-5.1)
[2024-12-12 05:20] LABS: Calcium 8.9 mg/dL (8.7-10.4)
[2024-12-12 05:24] LABS: Band Neutrophils % (manual) 0; Basophils % (manual) 0 (0.0-2.0); Blast Cells 0; Eosinophils % (manual) 0 (0-7); Metamyelocytes % 0; Myelocytes % 0; Promyelocytes % 0; Reactive Lymphocytes 0
[2024-12-12 05:25] LABS: BUN/Creatinine Ratio 33.9 (10.0-20.0); Blood Urea Nitrogen 21 mg/dL (9-23); Magnesium 2.2 mg/dL (1.6-2.6)
[2024-12-12 05:32] LABS: Carbon Dioxide 32 mmol/L (20-31); Chloride 113 mmol/L (98-107); Glucose 126 mg/dL (74-106); Sodium 151 mmol/L (136-145)
--- NOTE | 2024-12-12 06:35 | DVHPNRES ---
Progress Note Date Seen: Dec 12, 2024 Resident Creating Document: MELIZA GUZMÁN RESIDENT Medical Necessity Reason Pt with a Central, PICC or Fol: No The following are medically ne: Issa Catheter Subjective Review of Systems On my assessment, patient continues to be altered, following commands. She is currently on NC 3 L saturating at 91%. Afib HR 100-110s Family at bedside. Objective vital signs Vital Sign Date Time Temp Pulse Resp B/P (MAP) Pulse Ox O2 Delivery O2 Flow Rate FiO2 12/12/24 05:13 105 131/75 12/12/24 05:00 98.1 20 95 98.1 12/11/24 20:00 Nasal Cannula* 3 32 Total Intake and Output 12/11/24 12/11/24 12/12/24 15:00 23:00 07:00 Intake Total 50 ml 550 ml Output Total 750 ml 250 ml 950 ml Balance -750 ml -200 ml -400 ml medications Current Medications Medications Dose Ordered Sig/Felipe Route Start Time Stop Time Status Last Admin Dose Admin Morphine Sulfate 1 mg Q6HP PRN IV 12/05/24 02:15 12/11/24 17:34 1 MG Nitroglycerin 0.4 mg Q5MINP PRN SL 12/05/24 03:15 Ergocalciferol 50,000 unit Q7D PO 12/05/24 11:00 12/05/24 14:34 50,000 UNIT Nicotine 1 patch DAILY TD 12/07/24 10:00 12/11/24 09:43 1 PATCH Sodium Chloride 10 ml QSHIFT@10,22 IV 12/07/24 22:00 12/11/24 21:14 10 ML Diagnostic Test (Pha) 1 strip ACHS 12/08/24 11:30 12/12/24 06:18 1 STRIP Insulin Human Regular ACHS SC 12/08/24 11:30 12/10/24 22:19 3 UNITS Dextrose 50 ml UD PRN IV 12/08/24 08:15 Enteral Nutritional Formula 240 ml TIDWM PO 12/08/24 12:00 12/11/24 18:00 240 ML Furosemide 20 mg DAILY IV 12/09/24 10:00 12/11/24 09:05 20 MG Pantoprazole Sodium 40 mg DAILY IV 12/09/24 10:00 12/11/24 09:04 40 MG Enoxaparin Sodium 50 mg Q12HR SC 12/09/24 22:00 12/11/24 21:14 50 MG Acetaminophen/ Hydrocodone Bitart 1 tab Q6HPRN PRN PO 12/09/24 17:15 Hydrocortisone Sodium Succinate 50 mg DAILY IV 12/11/24 10:00 12/11/24 09:06 50 MG Meropenem 50 ml @ 17 mls/hr Q12HR IV 12/11/24 10:00 12/11/24 21:56 17 MLS/HR Enoxaparin Sodium 40 mg DAILY SC 12/11/24 08:45 UNV Enteral Nutritional Formula 240 ml BIDWM PO 12/11/24 08:45 UNV Iron Sucrose 110 ml @ 110 mls/hr DAILY@1200 IV 12/11/24 08:45 UNV Piperacillin Sod/ Tazobactam Sod 100 ml @ 25 mls/hr Q12HR IV 12/11/24 08:45 UNV Enoxaparin Sodium 30 mg DAILY SC 12/11/24 08:45 UNV Diltiazem HCl 30 mg Q6HR PO 12/11/24 16:00 12/12/24 05:13 30 MG Ipratropium [place] 0.5 mg Q6HWA NEB 12/11/24 18:00 12/11/24 18:01 0.5 MG Levalbuterol HCl 0.625 mg Q6HWA NEB 12/11/24 18:00 12/11/24 18:01 0.625 MG Magnesium Oxide 400 mg DAILY PO 12/12/24 10:00 Examination General: Awake, A&Ox1 in moderate distress due to SOB HEENT: Head is normocephalic and atraumatic. Pupils are equal, round, and reactive to light. Neck: Supple with no cervical lymphadenopathy Heart: irregular rate without murmur, rub, or gallop. Lungs: diffuse crackles Abdomen: No external sign of injury. Bowel sounds are present. Abdomen is soft, nontender. No rebound, no guarding, no rigidity. There are no palpable masses. There is no flank pain on exam. Extremities: Strong peripheral pulses. There is no clubbing, no cyanosis, and no edema. Skin: No rash. Neurologic: Cranial nerves II-XII intact without motor, sensory, deficits. laboratory and microbiology Laboratory Tests 12/12/24 04:54 Test 12/12/24 04:54 Range/Units Serum Glucose 126 H 74-106 mg/dL Microbiology Date/Time Source Procedure Growth Status 12/08/24 12:00 Pleural Fluid Gram Stain - Final Resulted 12/08/24 12:00 Pleural Fluid Body Fluid Culture - Preliminary Resulted 12/05/24 23:14 Nose MRSA Screen - Final Complete 12/05/24 20:48 Voided Urine Urine Culture - Final Complete 12/05/24 00:35 Blood Blood Culture - Final NO GROWTH AFTER 5 DAYS OF INCUBATION. Complete Labs and/or images reviewed: Labs reviewed by me, Image(s) reviewed by me Problem List/Assessment/Plan Problem List/Assessment/Plan #Metabolic encephalopathy due to Sepsis due to pneumonia gram (+) vs gram (-), vs atypicals #Pleural effusion, bilateral status post left thoracentesis #Lactic acidosis #AFib with RVR #MARQUISE due to VMN #NSTEMI type 2 #Microcytic anemia # COPD exacerbation #Recent GI bleed for which Plavix was discontinued (06/2024) #History of hypertension #Hyperlipidemia #Coronary artery disease S/P PCI X3 #Peripheral vascular disease, History of vascular bypass and femoral artery #History of GERD #Hypothyroidism #Cachexia, BMI: 18.9 #Current smoker #Vitamin D deficiency #hypernatremia # constipation Plan: Continue Merrem Therapeutic Lovenox Continue vitamin D 50,000 qweek pending urine cx so far no growth, blood cx so far no growth, sputum cx Pending culture from thoracentesis, no growth dc lasix 20mg iv qd dc amiodarone IV, we will try to titrate down, currently at 0.5 Continue diltiazem IR, 30mg po qid, and titrate up as tolerated Continue on NC, maintain an oxygen saturation between 88-92% head ct was unremarkable Continue puree diet CT of the abdomen revealed significant stool burden, no acute abnormalities. Patient had a BM on 12/11/23 d5w K+ 50ml/hr continue telemetry with sitter consulted SS for hospice at home placement PUD prophylaxis: pantoprazole Goal of care discussed for more than 30 minute, full code We had a family meeting which we discussed patient current status, hospice discussion was done, as well as code status. Patient is now DNR/DNI Case and plan discussed with Dr. Judd Plan discussed with: Daughter, Other (RN) My Orders My Orders Orders - MELIZA GUZMÁN RESIDENT Procedure Category Date Status Time Hydrocortisone PHA 12/11/24 In Process Succinate Inj 10:00 Meropenem 1gm Ivpb PHA 12/11/24 In Process (Merrem 1gm/ Ns) 10:00 Urine Bacterial AFSHAN 12/11/24 In Process Culture 09:21 Blood Culture AFSHAN 12/11/24 In Process 09:21 Diltiazem Immediate PHA 12/11/24 In Process Releas Tab (Cardizem 16:00 Potassium Er Tablet PHA 12/11/24 In Process (Klor-Con Tablet) 11:30 Complete Blood Count LAB 12/12/24 In Process 04:00 Ipratropium Med[place] PHA 12/11/24 In Process (Atrovent Medneb) 18:00 Levalbuterol Hcl PHA 12/11/24 In Process (Xopenex Medneb) 18:00 D5w 5% (Dextrose 5%) PHA 12/11/24 In Process W/Potassium Chlorid 15:45 Pt Request For Service PT 12/11/24 Logged 15:42 * Electrical Prospector CONS 12/11/24 Transmitted Consult Manual Differential LAB 12/12/24 In Process 04:54 Magnesium Oxide PHA 12/12/24 In Process Tablet (Mag-Ox Tablet) 10:00 Dietary Evaluation Review Recommendations by RD: Increase Calorie Intake, Protein Supplementation Comments: 1) Initiate Ensure clear tid. Promote optimal PO intake 2) Advance to 60g [facility] cardiac diet when medically feasible, pending [employer] P[employer]ER approval. When diet advances, switch Ensure Clear to Ensure Enlive tid 3) Refer to outpatient RD/CDCES for weight gain 4) F/u with pulmonology, cardiology, and gastroenterology Expected Outcomes/Goals: 1) appetite and labs to improve 2) diet to advance 3) f/u in 3 days Date of Service: Dec 12, 2024 Billing Provider: DAISY JUDD MD Common Visit Codes: [id number] INP/OBS CARE(HIGH) MELIZA GUZMÁN RESIDENT Dec 12, 2024 06:35 DAISY JUDD MD Dec 12, 2024 18:30
[2024-12-12 06:57] LABS: Lymphocytes % (manual) 6 (10.0-50.0); Monocytes % (manual) 2 (0-12)
[2024-12-12 06:58] LABS: Hypochromia Slight
[2024-12-12 06:59] LABS: Platelet Estimate Adequate
[2024-12-12] MEDS: MAGNESIUM OXIDE 400 MG TAB PO SCH (09:40)
[2024-12-12] MEDS ORDERED: DILT60TA2 PO (16:05)
[2024-12-12] MEDS ORDERED: APIX2.5T PO (16:05)
[2024-12-12] MEDS ORDERED: ERGO1CAP23 PO (16:05)
[2024-12-12] MEDS ORDERED: CEFP200T15 PO (16:05)
--- NOTE | 2024-12-12 17:50 | DVHDSRES ---
Discharge Summary Date of Admission Resident Creating Document: MELIZA GUZMÁN RESIDENT Dec 05, 2024 at 03:14 Date of Discharge: Dec 12, 2024 Admitting Diagnosis metabolic encephalopathy Labs/Diagnostic Data: Laboratory Results Test 12/12/24 16:20 12/12/24 04:54 12/11/24 12:20 12/11/24 04:42 POC Glucose 134 mg/dl (70-106) White Blood Count 14.2 10^3/uL (4.4-10.8) Red Blood Count 4.28 10^6/uL (4.0-5.20) Hemoglobin 9.5 g/dL (12.2-16.2) Hematocrit 31.7 % (36.0-46.0) Mean Corpuscular Volume 74.1 fL (80.0-100.0) Mean Corpuscular Hemoglobin 22.2 pg (28.0-32.0) Mean Corpuscular Hemoglobin Concent 30.0 g/dL (32.0-36.0) Red Cell Distribution Width 19.7 % (11.8-14.3) Platelet Count 297 10^3/uL (140-450) Mean Platelet Volume 7.9 fL (6.9-10.8) Neutrophils (%) (Auto) % (37.0-80.0) Lymphocytes (%) (Auto) % (10.0-50.0) Monocytes (%) (Auto) % (0.0-12.0) Basophils (%) (Auto) % (0.0-2.0) Neutrophils # (Auto) 10 ^3/uL (1.6-8.6) Lymphocytes # (Auto) 10 ^3/uL (0.4-5.4) Monocytes # (Auto) 10 ^3/uL (0-1.3) Differential Total Cells Counted 100.0 (100) Neutrophils % (Manual) 92 (37.0-80.0) Band Neutrophils % (Manual) 0 Lymphocytes % (Manual) 6 (10.0-50.0) Monocytes % (Manual) 2 (0-12) Eosinophils % (Manual) 0 (0-7) Basophils % (Manual) 0 (0.0-2.0) Metamyelocytes % (manual) 0 Myelocytes % (Manual) 0 Promyelocytes % (Manual) 0 Blast Cells % (Manual) 0 Reactive Lymphocytes 0 Platelet Estimate Adequate Hypochromasia (manual) Slight Microcytosis Slight Schistocytes Few Sodium Level 151 mmol/L (136-145) Potassium Level 3.8 mmol/L (3.5-5.1) Chloride Level 113 mmol/L (98-107) Carbon Dioxide Level 32 mmol/L (20-31) Anion Gap 6 (5-15) Blood Urea Nitrogen 21 mg/dL (9-23) Creatinine 0.62 mg/dL (0.550-1.02) Glomerular Filtration Rate Calc 89 mL/min (>90) BUN/Creatinine Ratio 33.9 (10.0-20.0) Serum Glucose 126 mg/dL (74-106) Calcium Level 8.9 mg/dL (8.7-10.4) Magnesium Level 2.2 mg/dL (1.6-2.6) Urine Color Colorless (Yellow) Urine Clarity Clear (Clear) Urine pH 5.0 (5.0-9.0) Urine Specific [place] 1.009 (1.001-1.035) Urine Protein Negative (Negative) Urine Ketones Negative (Negative) Urine Blood Negative /uL (Negative) Urine Nitrite Negative (Negative) Urine Bilirubin Negative (Negative) Urine Urobilinogen Normal mg/dL (Negative) Urine Leukocyte Esterase Negative /uL (Negative) Urine RBC 8 /hpf (0 - 4) Urine Microscopic WBC 3 /HPF (0-5) Urine Squamous Epithelial Cells Few /hpf (<5) Urine Bacteria None seen /hpf (None Seen) Urine Yeast (Budding) Moderate /hpf (None Seen) Urine Glucose Normal mg/dL (Normal) Anabel Cells Few Test 12/10/24 04:45 12/09/24 18:17 12/08/24 12:00 12/06/24 09:23 Nucleated Red Blood Cells 1.0 % Total Bilirubin 0.3 mg/dL (0.2-1.0) Aspartate Amino Transferase (AST) 20 U/L (13-40) Alanine Aminotransferase (ALT) 16 U/L (7-40) Alkaline Phosphatase 71 U/L (46-116) Total Protein 5.8 g/dL (5.7-8.2) Albumin 3.3 g/dL (3.2-4.8) Body Fluid Source Pleural fluid Body Fluid pH 8.0 Body Fluid WBC (Manual) 71676 CUMM (0-200) Body Fluid RBC (Manual) 1653 CUMM (0-2000) Body Fluid Mononuclear Cells 16 % Body Fluid Polymorphonuclear Cells 84 % (0-25) Body Fluid Glucose 36 mg/dL (.) Body Fluid Total Protein 1.7 g/dL (.) Body Fluid Albumin 1.6 g/dL (Not Estab.) Body Fluid Lactate Dehydrogenase 1476 IU/L (.) Blood Gas Specimen Type Arterial Blood Gas Sample Site Left radial Blood Gas Patient Temperature 37.0 Arterial Blood Date Drawn [id number] Arterial Blood pH 7.404 (7.350-7.450) Arterial Blood Partial Pressure CO2 33.1 mmHg (32.0-45.0) Arterial Blood Partial Pressure O2 76.9 mmHg (83.0-108.0) Arterial Blood HCO3 20.2 mmol/L (21.0-28.0) Arterial Blood Oxygen Saturation 93.7 % (94.0-98.0) Arterial Blood Base Excess -3.9 mmol/L (-2.0-3.0) Arterial Blood Oxyhemoglobin 93.2 % (94.0-98.0) Arterial Blood Carboxyhemoglobin 0.0 % (0.5-1.5) Arterial Blood Methemoglobin 0.5 % (0.0-1.5) Kiran Test Modified Blood Gas Total Hemoglobin 9.70 g/dL (12.0-16.0) Blood Gas Liter Flow 12.00 Blood Gas Modality Oxymizer FiO2 % 82.0 Test 12/06/24 04:50 12/05/24 21:05 12/05/24 20:48 12/05/24 11:16 Lactic Acid Level 1.8 mmol/L (0.4-2.0) Large Platelets Few B-Type Natriuretic Peptide 492.81 pg/mL (0-100) Urine WBC Clumps Present /hpf (None Seen) Urine Hyaline Casts Many /lpf (0 - 2) Urine Opiates Screen Neg (NEGATIVE) Urine Fentanyl Screen Neg (NEGATIVE) Urine Barbiturates Screen Neg (NEGATIVE) Urine Phencyclidine Screen Neg (NEGATIVE) Urine Amphetamines Screen Neg (NEGATIVE) Urine Benzodiazepines Screen Neg (NEGATIVE) Urine Cocaine Screen Neg (NEGATIVE) Urine Cannabinoids Screen Neg (NEGATIVE) Prothrombin Time 12.4 sec (9.3-11.8) Prothrombin Time INR 1.19 (0.9-1.15) Activated Partial Thromboplast Time 31.0 SEC (24.5-34.5) Test 12/05/24 06:40 12/05/24 02:38 12/05/24 02:30 12/05/24 00:35 Troponin I High Sensitivity 123 ng/L (</=34) Vitamin B12 Level 1432 pg/mL (211-911) Vitamin D 25-Hydroxy 20.6 ng/mL (30.0-100) Influenza Type A Antigen Negative (Negative) Influenza Type B Antigen Negative (Negative) SARS-CoV-2 Antigen (Rapid) Negative (NEGATIVE) Haptoglobin 263 mg/dL (41-333) Reticulocyte Count (auto) 0.82 % (0.5-1.5) Hemoglobin A1c 5.4 % A1C (<5.7) Iron Level 8 ug/dL (50-170) Total Iron Binding Capacity 261 ug/dL (250-425) Percent Iron Saturation 3.1 % (15-50) Ferritin 56.2 ng/mL (10-291) Folic Acid 6.04 ng/mL (>5.38) Thyroid Stimulating Hormone (TSH) 1.09 uIU/mL (0.55-4.78) Other Laboratory Tests 12/12/24 04:54 Brief Hx & Hospital Course: This is a 84-year-old female transferred from [facility]. Patient is a poor historian. She presented to [place] due to left sided pleuritic chest pain. PMHx: hypertension, hyperlipidemia, coronary artery disease, peripheral vascular disease, chronic smoker, History of vascular bypass and femoral artery, history of GERD, hypothyroidism, recent GI bleed for which Plavix was discontinued PShx: Stent placement x3, most recent in 2022, Femoral bypass, AV fistula repair. FHx: Noncontributory Social Hx: lives at home with daughter and grandson At [place] she was noted to be Afib RVR and septic shock. Patient was stabilized and transferred to [facility] on Cardizem drip. At [facility], patient continued to have low blood pressure. She denied nausea, vomiting, fever or cough, but has leukocytosis and elevated lactic acid. Chest x-ray showed Left lower lung zone opacification concerning for pneumonia. Small left-sided pleural effusion. She was given fluid resuscitation, and Diltazem stopped. Recent Echo on Nov 12 shows EF 60%. On my assessment, patient only complain of shortness of breath. We had a discussion with her daughter and grandson, they stated that the patient began having left-sided chest pain most prominent on deep inspiration, she was also having cough, chills, having low appetite, and they noted that she was having altered mental status. In the ED, patient was placed on board spectrum antibiotics, she was given IV fluids, blood pressure responded to the fluids. Patient was quiet, lightheadedness throughout her hospitalization, this was likely due to sepsis due to pneumonia and UTI, patient was cultured, however no bacteria grew in any of the cultures that were repeated throughout her hospitalization. Patient was started on broad-spectrum antibiotics and it was narrowed down by the end. Patient initially was on Oxymizer and was weaned down to nasal cannula around two 3 L. patient has had bilateral thoracentesis in which yellow straw fluid was drawn, fluid was sent for analysis on it appeared to be exudate, likely due to parapneumonic effusion. Patient continued to be in AFib with RVR initially was on amiodarone on beta-lamont low the last blood days amiodarone was titrated down and patient was started on diltiazem, patient tolerated well, blood pressure remained stable, heart rate was in the 90s but less than 110. Considering patient's current status, multiple comorbidities, we had multiple meetings with the family members introduced the code status, it was decided at the end that the patient will be DNI/DNR, and that she will be placed on home with hospice. Patient was still A&O x1-2, she was only complaining of pain on the left side of her ribs, mild shortness of breath. Physical examination as below: General: Awake, A&Ox1-2 in moderate distress due to SOB HEENT: Head is normocephalic and atraumatic. Pupils are equal, round, and reactive to light. Neck: Supple with no cervical lymphadenopathy Heart: irregular rate without murmur, rub, or gallop. Lungs: diffuse crackles Abdomen: No external sign of injury. Bowel sounds are present. Abdomen is soft, nontender. No rebound, no guarding, no rigidity. There are no palpable masses. There is no flank pain on exam. Extremities: Strong peripheral pulses. There is no clubbing, no cyanosis, and no edema. Skin: No rash. Neurologic: Cranial nerves II-XII intact without motor, sensory, deficits. Patient will be discharged home with hospice, she will continue medication as prescribed by hospice physician. We extensively discussed hospice care with the family members, they agreed to send the patient home with hospice, we spent over 30 minute explained the plan. Case and plan discussed with Dr. Judd Operations or Procedures [address] [address] Ph: [phone] PATIENT: JAVIER KOHLI ACCT: [id number] : 1940 LOC: MEGAN IN ICU ROOM/ROOM: 0265D-A AGE/SEX: 84/F ADM STATUS: ADM IN ADM DATE: 12/05/24 UNIT: [id number] HEALTH INFORMATION MANAGEMENT PROCEDURE NOTE - DV :[id number] ISigned ORDERING PHYSICIAN: PROCEDURE(s): ORDER NUMBER(s): , ACCESSION NUMBER(s): Other Procedure Procedure Thoracentesis Indication Left pleural effusion Anesthetic Lidocaine Prep A time-out was completed verifying correct patient, procedure, site, positioning, and special equipment if applicable. The patients left side was prepped and draped in a sterile manner after the appropriate infiltration level was confirmed by ultrasound. 1% lidocaine was used anesthetize the surrounding skin. A finder needle was then used to locate fluid and clear yellow fluid was obtained. A 10-blade scalpel used to make the incision. The thoracentesis catheter was then threaded without difficulty. The patient had 500mL of clear yellow fluid removed. Dr. Garvin was present for the entire procedure. A post-procedure chest x-ray was ordered and the fluid will be sent for several studies. Estimated Blood Loss: 5mL The patient tolerated the procedure well and there were no complications. Informed consent obtained: Yes Risks, benefits, and alternati: Yes Date of Service: Dec 08, 2024 Billing Provider: KARLOS GARVIN MD Common Visit Codes: PROCEDURE ONLY MELIZA GUZMÁN Dec 08, 2024 12:41 DICTATED BY: MELIZA GUZMÁN DICATED DATE/TIME: 12/08/24 1241 SIGNED BY: MELIZA GUZMÁN <<Signature on File>> SIGNED DATE/TIME: 12/08/24 1241 CC: [place] [address] Ph: [phone] DIAGNOSTIC IMAGING Diagnostic Imaging Report : [id number] Signed PATIENT: JAVIER KOHLI ACCT: [id number] UNIT: [id number] : 1940 LOC: ER ROOM / BED: / AGE / SEX: 84 / F ADM STATUS: REG ER SERVICE 0030 ORDERING PHYSICIAN: NARINDER MARTINEZ MD PROCEDURE(s): CXR1 - CHEST XRAY 1 VIEW REASON: Sepsis ORDER NUMBER(s): [id number], ACCESSION NUMBER(s): [id number] CHEST RADIOGRAPH Indication: Sepsis Technique: Single frontal view of the chest was obtained Comparison: XY CHEST PORTABLE on DOS: 06/27/23, XY CHEST PORTABLE on DOS: 06/12/23 Findings/ IMPRESSION: Left lower lung zone opacification concerning for pneumonia. Small left-sided pleural effusion. Mild cardiomegaly. Recommend follow-up until resolution ATED BY: JARRELL PECK DO DICTATED DATE/TIME: 12/05/24122 SIGNED BY: JARRELL PECK DO SIGNED DATE/TIME: 12/05/24122 CC: [place] [address] Ph: [phone] DIAGNOSTIC IMAGING Diagnostic Imaging Report : [id number] Signed PATIENT: JAVIER KOHLI ACCT: [id number] UNIT: [id number] : 1940 LOC: ER ROOM / BED: / AGE / SEX: 84 / F ADM STATUS: REG ER SERVICE 0155 ORDERING PHYSICIAN: FARRAH SUH PROCEDURE(s): CX2CT - CHEST WITHOUT CONTRAST REASON: RULE OUT PNEUMONIA ORDER NUMBER(s): [id number], ACCESSION NUMBER(s): [id number] Procedure: CT CHEST WITHOUT CONTRAST Reason for study/Clinical History: RULE OUT PNEUMONIA Comparison Study: Chest x-ray 12/05/2024 Exam Date: 12/05/2024 02:07 AM TECHNIQUE: Multidetector CT of the chest was performed from the lung apices to the upper abdomen without the use of intravenous contract. Axial, coronal and sagittal multiplanar reformats were performed. Radiation optimization: All CT scans at this facility use at least one of these dose optimization techniques: automated exposure control mA and/or kV adjustment per patient size (includes targeted exams where dose is matched to clinical indication) or iterative reconstruction. Radiation Dose Information: CT Dose: CTDI volume is 5.3 mGy. Dose-length product is 209.3 mGy*cm The dose indicators for CT are the volume Computed Tomography (CT) Dose Index (CTDIvol) and the Dose Length Product (DLP), and are measured in units of mGy and mGy-cm, respectively. These indicators are not patient dose, but values generated from the CT scanner acquisition factors. The report includes radiation exposure data for exposures received during this examination. FINDINGS: Proximal airway appears patent. There is dense consolidation and near complete opacification of the lower left upper lobe and left lower lobe. Small bilateral pleural effusions. Prominent mediastinal lymph nodes. There is biatrial enlargement more pronounced on the right. Severe coronary artery calcifications. The esophagus is mildly distended with debris in the distal portion. Visualized portions of the upper abdomen appear unremarkable. No suspicious osseous lesion. IMPRESSION: 1. Dense consolidation and near complete opacification of the inferior left upper lobe and entire left lower lobe, favors infectious process 2. Given mildly dilated esophagus with debris distally, findings may be on the basis of aspiration 3. Small bilateral pleural effusions. ATED BY: ADORE BLANCO MD DICTATED DATE/TIME: 12/05/24318 SIGNED BY: ADORE BLANCO MD SIGNED DATE/TIME: 12/05/24318 CC: [place] [address] Ph: [phone] DIAGNOSTIC IMAGING Diagnostic Imaging Report : [id number] Signed PATIENT: JAVIER KOHLI ACCT: [id number] UNIT: [id number] : 1940 LOC: MEGAN IN ICU ROOM / BED: 0265D / A AGE / SEX: 84 / F ADM STATUS: ADM IN SERVICE 0728 ORDERING PHYSICIAN: MELIZA GUZMÁN RESIDENT PROCEDURE(s): CHSTU - CHEST ULTRASOUND REASON: pleural eff ORDER NUMBER(s): [id number], ACCESSION NUMBER(s): [id number] US CHEST ULTRASOUND, HISTORY: pleural eff COMPARISON(S): None TECHNICAL DATA: Transverse and longitudinal images are obtained of the chest. FINDING: IMPRESSION(S): Mild to moderate left pleural effusion. Small right pleural effusion. ATED BY: BUDDY PAZ MD DICTATED DATE/TIME: 12/06/24815 SIGNED BY: BUDDY PAZ MD SIGNED DATE/TIME: 12/06/24815 CC: [place] [address] Ph: [phone] DIAGNOSTIC IMAGING Diagnostic Imaging Report : [id number] Signed PATIENT: JAVIER KOHLI ACCT: [id number] UNIT: [id number] : 1940 [facility]GE / SEX: 84 / F ADM STATUS: ADM IN SERVICE 09 ORDERING PHYSICIAN: MELIZA GUZMÁN RESIDENT PROCEDURE(s): USGUIVASAC - US Guided Vascular Access REASON: PICC LINE PLACEMENT ORDER NUMBER(s): [id number], ACCESSION NUMBER(s): [id number] Exam: US US GUIDED VASCULAR ACCESS Clinical History: PICC LINE PLACEMENT Comparison: None Findings: Targeted sonographic evaluation of the right upper arm veinwas obtained utilizing grayscale and color Doppler imaging. IMPRESSION: Sonographic assistance for central line placement. Please refer to procedural report for detailed findings. ATED BY: RAAD ROSAS MD DICTATED DATE/TIME: 12/09/24516 SIGNED BY: RAAD ROSAS MD SIGNED DATE/TIME: 12/09/24516 CC: [place] [address] Ph: [phone] DIAGNOSTIC IMAGING Diagnostic Imaging Report : [id number] Signed PATIENT: JAVIER KOHLI ACCT: [id number] UNIT: [id number] : 1940 LOC: MEGAN IN ICU ROOM / BED: 0265D / A AGE / SEX: 84 / F ADM STATUS: ADM IN SERVICE 0400 ORDERING PHYSICIAN: MELIZA GUZMÁN PROCEDURE(s): CXRP - CHEST PORTABLE REASON: sob ORDER NUMBER(s): [id number], ACCESSION NUMBER(s): [id number] EXAM: XR Chest, 1 View CLINICAL INDICATION: sob TECHNIQUE: Frontal view of the chest. COMPARISON: XY CHEST PORTABLE on DOS: 12/08/24, XY CHEST PORTABLE on DOS: 12/07/24, XY CHEST PORTABLE on DOS: 12/07/24, XY CHEST PORTABLE on DOS: 12/06/24, XY CHEST PORTABLE on DOS: 12/06/24 FINDINGS: LUNGS AND PLEURAL SPACES: Mild CHF. Left perihilar airspace disease, likely pneumonia and/or with pleural effusion. No pneumothorax. HEART: Unremarkable. No cardiomegaly. MEDIASTINUM: Unremarkable. Normal mediastinal contour. BONES/JOINTS: Unremarkable. No acute fracture. TUBES, LINES AND DEVICES: Stable right-sided PICC line. OTHER FINDINGS: No significant change from the prior exam. . IMPRESSION: No significant change from the prior exam. ATED BY: TAMMI NGUYỄN MD DICTATED DATE/TIME: 12/09/24518 SIGNED BY: TAMMI NGUYỄN MD SIGNED DATE/TIME: 12/09/24518 CC: [place] [address] Ph: [phone] DIAGNOSTIC IMAGING Diagnostic Imaging Report : [id number] Signed PATIENT: JAVIER KOHLI ACCT: [id number] UNIT: [id number] : 1940 LOC: MEGAN IN ICU ROOM / BED: [facility] / A AGE / SEX: 84 / F ADM STATUS: ADM IN SERVICE 0906 ORDERING PHYSICIAN: MELIZA GUZMÁN PROCEDURE(s): HWOCT - HEAD WITHOUT CONTRAST REASON: ams ORDER NUMBER(s): [id number], ACCESSION NUMBER(s): [id number] CT HEAD WITHOUT CONTRAST INDICATION: ams EXAM DATE: 12/09/2024 10:15 AM COMPARISON: CT HEAD WITHOUT CONTRAST on DOS: 04/05/24, CT HEAD WITHOUT CONTRAST on DOS: 06/27/23 RADIATION DOSE: CTDIvol: 54 mGy, DLP: 863 mGy*cm PROCEDURE: CT scans of the head were obtained from the vertex to the skull base. Sagittal and coronal reconstructions were provided. All CT scans at this medical facility are performed using dose modulation techniques as appropriate to a performed exam including the following: Automated exposure control was utilized; adjustment of the MA and/or KV according to patient size; and use of iterative reconstruction technique. FINDINGS: There is sulcal and ventricular prominence. The brain otherwise shows normal morphology and hare-white matter differentiation, without intracranial hemorrhage, extra-axial fluid collection, mass effect or acute large vessel infarct. The ventricles are normal in size. The basal cisterns are patent. The skull and visible facial bones are intact. Right maxillary sinus fluid is seen. The other paranasal sinuses, mastoid air cells and middle ear cavities are well- aerated. The soft tissues of the scalp are unremarkable. IMPRESSION: Moderate to severe cerebral atrophy with nonspecific white matter changes. No acute intracranial abnormality. ATED BY: BUDDY PAZ MD DICTATED DATE/TIME: 12/09/24 1100 SIGNED BY: BUDDY PAZ MD SIGNED DATE/TIME: 12/09/24 1100 CC: [place] [address] Ph: [phone] DIAGNOSTIC IMAGING Diagnostic Imaging Report : [id number] Signed PATIENT: JAVIER KOHLI ACCT: [id number] UNIT: [id number] : 1940 [facility]: [facility]GE / SEX: 84 / F ADM STATUS: ADM IN SERVICE 0700 ORDERING PHYSICIAN: MELIZA GUZMÁN RESIDENT PROCEDURE(s): LHIP - L HIP COMPLETE XRAY REASON: HIP PAIN ORDER NUMBER(s): [id number], ACCESSION NUMBER(s): [id number] CLINICAL INDICATION: HIP PAIN TECHNIQUE: XY R HIP COMPLETE XRAY, XY L HIP COMPLETE XRAY Comparison: None FINDINGS/IMPRESSION: : There is no evidence of acute fracture or dislocation. Moderate volume stool in the rectum. Osteopenia. Moderate to severe degenerative changes of bilateral hips. ATED BY: RAAD ROSAS MD DICTATED DATE/TIME: 12/10/241106 SIGNED BY: RAAD ROSAS MD SIGNED DATE/TIME: 12/10/241106 CC: [place] [address] Ph: [phone] DIAGNOSTIC IMAGING Diagnostic Imaging Report : [id number] Signed PATIENT: JAVIER KOHLI ACCT: [id number] UNIT: [id number] : 1940 LOC: MEGAN IN ICU ROOM / BED: [facility] / A AGE / SEX: 84 / F ADM STATUS: ADM IN SERVICE 07 ORDERING PHYSICIAN: MELIZA GUZMÁN PROCEDURE(s): RHIP - R HIP COMPLETE XRAY REASON: HIP PAIN ORDER NUMBER(s): [id number], ACCESSION NUMBER(s): [id number] CLINICAL INDICATION: HIP PAIN TECHNIQUE: XY R HIP COMPLETE XRAY, XY L HIP COMPLETE XRAY Comparison: None FINDINGS/IMPRESSION: : There is no evidence of acute fracture or dislocation. Moderate volume stool in the rectum. Osteopenia. Moderate to severe degenerative changes of bilateral hips. ATED BY: RAAD ROSAS MD DICTATED DATE/TIME: 12/10/241106 SIGNED BY: RAAD ROSAS MD SIGNED DATE/TIME: 12/10/241106 CC: [place] [address] Ph: [phone] DIAGNOSTIC IMAGING Diagnostic Imaging Report : [id number] Signed PATIENT: JAVIER KOHLI ACCT: [id number] UNIT: [id number] : 1940 LOC: MEGAN IN ICU ROOM / BED: [facility] / A AGE / SEX: 84 / F ADM STATUS: ADM IN SERVICE 0729 ORDERING PHYSICIAN: MELIZA GUZMÁN PROCEDURE(s): KUB - KUB ABDOMEN SINGLE VIEW REASON: abdominal pain, constipation ORDER NUMBER(s): [id number], ACCESSION NUMBER(s): [id number] Date: 12/10/2024 10:18 AM Examination: XY KUB ABDOMEN SINGLE VIEW History: abdominal pain, constipation Comparison: None TECHNIQUE: Frontal views of the abdomen was obtained. FINDINGS: Gaseous distended loops of small bowel and colon with significant large stool burden in the colon. The lung bases are unremarkable. No acute osseous abnormality identified. IMPRESSION: Gaseous distended loops of small bowel and colon with significant large stool burden in the colon. ATED BY: ALIX ATKINSON MD DICTATED DATE/TIME: 12/10/24 120 SIGNED BY: ALIX ATKINSON MD SIGNED DATE/TIME: 12/10/24 120 CC: [place] [address] Ph: [phone] DIAGNOSTIC IMAGING Diagnostic Imaging Report : [id number] Signed PATIENT: JAVIER KOHLI ACCT: [id number] UNIT: [id number] : 1940 LOC: MEGAN IN ICU ROOM / BED: 0265D / A AGE / SEX: 84 / F ADM STATUS: ADM IN SERVICE 3 ORDERING PHYSICIAN: MELIZA GUZMÁN RESIDENT PROCEDURE(s): ABPL - CT AB PEL WO CON-NO ORAL OR IV REASON: abdominal distention, and pain ORDER NUMBER(s): [id number], ACCESSION NUMBER(s): [id number] Exam: CT CT AB PEL WO CON-NO ORAL OR IV History: abdominal distention, and pain Comparison Study: None Technique: Multidetector spiral CT of the abdomen was performed from lung bases to pubic symphysis. Imaging was performed without IV contrast. Axial, coronal and sagittal multiplanar reformats were obtained from the axial data set by the technologist. Radiation Dose : 1. Abdomen/Pelvis: CTDIvol 5.3 mGy, DLP 289.71 mGy*cm. Findings: Evaluation of solid organs is limited due to lack of intravenous contrast use. Lung Bases: Cardiomegaly. Coronary artery calcifications. Vascular calcifications of the aorta. Multifocal airspace disease. Small bilateral pleural effusions. Liver: The liver is normal in size. No focal lesions. Gallbladder and Biliary Tree: Unremarkable Spleen: Unremarkable Pancreas: The pancreas is grossly normal in appearance. Adrenal Glands: Unremarkable Kidneys: Kidneys are grossly normal without calculi or hydronephrosis. Bladder: Bladder is decompressed with a Issa catheter and cannot be adequately assessed. Bowel: The stomach is grossly normal in appearance. Diverticulosis. Large volume colonic stool. The appendix is not visualized; however, no secondary findings of acute appendicitis identified. Ascites: Absent Lymphadenopathy: No mesenteric, retroperitoneal or periportal lymphadenopathy. Abdominal Wall and Mesentery: Unremarkable. Vasculature: The visualized abdominal aorta is normal in size and caliber. There is extensive atherosclerotic calcification of the aorta and its branches. Evaluation of abdominal and pelvic vessels is limited due to lack of intravenous contrast. Pelvic Organs: Unremarkable Musculoskeletal: No aggressive focal bony lesions, acute fractures or dislocation. IMPRESSION: Large volume colonic stool. Radiation optimization: All CT scans at this facility use at least one of these dose optimization techniques: automated exposure control mA and/or kV adjustment per patient size (includes targeted exams where dose is matched to clinical indication) or iterative reconstruction. ATED BY: RAAD ROSAS MD DICTATED DATE/TIME: 12/10/24 1251 SIGNED BY: RAAD ROSAS MD SIGNED DATE/TIME: 12/10/24 1251 CC: [place] [id number] Ph: [phone] DIAGNOSTIC IMAGING Diagnostic Imaging Report : [id number] Signed PATIENT: JAVIER KOHLI ACCT: [id number] UNIT: [id number] : 1940 LOC: [facility] IN ICU ROOM / BED: 0265D / A AGE / SEX: 84 / F ADM STATUS: ADM IN SERVICE 0400 ORDERING PHYSICIAN: MELIZA GUZMÁN RESIDENT PROCEDURE(s): CXRP - CHEST PORTABLE REASON: sob ORDER NUMBER(s): [id number], ACCESSION NUMBER(s): [id number] EXAM: XR Chest, 1 View CLINICAL INDICATION: sob TECHNIQUE: Frontal view of the chest. COMPARISON: XY CHEST PORTABLE on DOS: 12/09/24, XY CHEST PORTABLE on DOS: 12/08/24, XY CHEST PORTABLE on DOS: 12/07/24, XY CHEST PORTABLE on DOS: 12/07/24, XY CHEST PORTABLE on DOS: 12/06/24 FINDINGS: LUNGS AND PLEURAL SPACES: Improving interstitial and patchy airspace disease in both lungs. No consolidation. No pneumothorax. HEART: Unremarkable. No cardiomegaly. MEDIASTINUM: Unremarkable. Normal mediastinal contour. BONES/JOINTS: Unremarkable. No acute fracture. TUBES, LINES AND DEVICES: Right peripherally inserted central catheter (PICC) tip in the superior vena cava. OTHER FINDINGS: . IMPRESSION: Improving interstitial and patchy airspace disease in both lungs. ATED BY: TAMMI NGUYỄN MD DICTATED DATE/TIME: 12/11/24513 SIGNED BY: TAMMI NGUYỄN MD SIGNED DATE/TIME: 12/11/24513 CC: Condition at Discharge: Guarded Final Diagnosis/Problems List #Metabolic encephalopathy due to Sepsis due to pneumonia gram (+) vs gram (-), vs atypicals #Pleural effusion, bilateral status post left thoracentesis #Lactic acidosis #AFib with RVR #MARQUISE due to VMN #NSTEMI type 2 #Microcytic anemia # COPD exacerbation #Recent GI bleed for which Plavix was discontinued (06/2024) #History of hypertension #Hyperlipidemia #Coronary artery disease S/P PCI X3 #Peripheral vascular disease, History of vascular bypass and femoral artery #History of GERD #Hypothyroidism #Cachexia, BMI: 18.9 #Current smoker #Vitamin D deficiency #hypernatremia # constipation Discharge Disposition: Hospice - Home Discharge Instruct/Medications Diet: Cardiac 2g Na,low cholest Activity: No Restrictions, As Tolerated Follow Up/Referral: fu with hospice doctor Medications: as directed by hospice doctor Discharge Statement: "Patient was advised to return to the ER or call 911 if any headaches, dizziness, shortness of breath, chest pain, abdominal pain, bleeding, fevers, or worsening of medical condition. Patient was counseled about treatment plan, medications, possible side effects, patientverbalized understanding. All questions were answered to the best of my ability. This discharge took greater then 30 minutes in planning, reviewing documentation, counseling the patient, and discussing with other team members." ASSESSMENT ASSESSMENT Assessment sepsis due to pneumonia Date of Service: Dec 12, 2024 Billing Provider: DAISY JUDD MD Common Visit Codes: 88948-XFK/OBS DISCH DAY >30min MELIZA GUZMÁN RESIDENT Dec 12, 2024 17:50 DAISY JUDD MD Dec 13, 2024 12:43
== END 2024-12-12 19:00 | disposition hospice, home (50) | DRG 871 ==
LOC: EDUNIT# 00:23 → EDBD 00:23 → ER 00:23 → OVERFLOW 03:14 → DOU IN ICU 23:00 → TELE-CENTR 12-11 14:32
PROVIDERS: ADMIT Internal Medicine; ATTEND Emergency Medicine
PROC: 0W9B3ZZ Drainage of Left Pleural Cavity, Percutaneous Approach (ICD-10-PCS; 2024-12-06)
PROC: 02HV33Z Insertion of Infusion Device into Superior Vena Cava, Percutaneous Approach (ICD-10-PCS; 2024-12-07)
PROC: B548ZZA Ultrasonography of Superior Vena Cava, Guidance (ICD-10-PCS; 2024-12-07)
PROC: 0W9B3ZZ Drainage of Left Pleural Cavity, Percutaneous Approach (ICD-10-PCS; principal; 2024-12-08)
DX: A41.50 Gram-negative sepsis, unspecified (principal); G93.41 Metabolic encephalopathy; I21.A1 Myocardial infarction type 2; J15.69 Pneumonia due to other Gram-negative bacteria; N17.0 Acute kidney failure with tubular necrosis; R65.21 Severe sepsis with septic shock; J96.01 Acute respiratory failure with hypoxia; J15.9 Unspecified bacterial pneumonia; I13.0 Hypertensive heart and chronic kidney disease with heart failure and stage 1 through stage 4 chronic kidney disease, or unspecified chronic kidney disease; R64 Cachexia; E87.20 Acidosis, unspecified; I50.22 Chronic systolic (congestive) heart failure; J44.1 Chronic obstructive pulmonary disease with (acute) exacerbation; Z68.1 Body mass index [BMI] 19.9 or less, adult; J44.0 Chronic obstructive pulmonary disease with (acute) lower respiratory infection; E87.0 Hyperosmolality and hypernatremia; Z20.822 Contact with and (suspected) exposure to COVID-19; E78.5 Hyperlipidemia, unspecified; I48.91 Unspecified atrial fibrillation; I25.10 Atherosclerotic heart disease of native coronary artery without angina pectoris; N18.9 Chronic kidney disease, unspecified; I73.9 Peripheral vascular disease, unspecified; K21.9 Gastro-esophageal reflux disease without esophagitis; E03.9 Hypothyroidism, unspecified; E55.9 Vitamin D deficiency, unspecified; F17.210 Nicotine dependence, cigarettes, uncomplicated; D50.9 Iron deficiency anemia, unspecified; K59.00 Constipation, unspecified; Z79.899 Other long term (current) drug therapy
CPT/HCPCS: 32555; 36415; 36556; 36600; 70450; 71045; 71250; 73502; 74018; 74176; 76604; 76937; 76942; 80048; 80053; 80307; 81001; 82306; 82607; 82728; 82746; 82805; 82962; 83010; 83036; 83540; 83550; 83605; 83735; 83880; 83986; 84132; 84295; 84443; 84484; 85007; 85014; 85018; 85027; 85045; 85610; 85730; 87040; 87070; 87081; 87086; 87088; 87205; 87426; 87804; 89051; 92610; 93005; 94640; 97163; G0378; J1756; J1815; J2003; J2185; J2470; J2543; J3480